=== PATIENT | female | born 1955 ===

== ENCOUNTER 2020-12-19 08:50 | Outpatient (REF) | payer MEDICARE, SELFPAY ==
[2020-12-19 11:20] LABS: Glucose Urine UA NEG (NEG); Leukocyte Esterase Urine NEG (NEG); Nitrite Urine NEG (NEG); Urine Blood NEG (NEG); Urine Ketones NEG (NEG); Urine Protein NEG (NEG-TRACE)
[2020-12-19 11:22] LABS: Appearance Urine CLEAR; Color Urine YELLOW
[2020-12-19 11:32] LABS: RBC Urine 0 /HPF (0); WBC Urine 0 /HPF (0-4)
[2020-12-19 11:39] LABS: Basophils Percent Auto 0.7 % (0-2); Eosinophils Percent Auto 0.7 % (0-4); Hematocrit 44.3 % (37-47); Hemoglobin 13.5 g/dl (12.0-16.0); Imm Gran Abs Auto 0.01 X10*3/uL (0.00-0.03); Imm Gran Pct Auto 0.2 % (0.0-0.4); Lymphocytes Absolute Auto 1.8 X10*3/uL (1.2-4.9); Lymphocytes Percent Auto 40.5 % (20-40); MANUAL DIFF FLAG SCAN; Mean Corpuscular HGB Conc 30.5 g/dl (31.0-35.0); Mean Corpuscular Hemoglobin 20.2 pg (27.0-33.0); Mean Corpuscular Volume 66.2 fL (80-98); Monocytes Absolute Auto 0.3 X10*3/uL (0.1-1.2); Monocytes Percent Auto 6.4 % (2-11); Neutrophils Absolute Auto 2.3 X10*3/uL (2.0-8.3); Neutrophils Percent Auto 51.5 % (45-73); PLT CLUMP 1; Red Blood Count 6.69 X10*6/uL (4.20-5.50); Red Cell Distribution Width 18.1 % (11.0-16.0); SCAN SMEAR FLAG 1
[2020-12-19 12:05] LABS: Platelet Count 54 X10*3/uL (160-400); White Blood Count 4.5 X10*3/uL (4.8-10.8)
[2020-12-19 12:06] LABS: SLIDE REVIEW VERIFIED
[2020-12-19 12:35] LABS: Alanine Aminotransferase 17 U/L (0-31); Albumin Level 4.7 g/dL (3.5-5.0); Alkaline Phosphatase 90 U/L (39-117); Anion Gap 21 (12-20); Aspartate Amino Transferase 31 U/L (5-31); Bilirubin Total 0.8 mg/dL (0.0-1.0); Blood Urea Nitrogen 20 mg/dL (9-16); Calcium 9.8 mg/dL (8.4-10.2); Carbon Dioxide 20 mmol/L (22-29); Chloride 106 mmol/L (96-108); Cholesterol 263 mg/dL; Estimated Glomerular Filt Rate > 60; Glucose Fasting 86 mg/dL (60-99); HDL Cholesterol 80 mg/dL; LDL Cholesterol Calculated 164 mg/dl; Potassium 4.6 mmol/L (3.3-5.1); Sodium 142 mmol/L (135-145); Total Protein 7.6 g/dL (6.5-8.0); Triglycerides 96 mg/dL
[2020-12-19 12:43] LABS: Vitamin D 25-OH Total 19.3 ng/mL (>30)
== END 2020-12-19 08:51 | disposition home or self-care (01) ==
LOC: HO.HMGCLDS 08:50
PROVIDERS: PCP Internal Medicine; Visit Provider Internal Medicine
DX: Z00.00 Encounter for general adult medical examination without abnormal findings (principal)
CPT/HCPCS: 36415; 80053; 80061; 81001; 82306; 85025

== ENCOUNTER 2020-12-28 08:54 | Outpatient (REF) | payer MEDICARE, SELFPAY ==
[2020-12-28 11:59] LABS: Lactate Dehydrogenase 181 U/L (122-220)
[2020-12-28 12:05] LABS: Hematocrit 40.1 % (37-47); Hemoglobin 12.2 g/dl (12.0-16.0); Mean Corpuscular HGB Conc 30.4 g/dl (31.0-35.0); Mean Corpuscular Hemoglobin 20.1 pg (27.0-33.0); Mean Corpuscular Volume 66.1 fL (80-98); Platelet Count 196 X10*3/uL (160-400); Red Blood Count 6.07 X10*6/uL (4.20-5.50); Red Cell Distribution Width 17.8 % (11.0-16.0); White Blood Count 4.8 X10*3/uL (4.8-10.8)
[2020-12-28 12:14] LABS: PLT ABN DIST 1
[2020-12-29 13:31] LABS: Anti Nuclear Antibody Screen NEGATIVE (NEGATIVE)
== END 2020-12-28 08:55 | disposition home or self-care (01) ==
LOC: HO.HMGCLDS 08:54
PROVIDERS: PCP Internal Medicine; Visit Provider Internal Medicine
DX: D69.6 Thrombocytopenia, unspecified (principal)
CPT/HCPCS: 36415; 83615; 85027; 86038; 86039

== ENCOUNTER 2021-02-23 08:13 | Outpatient (REF) | payer MEDICARE, SELFPAY ==
--- NOTE | ~2021-02-23 | MM_ITS ---
EXAMINATION: MM SCREENING DIGITAL BREAST TOMOSYNTHESIS, BILATERAL CLINICAL INFORMATION: Screening. Asymptomatic. The lifetime risk of breast cancer based on the Tyrer-Cuzick Model is 4.1%. COMPARISON: Mammography: September 30, 2017 and studies dating back to May 22, 2011 TECHNIQUE: Digital breast tomosynthesis is performed in both the craniocaudal and mediolateral oblique views along with computer-aided detection (CAD). Synthesized 2D images are generated from the tomosynthesis. FINDINGS: There are scattered areas of fibroglandular density (ACR BI-RADS breast composition Category b). There are no significant masses, abnormal calcifications, or other abnormalities. MM/MM tomosynthesis screening BI IMPRESSION: There are no significant changes from prior study. ASSESSMENT: BI-RADS 1: Negative RECOMMENDATION: Routine annual mammography screening. This patient's information was entered into a reminder system with a target due date for their next mammogram.
== END 2021-02-23 08:14 | disposition home or self-care (01) ==
LOC: HO.MAMMO 08:13
PROVIDERS: Visit Provider Internal Medicine
DX: Z12.31 Encounter for screening mammogram for malignant neoplasm of breast (principal)
CPT/HCPCS: 77063; 77067

== ENCOUNTER 2021-12-20 08:53 | Outpatient (REF) | payer MEDICARE, SELFPAY ==
[2021-12-20 11:33] LABS: Hematocrit 40.5 % (37.0-47.0); Hemoglobin 12.3 g/dl (12.0-16.0); Mean Corpuscular HGB Conc 30.4 g/dl (31.0-35.0); Mean Corpuscular Hemoglobin 20.1 pg (27.0-33.0); Mean Corpuscular Volume 66.1 fL (80.0-98.0); PLT CLUMP 1; Red Blood Count 6.13 X10*6/uL (4.20-5.50); Red Cell Distribution Width 17.2 % (11.0-16.0)
[2021-12-20 11:59] LABS: TSH reflex Free T4 1.69 uIU/mL (0.32-4.0); Vitamin D 25-OH Total 23.4 ng/mL (>30)
[2021-12-20 12:09] LABS: Alanine Aminotransferase 17 U/L (0-31); Albumin Level 4.5 g/dL (3.5-5.0); Alkaline Phosphatase 76 U/L (39-117); Anion Gap 15 (12-20); Aspartate Amino Transferase 25 U/L (5-31); Bilirubin Total 0.5 mg/dL (0.0-1.0); Blood Urea Nitrogen 21 mg/dL (9-16); Carbon Dioxide 24 mmol/L (22-29); Chloride 106 mmol/L (96-108); Cholesterol 273 mg/dL; Estimated Glomerular Filt Rate > 60; Glucose Fasting 99 mg/dL (60-99); HDL Cholesterol 78 mg/dL; LDL Cholesterol Calculated 171 mg/dl; Potassium 4.7 mmol/L (3.3-5.1); Sodium 140 mmol/L (135-145); Total Protein 7.2 g/dL (6.5-8.0); Triglycerides 122 mg/dL
[2021-12-20 12:48] LABS: Platelet Count 157 X10*3/uL (160-400)
== END 2021-12-20 08:54 | disposition home or self-care (01) ==
LOC: HO.HMGCLDS 08:53
PROVIDERS: Visit Provider Internal Medicine
DX: Z00.00 Encounter for general adult medical examination without abnormal findings (principal); E78.5 Hyperlipidemia, unspecified
CPT/HCPCS: 36415; 80053; 80061; 82306; 84443; 85027

== ENCOUNTER 2022-02-26 07:47 | Outpatient (REF) | payer MEDICARE, SELFPAY ==
--- NOTE | ~2022-02-26 | MM_ITS ---
EXAMINATION: MM SCREENING DIGITAL BREAST TOMOSYNTHESIS, BILATERAL CLINICAL INFORMATION: Screening. Asymptomatic. The lifetime risk of breast cancer based on the Tyrer-Cuzick Model is 4%. COMPARISON: Mammography: 02/23/2001, 09/30/2017 TECHNIQUE: Digital breast tomosynthesis is performed in both the craniocaudal and mediolateral oblique views along with computer-aided detection (CAD). Synthesized 2D images are generated from the tomosynthesis. FINDINGS: There are scattered areas of fibroglandular density (ACR BI-RADS breast composition Category b). There are no significant masses, abnormal calcifications, or other abnormalities. Parenchymal pattern is similar to prior studies. Small benign nodular asymmetry anterior left breast on CC view is stable. No developing density. The axilla and skin contours are unremarkable. MM/MM tomosynthesis screening BI IMPRESSION: No mammographic evidence of malignancy. ASSESSMENT: BI-RADS 2: Benign RECOMMENDATION: Routine annual mammography screening. This patient's information was entered into a reminder system with a target due date for their next mammogram.
--- NOTE | ~2022-02-26 | MM_ITS ---
EXAMINATION: BONE DENSITOMETRY CLINICAL INDICATION: Osteoporosis. COMPARISON: Baseline BD dated 10/31/2017. TECHNIQUE: Using a LIN TV DXA System (software version: 13.1) manufactured by [employer], dual-energy x-ray absorptiometry was performed of the lumbar spine and left hip. The images are of good technical quality. Summary results are attached. FINDINGS: AP SPINE L1-L4: Current: BMD 1.227 g/cm2, Z-score 1.9, T-score 0.4, normal, 1.4% decrease from baseline (<5% change is not significant). Baseline: BMD 1.245 g/cm2. LEFT FEMUR, NECK: Current: BMD 0.973 g/cm2, Z-score 1.1, T-score -0.5, normal. Baseline: BMD 0.940 g/cm2. LEFT FEMUR, TOTAL: Current: BMD 0.907 g/cm2, Z-score 0.5, T-score -0.8, normal, 1.7% decrease from baseline (<5% change is not significant). Baseline: BMD 0.923 g/cm2. IDENTIFIED RISK FACTORS: Menopause. HISTORY OF FRACTURE: None listed. MEDICATIONS: Vitamin D. MM/XR DEXA axial skeleton IMPRESSION: 1. DIAGNOSIS: Normal bone density based on the lowest T-score value of -0.8 in the total femur applying World Health Organization criteria. 2. 10-YEAR FRACTURE RISK PREDICTION, FRAX: According to the guidelines, FRAX calculation should only be performed on patients in the osteopenia bone density category. Therefore, FRAX was not performed on this patient. 3. Treatment Recommendations: NOF guidelines recommend consideration for treatment in postmenopausal women and men age 50 and older presenting with the following: -A hip or vertebral (clinical or morphometric) fracture. -T-score less than or equal to -2.5 at the femoral neck or spine after appropriate evaluation to exclude secondary causes. -Low bone mass at the hip or spine and a 10-year fracture probability by FRAX of greater than or equal to 3% for hip fracture or greater than or equal to 20% for major osteoporotic fracture based on the [place] adapted WHO algorithm. 4. Other Recommendations: All treatment decisions require clinical judgment and consideration of individual patient factors, including patient preferences, comorbidities, previous drug use, risk factors not captured in the FRAX model (e.g. frailty, falls, vitamin D deficiency, increased bone turnover, interval significant decline in bone density) and possible under or overestimation of fracture risk by FRAX. FUTURE SCAN RECOMMENDATION: People with diagnosed cases of osteoporosis or at high risk for fracture should have regular bone mineral density tests. For patients eligible for Medicare, routine testing is allowed once every 2 years. The testing frequency can be increased to one year for patients who have rapidly progressing disease, those who are receiving or discontinuing medical therapy to restore bone mass, or have additional risk factors.
== END 2022-02-26 07:48 | disposition home or self-care (01) ==
LOC: HO.MAMMO 07:47
PROVIDERS: PCP Internal Medicine; Visit Provider Internal Medicine
DX: Z12.31 Encounter for screening mammogram for malignant neoplasm of breast (principal); Z13.820 Encounter for screening for osteoporosis; M81.0 Age-related osteoporosis without current pathological fracture; Z78.0 Asymptomatic menopausal state
CPT/HCPCS: 77063; 77067; 77080

== ENCOUNTER 2022-12-25 08:51 | Outpatient (REF) | payer MEDICARE, SELFPAY ==
[2022-12-25 11:28] LABS: Basophils Absolute Auto 0.1 X10*3/uL (0.0-0.2); Eosinophils Absolute Auto 0.1 X10*3/uL (0.0-0.4); Eosinophils Percent Auto 1.6 % (0-4); Hemoglobin 12.3 g/dl (12.0-16.0); Imm Gran Abs Auto 0.01 X10*3/uL (0.00-0.03); Imm Gran Pct Auto 0.2 % (0.0-0.4); Lymphocytes Absolute Auto 2.3 X10*3/uL (1.2-4.9); Lymphocytes Percent Auto 44.5 % (20-40); MANUAL DIFF FLAG SCAN; Mean Corpuscular HGB Conc 30.8 g/dl (31.0-35.0); Mean Corpuscular Hemoglobin 20.4 pg (27.0-33.0); Mean Corpuscular Volume 66.4 fL (80.0-98.0); Monocytes Absolute Auto 0.4 X10*3/uL (0.1-1.2); Monocytes Percent Auto 8.4 % (2-11); Neutrophils Absolute Auto 2.3 x10*3/uL (2.0-8.3); Neutrophils Percent Auto 44.3 % (45-73); PLT CLUMP 1; Red Blood Count 6.02 X10*6/uL (4.20-5.50); SCAN SMEAR FLAG 1
[2022-12-25 11:29] LABS: Platelet Count 200 X10*3/uL (160-400); White Blood Count 5.1 X10*3/uL (4.8-10.8)
[2022-12-25 12:14] LABS: Alanine Aminotransferase 19 U/L (0-31); Albumin Level 4.6 g/dL (3.5-5.0); Alkaline Phosphatase 86 U/L (39-117); Anion Gap 14 (12-20); Aspartate Amino Transferase 25 U/L (5-31); Bilirubin Total 0.8 mg/dL (0.0-1.0); Blood Urea Nitrogen 13 mg/dL (9-16); Calcium 9.8 mg/dL (8.4-10.2); Carbon Dioxide 27 mmol/L (22-29); Chloride 106 mmol/L (96-108); Cholesterol 276 mg/dL; Estimated Glomerular Filt Rate > 60; Glucose Fasting 99 mg/dL (60-99); HDL Cholesterol 83 mg/dL; LDL Cholesterol Calculated 171 mg/dl; Potassium 4.2 mmol/L (3.3-5.1); Sodium 143 mmol/L (135-145); Triglycerides 114 mg/dL
[2022-12-25 12:26] LABS: SLIDE REVIEW VERIFIED
== END 2022-12-25 08:52 | disposition home or self-care (01) ==
LOC: HO.HMGCLDS 08:51
PROVIDERS: PCP Internal Medicine; Visit Provider Internal Medicine
DX: Z00.00 Encounter for general adult medical examination without abnormal findings (principal); E55.9 Vitamin D deficiency, unspecified; E78.5 Hyperlipidemia, unspecified
CPT/HCPCS: 36415; 80053; 80061; 82306; 85025

== ENCOUNTER 2023-06-11 09:13 | Emergency (ER) | payer MEDICARE, SELFPAY ==
--- NOTE | ~2023-06-11 | CT_ITS ---
EXAMINATION: CT ABDOMEN AND PELVIS WITH CONTRAST CLINICAL INFORMATION: Abdominal pain COMPARISON: None available. TECHNIQUE: Multidetector volumetric images were obtained from the superior aspect of the liver through the pubic symphysis following administration 85 mL of Omnipaque 350 intravenous contrast. Sagittal and coronal reformatted images were obtained on the technologist's workstation. This CT examination was performed using dose optimization techniques as appropriate, variously including the following: *Automated exposure control *Adjustment of mA and/or kV according to patient size (this includes techniques or standardized protocols for targeted exams where dose is matched to indication/reason for exam; i.e. extremities or head) *Use of iterative reconstruction technique DLP: 427 mGy-cm FINDINGS: Visualized lung bases are well aerated. The liver is mildly enlarged. There are a few subcentimeter hypodense foci within the liver which are too small to accurately characterize but statistically cysts. The gallbladder is normal in appearance. There is mild fatty atrophy of the pancreas. The spleen is normal in size. Small anterior splenule. The adrenal glands are unremarkable. Symmetrically enhancing kidneys. Bilateral parapelvic cysts are noted, more prominent within the left kidney. There is no hydronephrosis of either kidney. Normal caliber loops of small and large bowel. Normal appendix. There is circumferential mucosal thickening of the distal sigmoid colon and rectum with associated perirectal fat stranding. Small amount of free pelvic fluid is noted. Normal caliber abdominal aorta demonstrating mild atherosclerotic disease. Refluxing nondilated left ovarian vein noted. No retroperitoneal lymphadenopathy. Small fat-containing umbilical hernia. The bladder is normal in appearance. Coarsely calcified fibroid noted within an otherwise unremarkable appearing uterus. No inguinal lymphadenopathy. Mild diffuse degenerative changes of the spine. CT/CT abdomen pelvis w IV con IMPRESSION: Circumferential mucosal thickening of the distal sigmoid colon and rectum with associated perirectal fat stranding. 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 Fleischner guidelines were followed.
[2023-06-11 09:26] VITALS: BP 156/80; PULSE 100; RESP 19; TEMP 36.6; O2SAT 98; BMI 26.4
[2023-06-11 11:32] VITALS: BP 173/88; PULSE 96; RESP 16; TEMP 37.2; O2SAT 100
--- NOTE | 2023-06-11 11:39 | PC.NURSE ---
Pt is a/ox4. reporting she has not been able to have a BM x3 days, starting yesterday she reported she felt her rectum prolapse. she has been passing gas, burping, and able to pass some liquid when passing gas. BSx4. soft, mild tenderness noted in abdomen.
--- NOTE | 2023-06-11 12:46 | ED_ITS ---
HPI - General Adult General Chief complaint: General Medical Stated complaint: Medical Issue Time Seen by Provider: 06/11/23 11:26 History of Present Illness HPI narrative: Patient is a 66-year-old female presents today with having a possible rectal prolapse. Claims something is coming from her rectum. She was trying to cut a bowel movement. Denies any fever chills. No vomiting. Positive decreased appetite. Denies any fever chills. No chest pain. No diaphoresis. Positive history many years ago. Related Data Home Medications Medication Instructions Recorded Confirmed cholecalciferol (vitamin D3) 50 50 mcg PO DAILY 12/25/22 12/25/22 mcg (2,000 unit) capsule magnesium 200 mg tablet 200 mg PO DAILY 12/25/22 12/25/22 vitamin B complex 1 tab PO DAILY 12/25/22 12/25/22 Allergies Allergy/AdvReac Type Severity Reaction Status Date / Time No Known Allergies Allergy Verified 12/25/22 08:11 [No Known Allergies*] acetaminophen [Percocet] AdvReac Unknown nausea Verified 12/25/22 08:11 oxycodone [Percocet] AdvReac Unknown nausea Verified 12/25/22 08:11 Review of Systems 2 Review of Systems: No chest pain or shortness of breath no diaphoresis Yes all other systems are reviewed and are negative PMFSH Past Medical History Attestation statement: The following information was validated with the patient. Medical History Colon cancer screening Normal breast exam Vitamin D deficiency Hyperlipidemia Thrombocytopenia Annual physical exam Family History Family History Father No problems noted. Mother Diabetes Hypertension Stroke Social History Social History Housing: House Alcohol intake: current Patient Tobacco Use Status: Former Tobacco user Quit Date: 1995 Years Smoked: 20 years e-Cigarette/Vaping Use: Never Used Advance Directives: No Advance Directives Information Provided: Yes Current occupational status: retired Cognitive needs: No Hearing needs: No Vision needs: No Physical Exam ED Vital Signs: Vital Signs - 24 hr 06/11/23 09:26 06/11/23 11:32 06/11/23 15:23 Temperature 98 F 99.0 F 98.3 F Pulse Rate 100 96 90 Respiratory Rate 19 16 16 Blood Pressure 156/80 H 173/88 H 155/62 H Pulse Oximetry 98 100 98 Oxygen Delivery Method Room Air Room Air Room Air BMI result Body Mass Index 26.4 Appearance: Alert. Oriented X3. No acute distress. Eyes: Pupils equal, round and reactive to light. ENT: Pharynx normal. Neck: Normal inspection. Neck supple. No lymph nodes noted. No crepitus CVS: Normal heart rate and rhythm. Pulses normal. Normal S1 and S2 Respiratory: No respiratory distress. Breath sounds normal. No Wheezing. No rales Abdomen: Soft and nontender. No rigidity. No distention. good BS x4 Skin: Skin warm and dry. Normal skin color. Normal skin turgor. Extremities: No lower extremity edema. Neurovascular intact to all extremities. No Lacerations. No Rash Neuro: Oriented X 3. No motor deficit. No sensory deficit. Moving all extermities. No slurred speech Medications Administered Discontinued Medications Generic Name Dose Route Start Last Admin Trade Name Freq PRN Reason Stop Dose Admin Sodium Chloride 500 mls @ 999 mls/hr 06/11/23 12:45 06/11/23 15:07 Ns IV 06/11/23 13:15 999 mls/hr .Q31M TERRY Administration Sodium Biphosphate/Sodium Phosphate 133 ml 06/11/23 12:23 06/11/23 15:07 Sodium Phosphate,[place]-Dibasic 133 Ml Enema MN 06/11/23 12:24 133 ml ONCE ONE Administration Medical Decision Making Medical Decision Making [facility] Narrative: Patient complaining of possible prolapse of the rectum. On exam patient has no prolapse visible both from the vaginal side or from the rectal side. Nurse Sheridan was present during the exam. A rectal exam was done. Patient has grossly impacted with stool. I manually disimpacted patient with large amount of stool resulted. Subsequently an enema was given even more stool was removed. Symptomatic the patient feel improved. Because patient has abdominal pain more mature and a CT scan of the abdomen pelvis was ordered. Currently labs are pending CT scans are pending. Differential Diagnosis Differential Diagnoses: The differential diagnosis associated with the presentation includes Obstruction, diverticulitis, kidney stone, Admission/Observation Consideration of admission/observation: Escalation of care including admission/observation considered Lab Data [facility] Lab Attestation statement: I reviewed the patient's lab results. 06/11/23 15:29 06/11/23 15:29 Labs: Lab Results 06/11/23 Range/Units 13:15 Urine Color Yellow Urine Appearance Clear Urine pH 6.5 (5.0-9.0) Ur Specific [place] <= 1.005 (1.005-1.025) Urine Protein Negative (Neg-Trace) mg/dL Urine Glucose (UA) Negative (Negative) mg/dL Urine Ketones Negative (Negative) mg/dL Urine Blood Small (1+) H (Negative) Urine Nitrite Negative (Negative) Ur Leukocyte Esterase Moderate (2+) H (Negative) Urine RBC 3-5 H (0-2) /HPF Urine WBC 6-10 H (0-5) /HPF Ur Squamous Epith Cells 0-2 (0-2) /HPF Urine Bacteria Trace (None Seen) Hyaline Casts 0-2 (0-2) /LPF External Record Review External record reviewed: Office record Patient's primary care record was reviewed Discharge Plan Discharge Clinical Impression: Abdominal pain Patient Disposition: Still a Patient Prescriptions: No Action vitamin B complex Tablet 1 tab PO DAILY magnesium 200 mg tablet 200 mg PO DAILY cholecalciferol (vitamin D3) 50 mcg (2,000 unit) capsule 50 mcg PO DAILY
[2023-06-11 15:23] VITALS: BP 155/62; PULSE 90; RESP 16; TEMP 36.8; O2SAT 98
--- NOTE | 2023-06-11 15:37 | MHC.EDTECH ---
THIS PCT ASSUMED CARE OF PT AT 1500 ,VITALS SIGN TAKEN ,BLOOD DRAWN AND SENT TO LAB .
[2023-06-11 15:52] LABS: Basophils Percent Auto 0.2 % (0-2); Eosinophils Percent Auto 0.1 % (0-4); Hemoglobin 11.8 g/dl (12.0-16.0); Mean Corpuscular Hemoglobin 20.5 pg (27.0-33.0); SCAN SMEAR FLAG 1
[2023-06-11 15:53] LABS: Alanine Aminotransferase 11 U/L (0-31); Albumin Level 4.2 g/dL (3.5-5.0); Alkaline Phosphatase 74 U/L (39-117); Anion Gap 18 (12-20); Aspartate Amino Transferase 20 U/L (5-31); Bilirubin Direct 0.2 mg/dL (0.0-0.5); Bilirubin Total 0.7 mg/dL (0.0-1.0); Blood Urea Nitrogen 8 mg/dL (9-16); Calcium 9.6 mg/dL (8.4-10.2); Carbon Dioxide 17 mmol/L (22-29); Chloride 110 mmol/L (96-108); Creatinine Clr Calc Pharmacy 71.9; Estimated Glomerular Filt Rate > 60; Glucose Random 100 mg/dL (60-115); Lipase 13 U/L (8-78); Potassium 4.5 mmol/L (3.3-5.1); Sodium 140 mmol/L (135-145); Total Protein 6.9 g/dL (6.5-8.0)
[2023-06-11 15:54] LABS: Hematocrit 37.1 % (37.0-47.0); Imm Gran Abs Auto 0.04 X10*3/uL (0.00-0.03); Imm Gran Pct Auto 0.3 % (0.0-0.4); Lymphocytes Absolute Auto 1.9 X10*3/uL (1.2-4.9); Lymphocytes Percent Auto 13.7 % (20-40); MANUAL DIFF FLAG SCAN; Mean Corpuscular HGB Conc 31.8 g/dl (31.0-35.0); Monocytes Absolute Auto 1.2 X10*3/uL (0.1-1.2); Monocytes Percent Auto 8.8 % (2-11); Neutrophils Absolute Auto 10.4 x10*3/uL (2.0-8.3); Neutrophils Percent Auto 76.9 % (45-73); PLT CLUMP 1; Red Blood Count 5.77 X10*6/uL (4.20-5.50)
--- NOTE | 2023-06-11 15:55 | PC.NURSE ---
Pt removed from restraints at 1545 x4 extremities
[2023-06-11 16:00] LABS: Mean Corpuscular Volume 64.3 fL (80.0-98.0)
[2023-06-11 16:01] LABS: PLT ABN DIST 1; White Blood Count 13.5 X10*3/uL (4.8-10.8)
[2023-06-11 16:37] LABS: Platelet Count 191 X10*3/uL (160-400); SLIDE REVIEW VERIFIED
[2023-06-11] MEDS: levoFLOXacin 500 MG TABLET PO (17:33)
[2023-06-11] MEDS: metroNIDAZOLE 500 MG TABLET PO (17:33)
== END 2023-06-11 17:40 | disposition home or self-care (01) ==
PROVIDERS: Emergency Medicine Emergency Medical Services; Emergency Provider Emergency Medicine; PCP Internal Medicine
DX: R10.9 Unspecified abdominal pain (principal); N39.0 Urinary tract infection, site not specified; K56.41 Fecal impaction; E78.5 Hyperlipidemia, unspecified; Z79.899 Other long term (current) drug therapy
CPT/HCPCS: 36415; 74177; 80048; 80076; 81001; 83690; 85025; 87086; 96360; 99284; Q9967

== ENCOUNTER 2023-12-25 09:11 | Outpatient (REF) | payer MEDICARE, SELFPAY ==
[2023-12-25 13:30] LABS: MANUAL DIFF FLAG NO
[2023-12-25 13:54] LABS: Basophils Percent Auto 0.8 % (0-2); Eosinophils Percent Auto 0.8 % (0-4); Hematocrit 41.6 % (37.0-47.0); Hemoglobin 12.9 g/dl (12.0-16.0); Imm Gran Abs Auto 0.01 X10*3/uL (0.00-0.03); Imm Gran Pct Auto 0.2 % (0.0-0.4); Lymphocytes Absolute Auto 1.9 X10*3/uL (1.2-4.9); Lymphocytes Percent Auto 37.5 % (20-40); Mean Corpuscular Hemoglobin 20.3 pg (27.0-33.0); Mean Corpuscular Volume 65.6 fL (80.0-98.0); Monocytes Absolute Auto 0.4 X10*3/uL (0.1-1.2); Monocytes Percent Auto 8.1 % (2-11); Neutrophils Absolute Auto 2.6 x10*3/uL (2.0-8.3); Neutrophils Percent Auto 52.6 % (45-73); Platelet Count 192 X10*3/uL (160-400); Red Blood Count 6.34 X10*6/uL (4.20-5.50); Red Cell Distribution Width 18.1 % (11.0-16.0); White Blood Count 4.9 X10*3/uL (4.8-10.8)
[2023-12-25 14:14] LABS: Alanine Aminotransferase 24 U/L (0-31); Albumin Level 4.5 g/dL (3.5-5.0); Alkaline Phosphatase 77 U/L (39-117); Anion Gap 12 (12-20); Aspartate Amino Transferase 36 U/L (5-31); Bilirubin Total 0.5 mg/dL (0.0-1.0); Blood Urea Nitrogen 15 mg/dL (9-16); Calcium 9.8 mg/dL (8.4-10.2); Carbon Dioxide 26 mmol/L (22-29); Chloride 107 mmol/L (96-108); Cholesterol 267 mg/dL (<200); Estimated Glomerular Filt Rate > 60; Glucose Fasting 99 mg/dL (60-99); HDL Cholesterol 88 mg/dL (>40); LDL Cholesterol Calculated 159 mg/dL (<100); Potassium 4.1 mmol/L (3.3-5.1); Sodium 141 mmol/L (135-145); Total Protein 7.6 g/dL (6.5-8.0); Triglycerides 103 mg/dL (<150); Vitamin D 25-OH Total 44.9 ng/mL (>30)
== END 2023-12-25 09:12 | disposition home or self-care (01) ==
LOC: HO.HMGCLDS 09:11
PROVIDERS: PCP Internal Medicine; Visit Provider Internal Medicine
DX: Z00.00 Encounter for general adult medical examination without abnormal findings (principal); E55.9 Vitamin D deficiency, unspecified; E78.5 Hyperlipidemia, unspecified
CPT/HCPCS: 36415; 80053; 80061; 82306; 85025

== ENCOUNTER 2023-12-31 07:49 | Outpatient (AMB) | payer MEDICARE, SELFPAY ==
[2023-12-31 08:11] VITALS: BP 124/74; PULSE 84; O2SAT 96; BMI 28.3
--- NOTE | 2023-12-31 08:11 | MHC.PC.OV ---
Vital Signs 12/31/23 08:11 Height 5 ft 1 in Weight 150 lb BMI 28.3 BP 124/74 Blood Pressure Location Lt brachial Position Sitting Pulse 84 Pulse Source Pulse Oximeter Pulse Oximetry (%) 96 Oxygen Delivery Method Room Air Intake Visit Reasons: PE Intake Note: Ptr is here today for PE. Allergies acetaminophen [Percocet] Adverse Reaction (Unknown, Verified 12/31/23 08:14) nausea oxycodone [Percocet] Adverse Reaction (Unknown, Verified 12/31/23 08:14) nausea Medication List - Last Reconciled 12/31/23 by Sharon Fleming MD cholecalciferol (vitamin D3) 50 mcg PO DAILY magnesium 200 mg PO DAILY vitamin B complex 1 tab PO DAILY Tobacco use date assessed: 12/31/23 Fall risk assessment: No Falls in past year Last assessed Fall Risk: 12/31/23 Dental Screening Dental Screen Date: 12/31/23 Did you have a dental visit in the last 12 months?: Yes Did you have a dental problem in the last 6 months where you did not have access to dental care?: No Was dental information given to patient?: Patient has dentist HPI PE HPI Details Pt presents for PE. PFSH Medical History (Updated 12/31/23 @ 09:00 by Sharon Fleming MD) Colon cancer screening Normal breast exam Vitamin D deficiency Hyperlipidemia Thrombocytopenia Annual physical exam Surgical History Hx of cataract surgery Hx of section Family History Father No problems noted. Mother Diabetes Hypertension Stroke Social History Housing: House Alcohol intake: current Patient Tobacco Use Status: Former Tobacco user Quit Date: 1995 Years Smoked: 20 years e-Cigarette/Vaping Use: Never Used service: No Current occupational status: retired Cognitive needs: No Hearing needs: No Vision needs: No Questionnaire Thrive Questionnaire Date Thrive assessed: 12/25/22 ZANE-7 AMB Questionnaire ZANE-7 Date ZANE - 7 assessed: 12/25/22 Source: Developed by Drs. Sang Rhoades, Jackie Bright, Volodymyr Izaguirre and colleagues, with an educational nataliia from [employer]. Review of Systems Const All systems reviewed & are unremarkable except as noted in HPI and below Reports no additional complaints Eyes Reports no additional complaints ENT Reports no additional complaints Card Reports no additional complaints Resp Reports no additional complaints GI Reports no additional complaints Reports no additional complaints Physical exam (Primary Care) Vital Signs: Last Vital Signs Pulse 84 12/31/23 08:11 BP 124/74 12/31/23 08:11 Pulse Ox 96 12/31/23 08:11 Oxygen Delivery Method Room Air 12/31/23 08:11 BMI result Body Mass Index 28.3 Tobacco/Smoking Status: Tobacco use Status Tobacco use date assessed 12/31/23 12/31/23 08:17 Patient Tobacco Use Status Former Tobacco user 12/31/23 08:11 e-Cigarette/Vaping Use Never Used 12/31/23 08:11 Thrive Assessment: Date of Thrive Assessment Date Thrive assessed 12/25/22 12/31/23 08:11 Const General: no acute distress HENMT Head: Yes normal to inspection Ears: hearing grossly normal bilaterally Face and sinus: Yes normal facial exam Mouth: Normal oral and palatal mucosa present Throat: Yes posterior oropharynx normal Eyes General: appearance normal, both eyes and all related structures Neck Neck: Yes no lymphadenopathy and Yes supple Resp Effort & Inspection: normal respiratory effort Auscultation: clear to auscultation bilaterally Cardio Rhythm: regular rhythm Heart sounds: S1 normal heart sound present and S2 normal heart sound present GI Inspection: Yes normal to inspection Palpation (GI): Soft to palpation Percussion: Yes normal to percussion Auscultation: normal bowel sounds Assessment and Plan Assessment & Plan (1) Hyperlipidemia: Comment: On low-cholesterol diet, pt declined statin 12/23 Code(s): E78.5 - Hyperlipidemia, unspecified Plan: Low-cholesterol diet increase physical activity recheck lipid profile in 6 months. (2) Normal breast exam: Comment: mammogram 2021 Code(s): Z00.00 - Encounter for general adult medical examination without abnormal findings (3) Annual physical exam: Code(s): Z00.00 - Encounter for general adult medical examination without abnormal findings Plan: Well-balanced diet regular physical activity discussed with the patient, physical in 1 year (4) Vitamin D deficiency: Code(s): E55.9 - Vitamin D deficiency, unspecified Plan: Continue vitamin-D Orders: Orders Lipid Panel 6 Months E78.5 - Hyperlipidemia, unspecified Complete Blood Count Auto Diff 1 Year E55.9 - Vitamin D deficiency, unspecified, E78.5 - Hyperlipidemia, unspecified, Z00.00 - Encounter for general adult medical examination without abnormal findings Lipid Panel 1 Year E55.9 - Vitamin D deficiency, unspecified, E78.5 - Hyperlipidemia, unspecified, Z00.00 - Encounter for general adult medical examination without abnormal findings Vitamin D 25-OH Total 1 Year E55.9 - Vitamin D deficiency, unspecified, E78.5 - Hyperlipidemia, unspecified, Z00.00 - Encounter for general adult medical examination without abnormal findings MM screening mammo BI 1 Year E55.9 - Vitamin D deficiency, unspecified, E78.5 - Hyperlipidemia, unspecified, Z00.00 - Encounter for general adult medical examination without abnormal findings, Z12.31 - Encounter for screening mammogram for malignant neoplasm of breast Comprehensive [place]. Panel Fast 1 Year E55.9 - Vitamin D deficiency, unspecified, E78.5 - Hyperlipidemia, unspecified, Z00.00 - Encounter for general adult medical examination without abnormal findings TSH reflex Free T4 1 Year E55.9 - Vitamin D deficiency, unspecified, E78.5 - Hyperlipidemia, unspecified, Z00.00 - Encounter for general adult medical examination without abnormal findings Coding Level of Care Code Est Pt Prev Care >65y(48399) Diagnoses Hyperlipidemia E78.5 Normal breast exam Z00.00 Annual physical exam Z00.00 Vitamin D deficiency E55.9
== END 2023-12-31 08:52 | disposition home or self-care (01) ==
PROVIDERS: Visit Provider Internal Medicine
DX: E78.5 Hyperlipidemia, unspecified (principal); Z00.00 Encounter for general adult medical examination without abnormal findings; E55.9 Vitamin D deficiency, unspecified
CPT/HCPCS: 99397

== ENCOUNTER 2024-01-05 11:21 | Outpatient (REF) | payer MEDICARE, SELFPAY ==
--- NOTE | ~2024-01-05 | US_ITS ---
EXAMINATION: US THYROID CLINICAL INFORMATION: Multinodular thyroid goiter. COMPARISON: None available. TECHNIQUE: Linear transducer grayscale and color Doppler examination with attention to the region of the thyroid. FINDINGS: SIZE: Measurements of the thyroid lobes and nodules are given in sagittal, anteroposterior and transverse dimensions respectively. Right Thyroid Lobe: 4.9 x 2.8 x 1.9 cm, volume 13.7 mL. Parenchyma: The gland echotexture is heterogeneous. Thyroid vascularity is normal. Left Thyroid Lobe: 2.4 x 2.4 x 1.9 cm, volume 5.71 mL. Parenchyma: The gland echotexture is heterogeneous. Thyroid vascularity is normal. Isthmus: 0.8 cm in maximum AP dimension. Estimated total number of nodules greater than or equal to 1 cm: 5. Investigation Clerk nodules are described as follows: 1. Location: Right mid. Size: 2.4 x 2.4 x 1.9 cm, volume 5.71 mL. Nodule characteristics: Composition: Solid/almost completely solid (2). Echogenicity: Isoechoic (1). Shape: Taller than wide (3). Margins: Ill-defined (0). Echogenic Foci: None (0). ACR TI-RADS total points: 6 ACR TI-RADS category: 4 2. Location: Right lower pole medial. Size: 1.4 x 1.1 x 1.3 cm, volume 0.98 mL. Nodule characteristics: Composition: Solid (2). Echogenicity: Hypoechoic (2). Shape: Not taller than wide (0). Margins: Ill-defined (0). Echogenic Foci: Punctate echogenic foci (3). ACR TI-RADS total points: 7 ACR TI-RADS category: 5 3. Location: Left upper. Size: 1.2 x 0.9 x 1.0 cm, volume 0.57 mL. Nodule characteristics: Composition: Solid/almost completely solid (2). Echogenicity: Hypoechoic (2). Shape: Not taller than wide (0). Margins: Smooth (0). Echogenic Foci: Macrocalcifications (1). ACR TI-RADS total points: 5 ACR TI-RADS category: 4 4. Location: Left lower isthmus. Size: 1.3 x 0.7 x 1.1 cm, volume 0.52 mL. Nodule characteristics: Composition: Solid/almost completely solid (2). Echogenicity: Isoechoic (1). Shape: Not taller than wide (0). Margins: Ill-defined (0). Echogenic Foci: None (0). ACR TI-RADS total points: 3 ACR TI-RADS category: 3 5. Location: Left lower. Size: 2.5 x 1.3 x 1.5 cm, volume 2.55 mL. Nodule characteristics: Composition: Solid/almost completely solid (2). Echogenicity: Isoechoic (1). Shape: Not taller than wide (0). Margins: Ill-defined (0). Echogenic Foci: Macrocalcifications (1). ACR TI-RADS total points: 4 ACR TI-RADS category: 4 NODES: There is a 5.5 x 2.7 x 4.4 cm heterogeneous, hypoechoic complex solid mass with extensive internal vascularity in the left neck at level 2. Differential considerations include abnormal lymph node, carotid body tumor or other neck mass. MRI recommended for further evaluation. US/US thyroid IMPRESSION: 1. Multinodular thyroid gland. Evaluation limited as difficult to discern precise nodule margins. Left lower 2.5 cm TR 4 nodule, right mid to 0.4 cm TR 4 nodule and right lower 1.4 cm TR 5 nodule meet criteria for biopsy. Fine-needle aspiration of at least the largest 2 nodules recommended. 2. A 5.5 cm heterogeneous, hypoechoic complex solid mass with extensive internal vascularity in the left neck at level 2. Differential considerations include abnormal lymph node, carotid body tumor or other neck mass. MRI recommended for further evaluation. This study was presented today January 07, 2024 for interpretation. PSA staff will provide results to referring provider at this time. ACR TI-RADS RECOMMENDATION REFERENCE: Ultrasound-guided fine-needle aspiration, followup ultrasound, no further follow up. * TR1 (0 point) and TR2 (2 points): No FNA or follow up. * TR3 (3 points): FNA if more than or equal to 2.5 cm in maximum dimension, followup ultrasound in 1, 3 and 5 years if 1.5 to 2.4 cm in maximum dimension. * TR4 (4-6 points): FNA if more than or equal to 1.5 cm in maximum dimension, followup ultrasound in 1, 2, 3 and 5 years if 1 to 1.4 cm in maximum dimension. * TR5 (more than or equal to 7 points): FNA if more than or equal to 1 cm in maximum dimension, followup ultrasound every year for 5 years if 0.5 to 0.9 cm in maximum dimension. * TR3, TR4 or TR5 nodules that are below the size threshold for followup receive no follow up.
== END 2024-01-05 11:22 | disposition home or self-care (01) ==
LOC: HO.HMGCX 11:21
PROVIDERS: PCP Internal Medicine; Visit Provider Internal Medicine
DX: E04.9 Nontoxic goiter, unspecified (principal)
CPT/HCPCS: 76536

== ENCOUNTER 2024-01-06 08:05 | Outpatient (REF) | payer MEDICARE, SELFPAY ==
--- NOTE | ~2024-01-06 | MM_ITS ---
EXAMINATION: MM SCREENING DIGITAL BREAST TOMOSYNTHESIS, BILATERAL CLINICAL INFORMATION: Screening. Asymptomatic. COMPARISON: Mammography: 02/26/2022, 02/23/2001, 09/30/2017 TECHNIQUE: Digital breast tomosynthesis is performed in both the craniocaudal and mediolateral oblique views along with computer-aided detection (CAD). Synthesized 2D images are generated from the tomosynthesis. An additional full-field 3-D left MLO view was submitted. FINDINGS: There are scattered areas of fibroglandular density (ACR BI-RADS breast composition Category b). There are rare benign scattered benign type calcifications in both breasts. A tiny 4 mm nodular focal asymmetry in the anterior left breast is unchanged from numerous prior exams and benign. Stable benign intramammary lymph node in the lateral anterior right breast. There are no suspicious masses, suspicious grouped calcifications, or areas of architectural distortion in either breast. The parenchymal pattern is stable from prior exams. No suspicious skin or axillary abnormalities. MM/MM tomosynthesis screening BI IMPRESSION: No mammographic evidence of malignancy. No significant interval change. ASSESSMENT: BI-RADS BI-RADS 2 - Benign Findings RECOMMENDATION: Routine annual mammography screening. 1 year F/U This examination should not preclude the clinical evaluation of a suspicious palpable abnormality. This patient's information was entered into a reminder system with a target due date for their next mammogram.
== END 2024-01-06 08:06 | disposition home or self-care (01) ==
LOC: HO.MAMMO 08:05
PROVIDERS: PCP Internal Medicine; Visit Provider Internal Medicine
DX: Z12.31 Encounter for screening mammogram for malignant neoplasm of breast (principal)
CPT/HCPCS: 77063; 77067

== ENCOUNTER → 2024-01-06 08:15 | Outpatient (BNV) | payer MEDICARE, SELFPAY | PROVIDERS: PCP Internal Medicine; Visit Provider Radiology Diagnostic Radiology | DX: Z12.31 Encounter for screening mammogram for malignant neoplasm of breast (principal) | CPT/HCPCS: 77063; 77067 ==

== ENCOUNTER 2024-01-19 12:03 | Outpatient (REF) | payer MEDICARE, SELFPAY ==
[2024-01-19 14:32] LABS: TSH reflex Free T4 0.82 uIU/mL (0.32-4.0)
== END 2024-01-19 12:04 | disposition home or self-care (01) ==
LOC: HO.HMGCLDS 12:03
PROVIDERS: PCP Internal Medicine; Visit Provider Internal Medicine
DX: E04.2 Nontoxic multinodular goiter (principal)
CPT/HCPCS: 36415; 84443

== ENCOUNTER 2024-01-20 10:39 | Outpatient (REF) | payer MEDICARE, SELFPAY ==
--- NOTE | ~2024-01-20 | CT_ITS ---
EXAMINATION: CT SOFT TISSUE NECK WITH CONTRAST CLINICAL INFORMATION: Localized swelling, mass and lump, neck. COMPARISON: Thyroid ultrasound 01/05/2024 TECHNIQUE: Following the intravenous administration of 60 mL of Omnipaque 350 intravenous contrast, helical imaging was performed in the axial plane with generation of coronal and sagittal reformatted images. This CT examination was performed using dose optimization techniques as appropriate, variously including the following: *Automated exposure control *Adjustment of mA and/or kV according to patient size (this includes techniques or standardized protocols for targeted exams where dose is matched to indication/reason for exam; i.e. extremities or head) *Use of iterative reconstruction technique DLP: 270 mGy-cm FINDINGS: A 3.6 cm X 2.5 cm X5 0.0 cm (AP X lateral X SI) strongly enhancing lesion with mild heterogeneous enhancement resides in the region of the left carotid space partially splaying the internal and external carotid arteries and projecting posteromedial to the carotid bifurcation. The lesion is without associated calcification or adjacent inflammatory changes. Elsewhere in the neck, no lymphadenopathy is identified. The mass above corresponds to the heterogeneous, hypoechoic complex solid mass with extensive internal vascularity noted on the comparison thyroid ultrasound of 01/05/2024. The thyroid demonstrates bilateral low density nodules measuring up to approximately 11 mm in maximum dimension. A single dominant nodule measuring 11 mm in dimension is present anteriorly within the middle segment of the right lobe of the thyroid. A 7 mm low-density nodule is dominant within the right lobe of the thyroid within the middle segment laterally. Within the incidentally visualized intracranial structures, no abnormalities are identified though this examination is not tailored for optimal visualization of intracranial structures. Bilateral ocular lens replacements are noted. The mass above results in mild extrinsic rightward deformation of the pharynx. The larynx and pharynx are otherwise normal in appearance. The parotid, submandibular and visualized sublingual glands are normal in appearance. Multifocal dental amalgam is present and gives rise to scattering artifact partially obscuring visualization of adjacent transaxial structures. Mild scattered calcific plaques are present within the transverse aorta. Minimal calcific plaque is noted within the left carotid bulb. The incidentally visualized lung apices are clear. Minimal opacification of mastoid air cells at the mastoid tip is noted on the left and are of uncertain clinical significance. The remainder the paranasal sinuses, mastoid air cells and middle ear cavities are clear. Moderate posterior endplate disc-osteophyte complexes are partially visualized at C4-C5 and C5-C6. CT/CT soft tissue neck w IV con IMPRESSION: 1. Single 3.6 cm X 2.5 cm X 5.0 cm (AP X lateral X SI) mass in the region of the left carotid bifurcation with extensive internal vascularity corresponding to the mass noted on the comparison thyroid ultrasound of 01/05/2024 located the at the level of the left angle of the mandible. 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 No additional cervical lymphadenopathy identified. The differential diagnosis includes a carotid sheath schwannoma or enhancing lymph node. The location of this lesion with splaying of the carotid bulb is suggestive of a carotid body paraganglioma. Consider further evaluation with unenhanced and IV contrast-enhanced MRI of the neck which may reveal signal characteristics for a specific tumor entity and may better delineate the precise location of adjacent vascularity. 2. Multiple bilateral thyroid nodules measuring up to 11 mm in maximum dimension. The dominant nodule is present within the middle segment of the right lobe of the thyroid measuring 11 mm in maximum dimension. As noted on the comparison thyroid ultrasound of 01/05/2024 bilateral thyroid nodules on the basis of their sonographic characteristics warrant histologic sampling. Please refer to the examination of 01/05/2024 for related findings and impressions. 3. Partially visualized moderate posterior endplate disc-osteophyte complexes at C4-C5 and C5-C6.
[2024-01-20] MEDS: iohexoL 350 MG/ML 100 ML INFUS..BTL IV (11:49)
== END 2024-01-20 10:40 | disposition home or self-care (01) ==
LOC: HO.CT 10:39
PROVIDERS: PCP Internal Medicine; Visit Provider Internal Medicine
DX: R22.1 Localized swelling, mass and lump, neck (principal); E04.2 Nontoxic multinodular goiter; E04.9 Nontoxic goiter, unspecified
CPT/HCPCS: 70491; Q9967

== ENCOUNTER 2024-01-22 10:40 | Outpatient (AMB) | payer MEDICARE, SELFPAY ==
--- NOTE | 2024-01-22 10:54 | MHC.OFFVIS ---
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 It had been progressing for year 2. She denies any difficulty swallowing. She was actually scheduled for MRI but fortunately ended up getting a CT angiogram of the neck with contrast. 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 She now presents to us for vascular evaluation. [facility] Medical History Colon cancer screening Normal breast exam Vitamin D deficiency Hyperlipidemia Thrombocytopenia Annual physical exam Surgical History Hx of cataract surgery Hx of section Family History Father No problems noted. Mother Diabetes Hypertension Stroke Social History Housing: House Alcohol intake: current Patient Tobacco Use Status: Former Tobacco user Quit Date: 1995 Years Smoked: 20 years e-Cigarette/Vaping Use: Never Used service: No Current occupational status: retired Cognitive needs: No Hearing needs: No Vision needs: No Review of Systems Const All systems reviewed & are unremarkable except as noted in HPI and below Reports no additional complaints ENT Reports Normal hearing present Card Denies chest pain, Denies chest pain at rest, Denies chest pain with activity and Denies pedal edema Resp Denies cough GI Denies abdominal pain Musc Denies abnormal gait, Denies muscle cramps and Denies radiating pain into limb Skin/Breast Denies skin ulcer and Denies wounds Neuro Reports Normal hearing present and Denies abnormal gait Psych Reports no additional complaints Physical Exam Vital Signs: BMI result Body Mass Index 28.3 Const General: cooperative, healthy appearing and comfortable Orientation/consciousness: oriented to person, oriented to place and oriented to time HEENT Head: Yes normal to inspection Neck Neck: Yes normal visual inspection Carotids: no bruits Chest Chest palpation & inspection: normal inspection of the chest Resp Effort & Inspection: normal respiratory effort and able to speak in complete sentences Auscultation: clear to auscultation bilaterally, no crackles, no rales, no rhonchi and no wheezes Cardio Other: Prominent left carotid pulse with mass Rate: regular rate Rhythm: regular rhythm Heart sounds: S1 normal heart sound present and S2 normal heart sound present Bruits: no carotid bruits Peripheral pulses: Peripheral pulses 2+ throughout GI Inspection: Yes normal to inspection Skin Wounds: no wounds Hair: normal Neuro General: oriented to person, oriented to place and oriented to time Cranial nerves: Yes CN's II-XII intact bilaterally and Yes Normal hearing present Cognition (Neuro): normal cognition Motor exam (neuro): 5/5 motor strength present throughout Extrem Other: venous exam: No significant superficial varicosities or spider telangiectasias, minimal edema General: No clubbing, No cyanosis and No edema Psych Appearance: grossly normal Mental Status: mental status grossly normal Speech and movement: Normal speech and movement present Results Reviewed Results Reviewed: CT angiogram dated 01/20/2024 demonstrates a 3.6 x 2.5 x 5 cm carotid body tumor. 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 We will schedule her for left carotid angiogram with possible coiling. This has been discussed in detail with the patient along with risks, benefits, and complications. This includes but is not limited to bleeding, infection, heart attack, need for emergent surgical repair, limb ischemia, blood vessel damage, bleeding, puncture, kidney injury, bruising, allergic reaction, and skin reaction. The patient demonstrates a clear understanding. We will schedule for the next appropriate time. The case was discussed with Dr. Fleming phone Thank you for allowing us to assist in this patient's care. Coding Level of Care Code New Pt Level 4 (60425) Diagnoses Carotid body tumor D44.6
[2024-01-22 10:55] VITALS: BMI 28.3
== END 2024-01-22 11:30 | disposition home or self-care (01) ==
LOC: HO.HVS 10:40
PROVIDERS: PCP Internal Medicine; Visit Provider Surgery Vascular Surgery
DX: D44.6 Neoplasm of uncertain behavior of carotid body (principal)
CPT/HCPCS: 99204

== ENCOUNTER → 2024-01-22 10:40 | Outpatient (BNVA) | payer MEDICARE, SELFPAY | PROVIDERS: PCP Internal Medicine; Visit Provider Surgery Vascular Surgery | DX: D44.6 Neoplasm of uncertain behavior of carotid body (principal) | CPT/HCPCS: 99202 ==

== ENCOUNTER 2024-02-11 07:12 | Day surgery (SDC) | payer MEDICARE, SELFPAY ==
[2024-02-11] VITALS (8 sets, daily range): BP systolic 143–164; BP diastolic 62–78; PULSE 63–77; RESP 16–20; TEMP 36.1–37.1; O2SAT 97–99; BMI 28.4
[2024-02-11] MEDS: 0.9 % Sodium Chloride 1,000 ML 100 ML IVCONT (08:09)
[2024-02-11 08:19] LABS: MANUAL DIFF FLAG NO
[2024-02-11 08:22] LABS: Basophils Percent Auto 0.6 % (0-2); Eosinophils Absolute Auto 0.1 X10*3/uL (0.0-0.4); Eosinophils Percent Auto 1.5 % (0-4); Hematocrit 38.8 % (37.0-47.0); Hemoglobin 12.2 g/dl (12.0-16.0); Imm Gran Abs Auto 0.01 X10*3/uL (0.00-0.03); Imm Gran Pct Auto 0.2 % (0.0-0.4); Lymphocytes Absolute Auto 1.9 X10*3/uL (1.2-4.9); Mean Corpuscular HGB Conc 31.4 g/dl (31.0-35.0); Mean Corpuscular Hemoglobin 20.6 pg (27.0-33.0); Mean Corpuscular Volume 65.7 fL (80.0-98.0); Monocytes Absolute Auto 0.5 X10*3/uL (0.1-1.2); Neutrophils Absolute Auto 2.3 x10*3/uL (2.0-8.3); Neutrophils Percent Auto 48.7 % (45-73); Platelet Count 177 X10*3/uL (160-400); Red Blood Count 5.91 X10*6/uL (4.20-5.50); Red Cell Distribution Width 16.9 % (11.0-16.0); White Blood Count 4.8 X10*3/uL (4.8-10.8)
[2024-02-11 08:35] LABS: Blood Urea Nitrogen 13 mg/dL (9-16); Estimated Glomerular Filt Rate > 60
--- NOTE | 2024-02-11 12:24 | W.PM.OPN ---
Operative Note Operative Note Date of Service: 02/11/24 Narrative: Angiogram report from [facility] Preoperative diagnosis: Left carotid body tumor Postoperative diagnosis: Same Procedure: 1. Ultrasound-guided right common femoral access 2. Aortic arch angiogram 3. Selective left common carotid angiogram 4. Coil embolization of left external carotid artery Surgeon:Matt Agosto M.D., FACS, RPVI Jacquard Twine Polisher Operator:None Anesthesia: Local with moderate conscious sedation. Total intraservice moderate sedation time was 75 minutes. I monitored the patient's level of consciousness and physiologic status continuously throughout the procedure. Specimens:none Drains:none Estimated blood loss: Less than 10 ml Implant: Coils 3 x 40, 3 x 40, 4 x 10, 5 MVP plug Indications: Very pleasant 68-year-old female was found to have carotid body tumor as noted on CT scan. Due to the large size decision was made for preoperative imaging and coil embolization of external carotid artery. She was aware of the risk of stroke prior to procedure The patient has signed the informed consent after reviewing risks, complications, benefits, and alternatives previously discussed with the patient. The patient was given the opportunity to ask any additional questions or voice any concerns. All questions were answered to the patient's satisfaction. Procedure in detail: Patient was brought to the angiography suite prior to which a time-out was called for patient identification and site verification. Bilateral groins were prepped and draped in the standard surgical fashion. Under ultrasound guidance right common femoral was punctured with micro puncture needle and wire. Subsequently a precision 5 Greenlandic sheath was then placed. mVisumson wire was advanced to the level of the aorta. We brought a 5 Greenlandic flush catheter up to the aortic arch. Aortogram was then undertaken. At this time 5000 units of systemic heparin was administered. After 5 minutes of circulation time we advanced a [address] [place] the way up into the aortic arch. We were able to selectively cannulate the left common carotid quite easily. Wire was brought to the external carotid. We then put the 6 Greenlandic sheath at the common carotid. Using in microcatheter we were able to selectively cannulate the external carotid on the left side. We identified a side branch and plug this with a 3 by 4 coil followed by a 2nd 3 x 4 coil and finally a 4 x 10 coil. More towards the base of the external carotid where the carotid body tumor was feeding we then placed a 5 MVP plug. Completion angiogram demonstrated good result. Catheter wire sheath was brought back down to the right groin. CELT closure device was then deployed. Patient tolerated the procedure well. Returned to recovery with stable vitals Interpretation of films: 1. Ultrasound demonstrates appropriate femoral access site. Vessel was patent with minimal stenosis. Needle entry was visualized. Image of ultrasound was saved. 2. Aortogram demonstrates appropriate caliber aorta. Type 2 arch 3. Iliac images demonstrate no significant disease 4. Left carotid clearly visualize the carotid body tumor. Appropriate coil embolization was noted on completion angiogram of the left external carotid artery. Conclusion: 1. Successful coil embolization of left external carotid artery. Patient will require surgical resection of this left carotid body tumor. 2. Anticoagulation status: No change This note is constructed using voice recognition software. While every effort has been made to ensure accuracy, jewelry estimator errors may have been included. Thank you for allowing me to participate in the care of your patient. Yours sincerely, Matt Agosto MD, FACS, R.P.V.I.
== END 2024-02-11 14:55 | disposition home or self-care (01) ==
PROVIDERS: PCP Internal Medicine; Visit Provider Surgery Vascular Surgery
DX: D44.6 Neoplasm of uncertain behavior of carotid body (principal)
CPT/HCPCS: 36222; 36415; 37242; 37243; 61626; 76937; 82565; 84520; 85025; 99152; 99153; A4364; C1725; C1760; C1769; C1887; C1894; C2623; J1644; J2250; J2310; J3010; Q9967

== ENCOUNTER → 2024-02-11 07:12 | Outpatient (BNV) | payer MEDICARE, SELFPAY | PROVIDERS: PCP Internal Medicine; Visit Provider Surgery Vascular Surgery | DX: D44.6 Neoplasm of uncertain behavior of carotid body (principal) | CPT/HCPCS: 36224; 75894; 75898; 76937; 99152 ==

== ENCOUNTER 2024-02-17 11:35 | Outpatient (AMB) | payer MEDICARE, SELFPAY ==
--- NOTE | 2024-02-17 11:32 | MHC.OFFVIS ---
Intake Visit Reasons: 1 week follow up Angio 02/11/24 Intake Note: 1 week follow up Left external carotid artery coil embolization 02/11/24, pt states there is some tightness in the neck usually at night time, also some pulling sensation when she turns her head. Accompanied by: Self / Same As Patient Allergies acetaminophen [Percocet] Adverse Reaction (Unknown, Verified 02/17/24 11:40) nausea oxycodone [Percocet] Adverse Reaction (Unknown, Verified 02/17/24 11:40) nausea HPI HPI 1 week follow up Angio 02/11/24: Details: Very pleasant 68 year presents for follow-up status post left external carotid coiling for left carotid body tumor. No postprocedure issues. Some mild bruising in the groin. Overall feels fairly well. She now presents for follow-up. Of note she goes for daily walks for over an hour can climb several flights of stairs with no issues. She denies any breathing issues PFSH Medical History Thalassanemia Colon cancer screening Normal breast exam Vitamin D deficiency Hyperlipidemia Thrombocytopenia Annual physical exam Surgical History Hx of cataract surgery Hx of section Family History Father No problems noted. Mother Diabetes Hypertension Stroke Social History Housing: House Alcohol intake: current Alcohol intake frequency: holidays/special occasions only Patient Tobacco Use Status: Former Tobacco user Years Smoked: 20 years e-Cigarette/Vaping Use: Never Used service: No Current occupational status: retired Cognitive needs: No Hearing needs: No Vision needs: No Review of Systems Const All systems reviewed & are unremarkable except as noted in HPI and below Reports no additional complaints ENT Reports Normal hearing present Card Denies chest pain, Denies chest pain at rest, Denies chest pain with activity and Denies pedal edema Resp Denies cough GI Denies abdominal pain Musc Denies abnormal gait, Denies muscle cramps and Denies radiating pain into limb Skin/Breast Denies skin ulcer and Denies wounds Neuro Reports Normal hearing present and Denies abnormal gait Psych Reports no additional complaints Physical Exam Const General: cooperative, healthy appearing and comfortable Orientation/consciousness: oriented to person, oriented to place and oriented to time HEENT Head: Yes normal to inspection Neck Neck: Yes normal visual inspection Carotids: no bruits Chest Chest palpation & inspection: normal inspection of the chest Resp Effort & Inspection: normal respiratory effort and able to speak in complete sentences Auscultation: clear to auscultation bilaterally, no crackles, no rales, no rhonchi and no wheezes Cardio Rate: regular rate Rhythm: regular rhythm Heart sounds: S1 normal heart sound present and S2 normal heart sound present Bruits: no carotid bruits Peripheral pulses: Peripheral pulses 2+ throughout GI Inspection: Yes normal to inspection Skin Wounds: no wounds Hair: normal Neuro General: oriented to person, oriented to place and oriented to time Cranial nerves: Yes CN's II-XII intact bilaterally and Yes Normal hearing present Cognition (Neuro): normal cognition Motor exam (neuro): 5/5 motor strength present throughout Extrem Other: venous exam: No significant superficial varicosities or spider telangiectasias, minimal edema General: No clubbing, No cyanosis and No edema Psych Appearance: grossly normal Mental Status: mental status grossly normal Speech and movement: Normal speech and movement present Results Reviewed Results Reviewed: CT scan written report and images reviewed from 01/20/2024 - 5 cm carotid body tumor Assessment & Plan Assessment & Plan (1) 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 She will require resection of left carotid body tumor. Risks benefits complications including but not limited to bleeding infection stroke and were discussed in detail with the patient. She understood and would like to move forward. Due to the nature of the surgery she will require cardiac risk stratification. Thank you for allowing us to assist in her care. If there are any questions or concerns please do not hesitate to contact us. Coding Level of Care Code Est Pt Level 4 (98295) Diagnoses Carotid body tumor D44.6
== END 2024-02-17 12:56 | disposition home or self-care (01) ==
PROVIDERS: PCP Internal Medicine; Visit Provider Surgery Vascular Surgery
DX: D44.6 Neoplasm of uncertain behavior of carotid body (principal)
CPT/HCPCS: 99214

== ENCOUNTER → 2024-02-17 11:35 | Outpatient (BNVA) | payer MEDICARE, SELFPAY | PROVIDERS: PCP Internal Medicine; Visit Provider Surgery Vascular Surgery | DX: D44.6 Neoplasm of uncertain behavior of carotid body (principal); Z98.890 Other specified postprocedural states | CPT/HCPCS: 99212 ==

== ENCOUNTER 2024-02-24 09:20 | Outpatient (AMB) | payer MEDICARE, SELFPAY ==
--- NOTE | 2024-02-24 09:32 | MHC.OFFVIS ---
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 She denies any history of coronary disease or myocardial infarction or cardiomyopathy or in fact any other cardiac issues. Within limits of her activity, she does not have any clear-cut cardiac symptoms. However, notices some vague arm discomfort at times but more so at rest and not with activity. She blames it on anxiety as she states she worries too much. By vascular note, she has been diagnosed with carotid body tumor and requires surgery for the same. [facility] Medical History Thalassanemia Colon cancer screening Normal breast exam Vitamin D deficiency Hyperlipidemia Thrombocytopenia Annual physical exam Surgical History Hx of cataract surgery Hx of section Family History Father No problems noted. Mother Diabetes Hypertension Stroke Social History Housing: House Alcohol intake: current Alcohol intake frequency: holidays/special occasions only Patient Tobacco Use Status: Former Tobacco user Years Smoked: 20 years e-Cigarette/Vaping Use: Never Used service: No Current occupational status: retired Cognitive needs: No Hearing needs: No Vision needs: No Review of Systems Const Denies weakness ENT Denies dizziness Card Reports chest pain, Denies chest pain with activity, Denies syncope, Denies rapid heart rate, Denies pedal edema, Denies edema, Denies leg edema, Denies lightheadedness, Denies palpitations, Denies dyspnea, Denies dyspnea on exertion and Denies orthopnea Resp Denies cough, Denies dyspnea and Denies dyspnea on exertion GI Denies hematochezia and Denies change in stool character Musc Denies abnormal gait, Denies muscle cramps, Denies muscle weakness, Denies numbness, Denies radiating pain into limb and Denies tingling Neuro Denies abnormal gait, Denies dizziness, Denies syncope, Denies numbness, Denies tingling and Denies weakness Endo Denies palpitations Physical Exam Vital Signs: Last Vital Signs Pulse 70 02/24/24 09:33 BP 128/62 02/24/24 09:33 BMI result Body Mass Index 27.9 Const General: comfortable and no acute distress Orientation/consciousness: patient oriented x3 HEENT Other: Unremarkable Head: Yes normal to inspection Neck Neck: Yes normal visual inspection Chest Chest palpation & inspection: normal inspection of the chest Resp Auscultation: clear to auscultation bilaterally Cardio Palpation: normal PMI Heart sounds: S1 normal heart sound present, S2 normal heart sound present, no gallops, Murmur heart sound present systolic II/ and at the right sternal border and no rubs GI Palpation (GI): Soft to palpation Back/Spine/Pelvis Other: unremarkable Skin General skin exam: no rashes or lesions noted Neuro General: patient oriented x3 Extrem General: Yes normal to inspection Psych Mental Status: mental status grossly normal Office Procedures EKG Details: EKG with sinus rhythm at 70/Min; incomplete right bundle-branch block pattern; [place]. 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 Can make an addendum after review of the above. Orders: Orders CA echo transthoracic complete Today Z01.810 - Encounter for preprocedural cardiovascular examination NM cardiolite stress test Today R07.2 - Precordial pain, Z01.810 - Encounter for preprocedural cardiovascular examination CA stress test Today R07.2 - Precordial pain, Z01.810 - Encounter for preprocedural cardiovascular examination Coding Level of Care Code New Pt Level 4 (01441) Diagnoses Preoperative cardiovascular examination Z01.810 Carotid body tumor D44.6 CPT Codes EKG - CPT: [id number], Complete ([id number])
[2024-02-24 09:33] VITALS: BP 128/62; PULSE 70; BMI 27.9
== END 2024-02-24 10:31 | disposition home or self-care (01) ==
PROVIDERS: PCP Internal Medicine; Visit Provider Internal Medicine
DX: Z01.810 Encounter for preprocedural cardiovascular examination (principal); D44.6 Neoplasm of uncertain behavior of carotid body
CPT/HCPCS: 93010; 99204

== ENCOUNTER → 2024-02-24 09:20 | Outpatient (BNVA) | payer MEDICARE, SELFPAY | PROVIDERS: PCP Internal Medicine; Visit Provider Internal Medicine | DX: Z01.810 Encounter for preprocedural cardiovascular examination (principal); I45.19 Other right bundle-branch block; D44.6 Neoplasm of uncertain behavior of carotid body | CPT/HCPCS: 93005; 99202 ==

== ENCOUNTER → 2024-02-25 09:16 | Outpatient (REF) | payer MEDICARE, SELFPAY ==
--- NOTE | ~2024-02-25 | NM_ITS ---
EXERCISE MYOCARDIAL PERFUSION STUDY INDICATION: Chest pain, assess for coronary disease and ischemia TECHNIQUE: The patient was brought in for an exercise perfusion study on 02/25/2024. Patient performed exercise as per Napoleon protocol and was injected 25 mCi of sestamibi once target heart rate was achieved. Images were obtained using the SPECT gamma camera interlaced with the gating device. Images were obtained in supine position. Resting perfusion study was performed on 02/26/2024. Patient was administered 25 mCi of sestamibi intravenously at rest. Images were then obtained in supine position. Images were processed with the software and compared side to side in short axis, horizontal long axis and vertical long axis views. Total DLP 50mGy-cm. FINDINGS: Raw images were reviewed. The stress perfusion study showed no significant perfusion abnormality. Both uncorrected as well as CT attenuation corrected images were reviewed. The gated study shows normal LV systolic function with calculated LVEF of 68%. LV cavity is normal in size. The gated study shows normal wall thickening and contraction of segments. Resting study shows no significant perfusion abnormality. Gating at rest reveals normal wall motion with ejection fraction at 64%. The findings are consistent with no clear reversible or fixed perfusion defects. NM/NM cardiolite stress test IMPRESSION: 1. Myocardial perfusion imaging study shows normal myocardial perfusion. 2. Gated LVEF is 68% during stress and 64% during rest. 3. Transient ischemic dilatation not present. EKG component of the test reported separately.
--- NOTE | 2024-02-25 09:20 | CA_ITS ---
Acquisition Time: 2024-02-25 09:23:22 Total Exercise Time: 00:07:53 Test Indications: CP Medications: SEE H Protocol: NICOLA Max HR: 150 BPM 100% of Pred: 150 BPM Max BP: 180/060 mmHG Max Work Load: 9.8 METS Exercise stress test exercise 7 min 53 sec of Nicola protocol achieving approximatelty 90% MPHR, with mild SOB, no chest discomforts, with isolated PACs seen through artifact, with resting HTN, normotensive response to exercise, without EKG changes. Nuclear images pending. Test reviewed with Dr. Hernadez Referred By: Vitaliy Huff Overread By: Ariane Strong
== END ==
LOC: HO.CARD 09:16
PROVIDERS: PCP Internal Medicine; Visit Provider Internal Medicine
DX: Z01.810 Encounter for preprocedural cardiovascular examination (principal); R07.2 Precordial pain
CPT/HCPCS: 78452; 93017; A9500

== ENCOUNTER → 2024-02-25 09:20 | Outpatient (BNV) | payer MEDICARE, SELFPAY | PROVIDERS: PCP Internal Medicine; Visit Provider Nurse Practitioner | DX: R07.9 Chest pain, unspecified (principal) | CPT/HCPCS: 78452; 93016; 93018 ==

== ENCOUNTER → 2024-03-10 09:45 | Outpatient (REF) | payer MEDICARE, SELFPAY ==
--- NOTE | 2024-03-10 10:02 | CA_ITS ---
Transthoracic Echocardiogram Patient (Last, First, Middle): Lakesha Betancourt, Gender: Female Date of : 1955 Age: 68 Procedure Date: 03/10/2024 Procedure Type: Transthoracic Echocardiogram Location: OP Height: 154.94 cm Weight: 65.77 kg BSA: 1.65 m2 Heart Rate: bpm BP: 136 / 82 mmHg Tray Setter: TO Referring MD: Vitaliy Huff MD Armed Security Guard: Michael Hernadez MD Symptoms: Z01.810 - Encounter for preprocedural cardiovascular examination Study Quality: Adequate ECG Rhythm: Sinus Conclusions: - 1. Normal LV ejection fraction 60-65% with impaired relaxation filling pattern 2. Normal cardiac valvular Dopplers 3. Normal RV systolic pressure 4. Upper limits of normal ascending aortic size 5. No gross pericardial effusion Findings Left Ventricle Normal left ventricular size, thickness, and systolic function. The visually estimated ejection fraction is between 60-65%. Spectral Doppler is indicative of an impaired relaxation filling pattern. E/E prime ratio is between 8 and 15 consistent with indeterminate filling pressures. Peak GLS is -21.6%, within normal limits. Right Ventricle Normal right ventricular cavity size and systolic function. Atria Both atria are normal in size. There is no evidence of interatrial shunt. Aortic Valve Normal aortic valve structure and function. There is no aortic valve stenosis. There is no aortic valve regurgitation. Mitral Valve Normal mitral valve structure and function. There is trace mitral valve regurgitation. There is no mitral valve stenosis. Pulmonic Valve The pulmonic valve is likely normal. Tricuspid Valve Normal tricuspid valve structure. There is trace tricuspid valve regurgitation. The right ventricular systolic pressure is normal. The right ventricular systolic pressure is 16 mmHg. Normal right atrial pressure. There is no evidence of pulmonary hypertension. Great Vessels All visible segments of the aorta are normal in size. The pulmonary artery was not well visualized. Venous The inferior vena cava is normal in size and collapses greater than 50% with inspiration. Pericardium/Pleural There is no evidence of pericardial effusion. Prior Study Comparison No prior study available for comparison. Measurements 2D Linear Measurements IVSd: 0.93 0.6-0.9/0.6-1.0 cm LVIDd: 3.53 3.9-5.3/4.2-5.9 cm LVIDd Index: 2.14 2.4-3.2/2.2-3.1 cm/m2 LVIDs: 2.22 2.0-3.6 cm LVPWd: 0.88 0.7-1.1 cm LA Diam: 3.30 2.7-3.8/3.0-4.0 cm LAIDs Index: 2.00 1.5-2.3 cm/m2 LV Mass: 112.88 67-162/88-224 g LV Mass Index: 68.42 43-95/49-115 g/m2 LVOT Diam: 2.00 3.0+(-)1.3 cm 2D Systolic Function EF 4C: 63.90 >55% EF 2C: 58.50 >55% EF BiP: 61.50 >55% Mitral Valve MV VTI: 0.25 MV Pk Humphrey: 1.13 MV Mn Humphrey: 0.53 MV Pk Grad: 5.00 MV Mn Grad: 2.00 MV Pk E: 0.83 MV PK A: 0.93 MV Decel Time: 181.00 E/A: 0.90 E'Lateral: 6.53 E'Medial: 4.79 E/E' Med: 17.30 E/E' Lat: 12.70 PHT: 53.00 MVA PHT: 4.15 MVA Continuity: 2.89 Decel [place]: 4.58 Aortic Valve AoV Pk Humphrey: 1.26 AoV Mn Humphrey: 0.74 AoV VTI: 0.23 AoV Pk Grad: 6.00 Aov Mn Grad: 3.00 ELENA Cont.VTI: 3.11 LVOT LVOT Pk Humphrey: 1.10 LVOT Mn Humphrey: 0.72 LVOT VTI: 0.23 LVOT Pk Grad: 5.00 LVOT Mn Grad: 2.00 LVOT Diam: 2.00 LVOT Area: 3.14 Diastolic Function MV Pk E: 0.83 MV Pk A: 0.93 E/A: 0.90 E'Medial: 4.79 E/E' Med: 17.30 E' Laterial: 6.53 E/E' Lat: 12.70 Right Ventricle TAPSE (mm): 25.40 TVS' Humphrey: 13.10 Tricuspid Valve TR Pk Humphrey: 1.82 TR Pk Grad: 13.00 RA Press: 3.00 RVSP: 16.00 Great Vessels Aorta Sinus of Valsalva: 3.26 2.0-3.5 cm Ao Asc: 3.60 2.1-3.4 cm Updated in Other Vendor System with Status of Final Michael Hernadez MD electronically signed on 03/11/2024 12:32:58 PM with status of Final
== END ==
LOC: HO.CARD 09:45
PROVIDERS: PCP Internal Medicine; Visit Provider Internal Medicine
DX: Z01.810 Encounter for preprocedural cardiovascular examination (principal)
CPT/HCPCS: 93306; 93356

== ENCOUNTER → 2024-03-10 10:02 | Outpatient (BNV) | payer MEDICARE, SELFPAY | PROVIDERS: PCP Internal Medicine; Visit Provider Internal Medicine Cardiovascular Disease | DX: I51.89 Other ill-defined heart diseases (principal) | CPT/HCPCS: 93306; 93356 ==

== ENCOUNTER → 2024-03-15 05:51 | Day surgery (SDC) | payer MEDICARE, SELFPAY | LOC: HO.SSS 05:52 | PROVIDERS: PCP Internal Medicine; Visit Provider Surgery Vascular Surgery | DX: I65.22 Occlusion and stenosis of left carotid artery (principal); Z53.8 Procedure and treatment not carried out for other reasons | CPT/HCPCS: J0690; J1644; J2795 ==

== ENCOUNTER 2024-03-15 06:08 | Inpatient (IN) | payer MEDICARE, SELFPAY ==
[2024-03-08 12:26] VITALS: BP 169/77; PULSE 76; RESP 16; O2SAT 95; BMI 27.5
--- NOTE | 2024-03-08 12:27 | P.CONAN_ITS ---
Documented by User: Kelley Armendariz NP 03/12/24 08:42 HPI - Anesthesia Eval Consult details Narrative: 68yo F for Left Carotid Body Tumor Removal, 03/15/24 s/p Coil embolization of left external carotid artery 01/2024 with Conscious Sedation Cardiac optimized per [facility] No recent illness No CP/SOB with walking miles PMFSH Active Problems Active Problems: All Active Problems Preoperative cardiovascular examination (Acute) Carotid body tumor (Acute) Neck mass (Acute) Multiple thyroid nodules (Acute) Enlarged thyroid (Acute) Colon cancer screening (Acute) Normal breast exam (Acute) Vitamin D deficiency (Acute) Hyperlipidemia (Acute) Thrombocytopenia (Acute) Annual physical exam (Acute) Past Medical History Medical History Arthritis Back pain Thalassanemia Colon cancer screening Normal breast exam Vitamin D deficiency Hyperlipidemia Thrombocytopenia Annual physical exam Family History Family History Father No problems noted. Mother Diabetes Hypertension Stroke Family history of problems with anesthesia: No (Sister long to wake with GA) Surgical History Surgical History Hx of tonsillectomy Hx of right knee surgery Hx of cataract surgery Hx of section History of Problems with Anesthesia: No Social History Social History Housing: House Are you a primary md do resident urgent care to a significant other at home: No Do you presently have visiting nurse or other home services: No Alcohol intake: current Alcohol intake frequency: 0-2 drinks per day Patient Tobacco Use Status: Former Tobacco user Years Smoked: 20 years e-Cigarette/Vaping Use: Never Used Use of substances other than those prescribed or required for medical reasons: No Have you been hit, kicked, punched, or otherwise hurt by someone within the past year? If so, by whom?: No Are you DNR?: No Advance Directives: No Advance Directives Information Provided: No Advance Directives on File: No Recently lost weight without trying: No Eating poorly because of decreased appetite: No Nutrition Risks: No Nutritional Risk Patient : No : No Poor oral hygiene: Yes (2 crowns , missing teeth on the bottom) service: No Current occupational status: retired Cognitive needs: No Hearing needs: No Vision needs: No Meds Allergies Allergy/AdvReac Type Severity Reaction Status Date / Time acetaminophen [Percocet] AdvReac Unknown nausea Verified 03/15/24 06:16 oxycodone [Percocet] AdvReac Unknown nausea Verified 03/15/24 06:16 Home Medications ?Medication ?Instructions ?Recorded ?Confirmed ?Last Taken ?Type magnesium 200 mg tablet 200 mg PO BEDTIME 12/25/22 03/08/24 03/13/24 History vitamin B complex 1 tab PO DAILY 12/25/22 03/08/24 03/13/24 History lactobacillus combination no.4 3 3,000 mmu cells PO DAILY 03/08/24 03/08/24 03/13/24 History billion cell capsule (Probiotic) Exam Pertinent Lab Results Pertinent Lab Results: Lab Results 03/08/24 03/08/24 Range/Units 13:10 13:13 WBC 6.9 (4.8-10.8) X10*3/uL RBC 5.91 H (4.20-5.50) X10*6/uL Hgb 12.1 (12.0-16.0) g/dl Hct 38.8 (37.0-47.0) % MCV 65.7 L (80.0-98.0) fL MCH 20.5 L (27.0-33.0) pg MCHC 31.2 (31.0-35.0) g/dl RDW 17.3 H (11.0-16.0) % Plt Count 206 (160-400) X10*3/uL MPV Not Reportable Absolute Nucleated RBC 0.000 (0.0-0.012) X10*3/uL Nucleated RBC % (auto) 0.0 (0.0-0.2) /100WBC PT 11.8 (11.1-13.3) SEC INR 1.0 (0.9-1.1) APTT 28.3 (26.0-36.8) SEC Sodium 142 (135-145) mmol/L Potassium 3.6 (3.3-5.1) mmol/L Chloride 107 (96-108) mmol/L Carbon Dioxide 26 (22-29) mmol/L Anion Gap 13 (12-20) BUN 18 H (9-16) mg/dL Creatinine 0.72 (0.5-1.4) mg/dL Estim Creat Clear Calc 63.2 Estimated GFR > 60 Random Glucose 99 (60-115) mg/dL Calcium 10.2 (8.4-10.2) mg/dL Blood Type O Positive Antibody Screen NEGATIVE Narrative Narrative: EKG 01/2024 sinus rhythm at 70/Min; incomplete right bundle-branch block pattern; normal W[place] and corrected QT NM cardiolite stress test 01/2024 IMPRESSION: 1. Myocardial perfusion imaging study shows normal myocardial perfusion. 2. Gated LVEF is 68% during stress and 64% during rest. 3. Transient ischemic dilatation not present. EKG component of the test reported separately. ECHO 03/2024 Conclusions: - 1. Normal LV ejection fraction 60-65% with impaired relaxation filling pattern 2. Normal cardiac valvular Dopplers 3. Normal RV systolic pressure 4. Upper limits of normal ascending aortic size 5. No gross pericardial effusion Airway Mallampati Class: II TM Dist: >3cm Neck ROM: Limited Loose/Missing/Broken Teeth: No (Crowned molars) Heart: RRR Lungs: CTAB Assessment and Plan Assessment Anesthesia Assessment: Anesthesia Plan Discussed and PAT Visit Final Anesthetic Review Family History of Problems with Anesthesia: No (Sister long to wake with GA) History of Problems with Anesthesia: No Documented by User: Romy Combs MD 03/15/24 08:38 [facility] Past Medical History Medical History Arthritis Back pain Thalassanemia Colon cancer screening Normal breast exam Vitamin D deficiency Hyperlipidemia Thrombocytopenia Annual physical exam Family History Family History Father No problems noted. Mother Diabetes Hypertension Stroke Family history of problems with anesthesia: No Surgical History Surgical History Hx of tonsillectomy Hx of right knee surgery Hx of cataract surgery Hx of section History of Problems with Anesthesia: No Social History Social History Housing: House Are you a primary md do resident urgent care to a significant other at home: No Do you presently have visiting nurse or other home services: No Alcohol intake: current Alcohol intake frequency: 0-2 drinks per day Patient Tobacco Use Status: Former Tobacco user Years Smoked: 20 years e-Cigarette/Vaping Use: Never Used Use of substances other than those prescribed or required for medical reasons: No Have you been hit, kicked, punched, or otherwise hurt by someone within the past year? If so, by whom?: No Are you DNR?: No Advance Directives: No Advance Directives Information Provided: No Advance Directives on File: No Recently lost weight without trying: No Eating poorly because of decreased appetite: No Nutrition Risks: No Nutritional Risk Patient : No : No Poor oral hygiene: Yes (2 crowns , missing teeth on the bottom) service: No Current occupational status: retired Cognitive needs: No Hearing needs: No Vision needs: No Meds Allergies Allergy/AdvReac Type Severity Reaction Status Date / Time acetaminophen [Percocet] AdvReac Unknown nausea Verified 03/15/24 06:16 oxycodone [Percocet] AdvReac Unknown nausea Verified 03/15/24 06:16 Home Medications ?Medication ?Instructions ?Recorded ?Confirmed ?Last Taken ?Type magnesium 200 mg tablet 200 mg PO BEDTIME 12/25/22 03/08/24 03/13/24 History vitamin B complex 1 tab PO DAILY 12/25/22 03/08/24 03/13/24 History lactobacillus combination no.4 3 3,000 mmu cells PO DAILY 03/08/24 03/08/24 03/13/24 History billion cell capsule (Probiotic) Exam Height,Weight and Vital Signs: Height 5 ft 1 in Weight 65.589 kg Vital Signs Temp Pulse Resp BP Pulse Ox O2 Del Method 03/15/24 06:19 97.7 F 74 18 143/71 H 98 Room Air Pertinent Lab Results Pertinent Lab Results: Lab Results 03/08/24 03/08/24 Range/Units 13:10 13:13 WBC 6.9 (4.8-10.8) X10*3/uL RBC 5.91 H (4.20-5.50) X10*6/uL Hgb 12.1 (12.0-16.0) g/dl Hct 38.8 (37.0-47.0) % MCV 65.7 L (80.0-98.0) fL MCH 20.5 L (27.0-33.0) pg MCHC 31.2 (31.0-35.0) g/dl RDW 17.3 H (11.0-16.0) % Plt Count 206 (160-400) X10*3/uL MPV Not Reportable Absolute Nucleated RBC 0.000 (0.0-0.012) X10*3/uL Nucleated RBC % (auto) 0.0 (0.0-0.2) /100WBC PT 11.8 (11.1-13.3) SEC INR 1.0 (0.9-1.1) APTT 28.3 (26.0-36.8) SEC Sodium 142 (135-145) mmol/L Potassium 3.6 (3.3-5.1) mmol/L Chloride 107 (96-108) mmol/L Carbon Dioxide 26 (22-29) mmol/L Anion Gap 13 (12-20) BUN 18 H (9-16) mg/dL Creatinine 0.72 (0.5-1.4) mg/dL Estim Creat Clear Calc 63.2 Estimated GFR > 60 Random Glucose 99 (60-115) mg/dL Calcium 10.2 (8.4-10.2) mg/dL Blood Type O Positive Antibody Screen NEGATIVE Laboratory Results - last 24 hr 03/08/24 03/15/24 13:10 06:36 WBC 4.2 L RBC 5.64 H Hgb 11.8 L Hct 36.7 L MCV 65.1 L MCH 20.9 L MCHC 32.2 RDW 16.7 H Plt Count 174 MPV 11.7 Absolute Nucleated RBC 0.000 Nucleated RBC % (auto) 0.0 PT 11.3 INR 0.9 APTT 29.5 Sodium 144 Potassium 4.0 Chloride 111 H Carbon Dioxide 23 Anion Gap 14 BUN 15 Creatinine 0.75 Estim Creat Clear Calc 60.4 Estimated GFR > 60 Random Glucose 106 Calcium 9.6 Blood Type O Positive Antibody Screen NEGATIVE Crossmatch See Detail Airway Mallampati Class: II TM Dist: >3cm Neck ROM: Limited Loose/Missing/Broken Teeth: Yes (Crowns intact. Missing molars. Denies broken or loose teeth) Assessment and Plan Assessment Anesthesia Assessment: Anesthesia Plan Discussed and Chart Reviewed Final Anesthetic Review Family History of Problems with Anesthesia: No History of Problems with Anesthesia: No NPO: Yes ASA Class: II Final Preanesthetic Review: No Changes in Pt Med Stat, Meds/Allgs Chart Reviewed, Consent Obtained/Reviewed and Anes Risks/Benef Reviewed Patient Risk: Intermediate Procedure Risk: High Assessment/Block/Sedation in SS: Assess/Block/Sedation-SS Anesthetic Plan Anesthetic Plan: GA and Other (Arterial line, possible blood transfusion, ICU post-op) Disposition: Standard PACU and Inp. Admit - ICU
[2024-03-08 14:52] LABS: Hematocrit 38.8 % (37.0-47.0); Hemoglobin 12.1 g/dl (12.0-16.0); Mean Corpuscular HGB Conc 31.2 g/dl (31.0-35.0); Mean Corpuscular Hemoglobin 20.5 pg (27.0-33.0); Mean Corpuscular Volume 65.7 fL (80.0-98.0); Platelet Count 206 X10*3/uL (160-400); Red Blood Count 5.91 X10*6/uL (4.20-5.50); Red Cell Distribution Width 17.3 % (11.0-16.0); White Blood Count 6.9 X10*3/uL (4.8-10.8)
[2024-03-08 14:57] LABS: Prothrombin Time 11.8 SEC (11.1-13.3)
[2024-03-08 15:00] LABS: Partial Thromboplastin Time 28.3 SEC (26.0-36.8)
[2024-03-08 15:08] LABS: Anion Gap 13 (12-20); Blood Urea Nitrogen 18 mg/dL (9-16); Calcium 10.2 mg/dL (8.4-10.2); Carbon Dioxide 26 mmol/L (22-29); Chloride 107 mmol/L (96-108); Creatinine Clr Calc Pharmacy 63.2; Estimated Glomerular Filt Rate > 60; Glucose Random 99 mg/dL (60-115); Potassium 3.6 mmol/L (3.3-5.1); Sodium 142 mmol/L (135-145)
[2024-03-15] VITALS (22 sets, daily range): BP systolic 118–177; BP diastolic 44–78; PULSE 64–93; RESP 11–20; TEMP 36.5–37.1; O2SAT 93–100; BMI 27.3
--- OUTSIDE RECORDS SUMMARY | 2024-03-15 06:13 | XMS_ITS | Patient Health Record ---
[facility] Address [address] [place] [address] Care Team Providers Care Community Integration Specialist Name Role Phone Bernadette CORTES, Sharon Primary Care Provider VioletElvira Dotson Unavailable [phone] ALLERGIES Allergen (clinical drug ingredient) Drug/Non Drug Allergy documented on EMR Reaction Allergy Type Onset Date Status acetaminophen / oxycodone Percocet Unknown Drug Allergy Active Seasonal IC Unknown Drug Allergy Activ e REASON FOR REFERRAL No Information MEDICATIONS Medication SIG (Take, Route, Frequency, Duration) Notes Start Date End Date Status Hair Skin Nails - as directed Orally Active Formula 7 The Solution 1 % 1 application Externally Once a day Active Magnesium Active Vitamin D3 Active Vitamin B Complex Ac tive Probiotic Active SOCIAL HISTORY Tobacco Use: Social History Observation Description Date Details (start date - stop date) Former Smoker NA - NA Sex Assigned At : Social History Observation Description Sex Assigned At Unknown Tobacco Use/Smoking Question Answer Notes Are you a: former smoker Additional Findings: Tobacco Non-User Current no n-smoker Alcohol Screen Question Answer Notes Did you have a drink contain ing alcohol in the past year? Yes How often did you have a dri nk containing alcohol in the past year? 2 to 3 times a week (3 points) Points 3 Interpretation Positive Tobacco use other than smoking: Question Answer Notes Are you an other tobacco user? No PROBLEMS Problem Type ICD Code Onset Dates Problem Status W/U Status Risk SNOMED Code Notes Problem Other hammer toe(s) (acquired), right foot (M20.41) Active confirmed Acquired hammer toe of right foot (2233152793075230) Problem Hallux valgus (acquired), left foot (M20.12) Active confirmed Acquired hallux valgus (76819629) Problem Other hammer toe(s) (acquired), left foot (M20.42) Active confirmed Acquired hammer toe of left foot (4305825410579273) Problem Plantar wart (B07.0) Active confirmed Plantar wart (97282219) Problem Primary osteoarthrit is, right ankle and foot (M19.071) Active confirmed Localized, prim tico osteoarthritis of the ankle and/or foot (247846002) Problem Hallux valgus (acquired), right foot (M20.11) Active confirmed Acquired hallux valgus (29497724) VITAL SIGNS Blood pressure diastolic 70 mm Hg 08/11/2023 Height 5ft 1in in 08/11/2023 Blood pressure systolic 130 mm Hg 08/11/2023 Weight 140 lbs 08/11/2023 BMI 26.45 kg/m2 08/11/2023 PROCEDURES Procedure Date Ordered Date Performed Result Body Sit e 64160-WUCOXHE NAIL, 6 OR MORE 08/11/2023 N/A 91375-Oeoi Destruction, 1-14 08/11/2023 N/A Encounters Encounter Location Date Provider Diagnosis [facility] [address] [address] 08/11/2023 Elvira Black Tinea unguium B35.1 ; Pain in right toe(s) M79.674 ; Pain in left toe(s) M79.675 ; Ingrowing nail L60.0 ; Plantar wart B07.0 and Left foot pain M79.[address] [facility] [address] 02/10/2024 Elvira Mills [facility] [address] [address] 02/12/2024 Elvira Mills ASSESSMENTS Encounter Date Diagnosis Assessment Notes Treatment Notes Treatment Clinical Notes 08/11/2023 Tinea unguium (ICD-10 - B35.1) 08/11/2023 Pain in right toe(s) (ICD-10 - M79.674) 08/11/2023 Pain in left toe(s) (ICD-10 - M79.675) 08/11/2023 Ingrowing nail (ICD-10 - L60.0) 08/11/2023 Plantar wart (ICD-10 - B07.0) 08/11/2023 Left foot pain (ICD-10 - M79.672) PLAN OF TREATMENT Pending Test Test Name Order Date 32492-RHCXVOO NAIL, 6 OR MORE 04/13/2020 13684-EMKGEBS NAIL, 6 OR MORE 07/13/2020 72469-NUNVVFL NAIL, 6 OR MORE 11/20/2020 57334-RNNUQWU NAIL, 6 OR MORE 03/22/2021 51843-GEYPEWU NAIL, 6 OR MORE 07/23/2021 27465-AQPHRZM NAIL, 6 OR MORE 11/26/2021 53342-YFREILR NAIL, 6 OR MORE 03/25/2022 33354-BAMFUHO NAIL, 6 OR MORE 07/22/2022 31511-GPPNEPZ NAIL, 6 OR MORE 02/03/2023 17246-TLVDHFZ NAIL, 6 OR MORE 08/11/2023 08960-Fqsv Destruction, 1-14 08/11/2023 69031-Qvstczrz Plate 03/23/2020 23080-Kewhpbjq Plate 02/03/2023 96807-Rltkqfaa Plate 03/25/2022 90116-Dcbumrkx Plate 07/23/2021 83032-Pmmuujpt Plate 03/22/2021 09876-Horylijh Plate Each Additional 12/2022 23415- Debride <25 sq cm 04/13/2020 Next Appt Details Provider Name:Elvira Mills , 04/19/2024 01:45:00 PM, [address] [place], [address], Insurance Providers Payer Name Payer Address Payer Phone Subscriber Number Group Number Insured Name Patient Relationship to Insured Coverage Start Date Coverage End Date [facility] 65 Medicare Preferred [address] [place] [address] [phone] [id number] Lakesha Betancourt Self - patient is the insured MEDICAL (GENERAL) HISTORY Medical History History ICD Code Back,Hip,and Knee pain Cataracts crown on big tooth Back pain Surgical History Surgery Date(Month/Year) cataract-lens implants Torn [facility] Hospitalization History Reason Date(Month/Year[place] [facility] [place] Severe [place]/23
[2024-03-15 06:52] LABS: Hematocrit 36.7 % (37.0-47.0); Hemoglobin 11.8 g/dl (12.0-16.0); Mean Corpuscular HGB Conc 32.2 g/dl (31.0-35.0); Mean Corpuscular Hemoglobin 20.9 pg (27.0-33.0); Mean Corpuscular Volume 65.1 fL (80.0-98.0); Mean Platelet Volume 11.7 fL (9.4-12.3); Platelet Count 174 X10*3/uL (160-400); Red Blood Count 5.64 X10*6/uL (4.20-5.50); Red Cell Distribution Width 16.7 % (11.0-16.0); White Blood Count 4.2 X10*3/uL (4.8-10.8)
[2024-03-15 07:01] LABS: Anion Gap 14 (12-20); Blood Urea Nitrogen 15 mg/dL (9-16); Calcium 9.6 mg/dL (8.4-10.2); Carbon Dioxide 23 mmol/L (22-29); Chloride 111 mmol/L (96-108); Creatinine Clr Calc Pharmacy 60.4; Estimated Glomerular Filt Rate > 60; Glucose Random 106 mg/dL (60-115); INTERNATIONAL NORM RATIO 0.9 (0.9-1.1); Prothrombin Time 11.3 SEC (11.1-13.3); Sodium 144 mmol/L (135-145)
[2024-03-15 07:04] LABS: Partial Thromboplastin Time 29.5 SEC (26.0-36.8)
[2024-03-15] MEDS: Lactated Ringers 1,000 ML 100 ML IVCONT (07:26)
--- NOTE | 2024-03-15 07:41 | MHC.SHP ---
Pre-Procedural Eval Section A - 24 Hr Update-Section A only Date of Service: 03/15/24 The patient is an INPATIENT: No Changes since office visit: Yes Patient answered all questions The patient has been examined within 24 hours of the surgical procedure. The History & Physical has been completed within 30 days and I have reviewed it.: Yes Section B - Complete if H&P > 30 days Chief Complaint: postop Allergies: Allergies Allergy/AdvReac Type Severity Reaction Status Date / Time acetaminophen [Percocet] AdvReac Unknown nausea Verified 03/15/24 06:16 oxycodone [Percocet] AdvReac Unknown nausea Verified 03/15/24 06:16 Plan I have reviewed the history and physical and performed a pertinent physical examination on my patient. No changes have occurred unless specified. Time Spent With Patient Time: Total time managing care of this patient today ____ minutes.
--- NOTE | 2024-03-15 11:42 | P.OP_ITS ---
Operative Note Operative Note Date of Service: 03/15/24 Narrative: Operative note by [facility] Preoperative diagnosis:1. Left Carotid body tumor Postoperative diagnosis: Same Procedure:1. Left carotid body tumor removal 2. Lymph node biopsy Surgeon:Matt Agosto M.D. Survey Chief: Dr. Gregory Anesthesia: General Specimens: 1. Left Carotid mass 2. Lymph node Drains: 1 Estimated blood loss: 350 ml with 1 unit of packed red blood cells given back Indications: 68-year-old female was discovered to have left carotid mass. She would undergone CT angiogram which demonstrated this carotid by tumor. She preoperatively had undergone left external carotid coiling. She now presents for left carotid body mass removal. The patient has signed the informed consent after reviewing risks, complications, benefits, and alternatives previously discussed with the patient. The patient was given the opportunity to ask any additional questions or voice any concerns. All questions were answered to the patient's satisfaction. Procedure in detail: Patient was taken to the operating room and placed in a supine position and prepped and draped in sterile manner with ChloraPrep. Longitudinal incision was made along the anterior border of the left sternocle idomastoid carried down through the subcutaneous fat and fascia. Hemostasis was obtained with electrocautery. The platysma muscle was then divided. The carotid sheath was identified in open. The vagus nerve, Ancef cervicalis, and hypoglossal nerves were identified and avoided. The common internal and external carotids were then freed from the surrounding tissue. We did identify the hypoglossal nerve. In addition there was a lymph node that was easily identified removed and suture ligated with a 2-0 silk this was sent off as specimen as well. Meticulous dissection had to be done as we did encounter some bleeding from the mass itself. This had to be controlled with bipolar cautery. Once we were up at the apex we were able to use the Thunderbeat in order to slowly dissect using bipolar and ultrasonic energy. As we so we resected this off the apex we brought it off the carotids. Care was used to meticulously dissect this mass off. The mass was removed in its entirety. Of note we were able to visualize the hypoglossal nerve in its entirety. Once this was all accomplished adequate hemostasis was achieved. Wound was thoroughly irrigated. Deep layer was reapproximated using a 2-0 poly Sorb and finally the superficial layer with a 3-0 Polysorb. The skin was closed in a subcuticular manner. The patient awoke and neurologic status was checked and appeared to be intact. Sponge, needle and instrument counts were correct. The patient tolerated the procedure well. Returned to recovery with stable vitals. This note is constructed using voice recognition software. While every effort has been made to ensure accuracy, delivery stock clerk errors may have been included. Thank you for allowing me to participate in the care of your patient. Yours sincerely, Matt Agosto MD, FACS, R.P.V.I.
--- NOTE | 2024-03-15 13:03 | PHA.MEDREC ---
Pharmacy Consult ? Medication Reconciliation Pharmacy has completed the medication reconciliation. Reviewed med rec done by nursing to confirm it was correct
[2024-03-15] MEDS: 0.9 % Sodium Chloride 1,000 ML 80 ML IVCONT ×2 (13:08→19:46)
--- NOTE | 2024-03-15 14:50 | P.HPCC_ITS ---
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 Seen Dr. Agosto in his clinic and underwent an elective tumor resection this morning. Procedure was uneventful, and is being admitted to the medical ICU for postop monitoring. TTE prior to surgery looked okay Review of Systems 2 Constitutional: Constitutional: Denies body ache(s), Denies chills, Denies difficulty sleeping and Denies excessive sweating Eyes: Eyes: Denies change in vision and Denies decreased night vision ENT: Reports Normal hearing present, Denies bleeding gums and Denies vertigo Cardiovascular: Cardiovascular: Denies Abdominal Cramping after Meds and Denies Abdominal Distension Respiratory: Respiratory: Denies chest congestion and Denies cough Gastrointestinal: Gastrointestinal: Denies abdominal pain, Denies melena and Denies bloating Genitourinary: Genitourinary: Denies abnormal menses and Denies abnormal vaginal bleeding Musculoskeletal: Musculoskeletal: Denies abnormal gait and Denies back pain Neurologic: Reports Normal hearing present, Denies abnormal gait, Denies behavioral changes, Denies confusion and Denies vertigo Psychiatric: Psychiatric: Denies behavioral changes and Denies confusion Endocrine: Endocrine: Denies excessive sweating PMFSH Past Medical History Medical History Arthritis Back pain Thalassanemia Colon cancer screening Normal breast exam Vitamin D deficiency Hyperlipidemia Thrombocytopenia Annual physical exam Family History Family History Father No problems noted. Mother Diabetes Hypertension Stroke Surgical History Surgical History Hx of tonsillectomy Hx of right knee surgery Hx of cataract surgery Hx of section Social History Social History Household Members: None Housing: House Are you a primary hearing care practitioner to a significant other at home: No Do you presently have visiting nurse or other home services: No Alcohol intake: current Alcohol intake frequency: 0-2 drinks per day Patient Tobacco Use Status: Former Tobacco user Years Smoked: 20 years e-Cigarette/Vaping Use: Never Used Use of substances other than those prescribed or required for medical reasons: No Have you been hit, kicked, punched, or otherwise hurt by someone within the past year? If so, by whom?: No Do you feel safe in your current relationship?: No Current Relationship Is there a partner from a previous relationship who is making you feel unsafe now?: No Are you made to feel afraid or neglected: No Are you DNR?: No Advance Directives: No Advance Directives Information Provided: No Advance Directives on File: No Do you have a plan to hurt others: No Plan Recently lost weight without trying: No Eating poorly because of decreased appetite: No Nutrition Risks: No Nutritional Risk Patient : No : No Poor oral hygiene: No service: No Current occupational status: retired Cognitive needs: No Hearing needs: No Vision needs: No Meds Allergies Allergy/AdvReac Type Severity Reaction Status Date / Time acetaminophen [Percocet] AdvReac Unknown nausea Verified 03/15/24 06:16 oxycodone [Percocet] AdvReac Unknown nausea Verified 03/15/24 06:16 Active Medications: Current Medications Acetaminophen (Acetaminophen 325 Mg Tablet) 650 mg PO Q6H PRN PRN Reason: Pain, Mild (Pain Scale 1-3), fever or headache Calcium Carbonate (Calcium Carbonate 750 Mg Tab.Chew) 750 mg PO Q4H PRN PRN Reason: Heartburn Sodium Chloride (Ns) 1,000 mls @ 80 mls/hr IVCONT .[id number] TERRY Last Admin: 03/15/24 13:08 Dose: 80 mls/hr Cefazolin Sodium/Dextrose (Ancef) 2 gm in 50 mls @ 100 mls/hr IV POSTOP ONE Stop: 03/15/24 15:29 Labetalol HCl (Labetalol Hcl 100 Mg/20 Ml Vial) 20 mg IVPUSH Q4H PRN PRN Reason: SBP > 160 Magnesium Hydroxide (Milk Of Magnesia 30 Ml Oral.Susp) 30 ml PO DAILY PRN PRN Reason: Constipation Melatonin (Melatonin 3 Mg Tablet) 6 mg PO BEDTIME PRN PRN Reason: Insomnia Morphine Sulfate (Morphine Sulfate 2 Mg/Ml Cartridge) 2 mg IVPUSH Q4H PRN; Protocol PRN Reason: Pain, Severe (Pain Scale 7-10) Ondansetron HCl (Ondansetron Hcl 4 Mg/2 Ml Vial) 4 mg IVPUSH ONCE PRN PRN Reason: Nausea and Vomiting Stop: 03/15/24 15:22 Oxycodone HCl (Oxycodone Hcl Immed Release 5 Mg Tablet) 5 mg PO Q4H PRN PRN Reason: Pain, Moderate(Pain Scale 4-6) Sodium Chloride (0.9 % Sodium Chloride Flush 3 Ml Syringe) [facility] Medications ?Medication ?Instructions ?Recorded ?Confirmed ?Last Taken ?Type magnesium 200 mg tablet 200 mg PO BEDTIME 12/25/22 03/08/24 03/13/24 History vitamin B complex 1 tab PO DAILY 12/25/22 03/08/24 03/13/24 History lactobacillus combination no.4 3 3,000 mmu cells PO DAILY 03/08/24 03/08/24 03/13/24 History billion cell capsule (Probiotic) Physical Exam 2 Vital Signs: Vital Signs: Last Vital Signs Temp 97.8 F 03/15/24 12:08 Pulse 82 03/15/24 14:00 Resp 15 03/15/24 14:00 BP 151/72 H 03/15/24 14:00 Pulse Ox 93 03/15/24 14:00 O2 Del Method Room Air 03/15/24 14:00 O2 Flow Rate 6 03/15/24 11:38 BMI result Body Mass Index 27.3 General: Not in any acute distress, normal appearance Nutritional Appearance: Appropriate nourished and normal weight Eyes: appearance normal, both eyes and all related structures; Alignment and Position: alignment normal and position normal Neck: No lymphadenopathy, no thyromegaly, neck surgical sites look good, no bleeding Resp: bilateral air entry equal, no added sound present Cardio: Regular rate, regular rhythm; Heart sounds: S1 normal heart sound present and S2 normal heart sound present GI: soft, nontender, no guarding, no hepatosplenomegaly : bladder normal to inspection, bladder normal to palpation, no renal angle tenderness Skin: no rashes or lesions noted and elasticity normal Neuro: oriented to person, oriented to place, oriented to time and moves all extremities Const: General: No confusion Orientation/consciousness: No confusion Neuro: General: No confusion Cranial nerves: Yes Normal hearing present Results Labs 03/15/24 06:36 03/15/24 06:36 Labs: Laboratory Results - last 24 hr 03/08/24 03/15/24 13:10 06:36 MCV 65.1 L MCH 20.9 L MCHC 32.2 RDW 16.7 H Plt Count 174 MPV 11.7 Absolute Nucleated RBC 0.000 Nucleated RBC % (auto) 0.0 PT 11.3 INR 0.9 APTT 29.5 Anion Gap 14 Estim Creat Clear Calc 60.4 Estimated GFR > 60 Random Glucose 106 Calcium 9.6 Blood Type O Positive Antibody Screen NEGATIVE Crossmatch See Detail Assessment and Plan (1) Carotid body tumor: Status: Acute (2) Preoperative cardiovascular examination: Status: Acute (3) Neck mass: Status: Acute (4) Multiple thyroid nodules: Status: Acute (5) Enlarged thyroid: Status: Acute (6) Vitamin D deficiency: Status: Acute Plan 68-year-old lady with past medical history of hyperlipidemia, vitamin-D deficiency was admitted to the hospital this morning for an elective left carotid body paraganglioma removal which she underwent successfully without any complications. Admitted to the medical ICU for close postop monitoring. TTE prior to surgery looked good. Received 1 unit PRBC during the surgery. We will closely monitor for any signs of dysphagia, dysphonia or difficulty breathing. Closely monitor blood pressure, we will treat with IV labetalol if the systolics are above 160 mmHg. We will repeat a CBC this evening.
[2024-03-15] MEDS: ceFAZolin Sodium/Dextrose,Iso 2 GM/50 ML PIGGYBACK IV (15:23)
[2024-03-15] MEDS: 0.9 % Sodium Chloride Flush 3 ML SYRINGE IVFLUSH ×2 (15:24→19:56)
[2024-03-15] MEDS: Labetalol HCL 100 MG/20 ML VIAL 20 MG IVPUSH ×2 (15:24→19:46)
[2024-03-15 19:02] LABS: Hematocrit 35.4 % (37.0-47.0); Hemoglobin 11.7 g/dl (12.0-16.0); Mean Corpuscular HGB Conc 33.1 g/dl (31.0-35.0); Mean Corpuscular Hemoglobin 22.1 pg (27.0-33.0); Mean Corpuscular Volume 66.8 fL (80.0-98.0); PLT CLUMP 1; Red Cell Distribution Width 19.4 % (11.0-16.0)
[2024-03-15 19:25] LABS: Platelet Count 140 X10*3/uL (160-400); White Blood Count 11.5 X10*3/uL (4.8-10.8)
[2024-03-16] VITALS (17 sets, daily range): BP systolic 124–170; BP diastolic 48–76; PULSE 57–85; RESP 15–20; TEMP 36.8–36.9; O2SAT 93–99; BMI 29.2
[2024-03-16] MEDS: Labetalol HCL 100 MG/20 ML VIAL 20 MG IVPUSH (01:06)
[2024-03-16 05:32] LABS: MANUAL DIFF FLAG NO
[2024-03-16 05:35] LABS: Basophils Percent Auto 0.1 % (0-2); Eosinophils Percent Auto 0.1 % (0-4); Hematocrit 33.1 % (37.0-47.0); Hemoglobin 10.8 g/dl (12.0-16.0); Imm Gran Abs Auto 0.06 X10*3/uL (0.00-0.03); Imm Gran Pct Auto 0.5 % (0.0-0.4); Lymphocytes Absolute Auto 1.3 X10*3/uL (1.2-4.9); Lymphocytes Percent Auto 11.4 % (20-40); Mean Corpuscular HGB Conc 32.6 g/dl (31.0-35.0); Mean Corpuscular Hemoglobin 21.7 pg (27.0-33.0); Mean Corpuscular Volume 66.6 fL (80.0-98.0); Mean Platelet Volume 11.8 fL (9.4-12.3); Monocytes Absolute Auto 0.8 X10*3/uL (0.1-1.2); Monocytes Percent Auto 7.2 % (2-11); Neutrophils Percent Auto 80.7 % (45-73); Platelet Count 152 X10*3/uL (160-400); Red Blood Count 4.97 X10*6/uL (4.20-5.50); White Blood Count 11.2 X10*3/uL (4.8-10.8)
[2024-03-16 06:07] LABS: Anion Gap 12 (12-20); Blood Urea Nitrogen 7 mg/dL (9-16); Calcium 8.6 mg/dL (8.4-10.2); Carbon Dioxide 22 mmol/L (22-29); Chloride 109 mmol/L (96-108); Creatinine Clr Calc Pharmacy 75.6; Estimated Glomerular Filt Rate > 60; Glucose Random 139 mg/dL (60-115); Magnesium 1.8 mg/dL (1.6-2.6); Phosphorus 2.9 mg/dL (2.7-4.5); Potassium 3.3 mmol/L (3.3-5.1); Sodium 140 mmol/L (135-145)
[2024-03-16] MEDS: 0.9 % Sodium Chloride 1,000 ML 80 ML IVCONT (08:10)
[2024-03-16] MEDS: 0.9 % Sodium Chloride Flush 3 ML SYRINGE IVFLUSH (08:15)
--- NOTE | 2024-03-16 08:35 | HO.POSTANES ---
Post Anesthesia Evaluation Post Anesthesia Evaluation Date of Service: 03/15/24 Vital Signs: Vital Signs Temp Pulse Pulse Resp BP BP Pulse Ox 03/16/24 08:00 76 141/53 H 03/16/24 08:00 98.5 F 78 20 157/63 H 96 03/16/24 07:00 78 15 145/58 H 96 03/16/24 06:00 70 16 159/56 H 95 03/16/24 05:00 66 18 150/52 H 96 03/16/24 05:00 64 20 159/56 H 99 03/16/24 04:00 68 18 158/56 H 93 03/16/24 03:12 98.3 F 03/16/24 03:00 72 16 132/48 L 97 03/16/24 01:58 68 16 136/58 L 94 03/16/24 01:06 80 170/74 H 03/16/24 01:00 57 19 124/68 94 03/16/24 00:00 72 19 144/76 H 95 03/15/24 23:00 98.6 F 64 20 132/78 96 03/15/24 21:54 71 134/58 L 93 03/15/24 20:58 74 16 148/63 H 95 O2 Del Method 03/16/24 08:00 03/16/24 08:00 Room Air 03/16/24 07:00 Room Air 03/16/24 06:00 Room Air 03/16/24 05:00 Room Air 03/16/24 05:00 Room Air 03/16/24 04:00 Room Air 03/16/24 03:12 03/16/24 03:00 Room Air 03/16/24 01:58 Room Air 03/16/24 01:06 03/16/24 01:00 Room Air 03/16/24 00:00 Room Air 03/15/24 23:00 Room Air 03/15/24 21:54 Room Air 03/15/24 20:58 Room Air Anesthesia: General Endotracheal-GETA Mental Status: Awake Pain Control: Satisfactory Nausea/Vomiting: None Hydration: Adequate Anesthesia-Related Issues: No Anes. Related Issues
--- NOTE | 2024-03-16 09:46 | P.DS_ITS ---
DS: Providers Provider Date of Service: 03/16/24 Date of admission: 03/15/24 06:08 Date of discharge: 03/16/24 Primary care physician: Sharon Fleming MD Admitting clinician: Matt Agosto DS: Diagnosis Discharge Diagnosis (1) Carotid body tumor: Status: Acute (2) Preoperative cardiovascular examination: Status: Acute (3) Neck mass: Status: Acute (4) Multiple thyroid nodules: Status: Acute (5) Enlarged thyroid: Status: Acute (6) Vitamin D deficiency: Status: Acute DS: Summary Hospital Course Hospital Course: 68-year-old lady with past medical history of hyperlipidemia, vitamin-D deficiency noted mass in the neck for which she saw her primary care physician, underwent CT of the neck which 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 Seen Dr. Agosto in his clinic and underwent an elective tumor resection on 03/15/2024. Procedure was uneventful, and is being admitted to the medical ICU for postop monitoring. Her stay in the ICU remained very stable, no issues so she is being discharged home this morning. Status at Discharge Overall status at discharge: patient is back to baseline Time Attestation Total time managing care of this patient today: 35 mintues. Discharge Coordination Time (in mins): Time spent on discharge is about 35 minutes Quality: Safe Use of Opioids Does Pt have an Active Cancer Diagnosis on the Problem List?: Yes Opioid Measure Date for [facility] Report: 02/15/24 Opioid Measure Time for [facility] Report: 09:56 Quality: Stroke Does the patient have a stroke diagnosis?: No Physical Exam Vital Signs: Vital Signs: Last Vital Signs Temp 98.5 F 03/16/24 08:00 Pulse 85 03/16/24 09:00 Resp 20 03/16/24 09:00 BP 144/56 H 03/16/24 09:00 Pulse Ox 96 03/16/24 09:20 O2 Del Method Room Air 03/16/24 09:20 O2 Flow Rate 6 03/15/24 11:38 BMI result Body Mass Index 29.2 General: Not in acute distress Nutritional Appearance: Normal nourishment and normal weight Eyes: appearance normal, both eyes and all related structures; Alignment and Position: alignment normal and position normal Neck: No lymphadenopathy, no thyromegaly Resp: bilateral air entry equal, no added sounds Cardio: Regular rate, regular rhythm; Heart sounds: S1 normal heart sound present and S2 normal heart sound present GI: soft, nontender, no guarding, no hepatosplenomegaly : bladder normal to inspection, bladder normal to palpation, no renal angle tenderness Skin: no rashes or lesions noted and elasticity normal Neuro: oriented to person, oriented to place, oriented to time and moves all extremities DS: Data Data Completed and Pending Pending studies at discharge: Pending at discharge 03/15/24 10:55 Surgical [PTH] Routine Labs on day of discharge: Laboratory Results - last 24 hr 03/08/24 03/15/24 03/16/24 13:10 18:11 05:02 WBC 11.5 H 11.2 H RBC 5.30 4.97 Hgb 11.7 L 10.8 L Hct 35.4 L 33.1 L MCV 66.8 L 66.6 L MCH 22.1 L 21.7 L MCHC 33.1 32.6 RDW 19.4 H 19.0 H Plt Count 140 L 152 L MPV Not Reportable 11.8 Immature Gran % (Auto) 0.5 H Neut % (Auto) 80.7 H Lymph % (Auto) 11.[address] [place] % (Auto) 7.2 Eos % (Auto) 0.1 Baso % (Auto) 0.1 Lymph # (Auto) 1.3 [place] # (Auto) 0.8 Eos # (Auto) 0.0 Baso # (Auto) 0.0 Abs Immat Gran (auto) 0.06 H Absolute Neuts (auto) 9.0 H Absolute Nucleated RBC 0.000 0.000 Nucleated RBC % (auto) 0.0 0.0 Sodium 140 Potassium 3.3 Chloride 109 H Carbon Dioxide 22 Anion Gap 12 BUN 7 L Creatinine 0.62 Estim Creat Clear Calc 75.6 Estimated GFR > 60 Random Glucose 139 H Calcium 8.6 D Phosphorus 2.9 Magnesium 1.8 Blood Type O Positive Antibody Screen NEGATIVE Crossmatch See Detail Discharge Plan Discharge Anticipated Discharge Date/Time: 03/16/24 09:49 Patient Disposition: Home, Self-Care Discharge Diagnosis: Carotid body tumor Referrals: Sharon Fleming MD [Primary Care Provider] - 1 Week Discharge Medications: Continued Probiotic 3 billion cell Capsule 3,000 mmu cells PO DAILY Rx Instructions: administer with a meal vitamin B complex Tablet 1 tab PO DAILY magnesium 200 mg tablet 200 mg PO BEDTIME Discharge Orders: Discharge Order (Routine); Ordered 03/16/24 Ordered By: Rogelio Avila Activity on Discharge: As tolerated Stand Alone Forms: Patient Portal Discharge page Print Language: Maori Care Plan Goals: Follow up with vascular surgeon and primary care physician Health Concerns: None Plan of Treatment: Follow up with vascular surgeon and primary care physician Assessment: Follow up with vascular surgeon and primary care physician
--- NOTE | 2024-03-16 09:51 | MHC.CM.PN ---
Met with pt to review d/c planning needs: Pt is independent with all ADL's, has no DME or services and will d/c to home today. Her dtr will be staying with her for 1 week to assist in the post op recovery and will transport pt to home. HCP copy at home: requested copy. No other needs identified.
--- NOTE | 2024-03-16 14:07 | PM.DS ---
DS: Providers Provider Date of Service: 03/16/24 Date of admission: 03/15/24 06:08 Primary care physician: Sharon Fleming MD DS: Diagnosis Discharge Diagnosis (1) Carotid body tumor: Status: Acute (2) Preoperative cardiovascular examination: Status: Acute (3) Neck mass: Status: Acute (4) Multiple thyroid nodules: Status: Acute (5) Enlarged thyroid: Status: Acute (6) Vitamin D deficiency: Status: Acute DS: Summary Hospital Course Hospital Course: 68-year-old lady with past medical history of hyperlipidemia, vitamin-D deficiency noted mass in the neck for which she saw her primary care physician, underwent CT of the neck which 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 Seen Dr. Agosto in his clinic and underwent an elective tumor resection on 03/15/2024. Procedure was uneventful, and is being admitted to the medical ICU for postop monitoring. Her stay in the ICU remained very stable, no issues so she is being discharged home this morning. Time Attestation Discharge Coordination Time (in mins): 35 Quality: Safe Use of Opioids Does Pt have an Active Cancer Diagnosis on the Problem List?: No Quality: Stroke Does the patient have a stroke diagnosis?: No Physical Exam Vital Signs: Vital Signs: Last Vital Signs Temp 98.4 F 03/16/24 12:00 Pulse 69 03/16/24 13:00 Resp 18 03/16/24 13:00 BP 149/64 H 03/16/24 13:00 Pulse Ox 97 03/16/24 13:00 O2 Del Method Room Air 03/16/24 13:00 O2 Flow Rate 6 03/15/24 11:38 BMI result Body Mass Index 29.2 Const: General: cooperative, healthy appearing and no acute distress Orientation/consciousness: oriented to person, oriented to place and oriented to time HEENT: Head: Yes normal to inspection Neck: Carotids: no bruits Chest: Chest palpation & inspection: normal inspection of the chest Resp: Effort & Inspection: normal respiratory effort and able to speak in complete sentences Auscultation: clear to auscultation bilaterally Cardio: Rate: regular rate Heart sounds: S1 normal heart sound present and S2 normal heart sound present GI: Inspection: Yes normal to inspection Skin: Other: Neck incisions appear well healed General skin exam: no rashes or lesions noted Wounds: no wounds Neuro: General: oriented to person, oriented to place, oriented to time and CN's II-XI intact bilaterally Extrem: General: Yes normal to inspection, Yes full ROM and Yes no clubbing, cyanosis or edema Psych: Appearance: grossly normal and well kempt Speech and movement: Normal speech and movement present Affect: normal affect DS: Data Data Completed and Pending Pending studies at discharge: Pending at discharge 03/15/24 10:55 Surgical [PTH] Routine Labs on day of discharge: Laboratory Results - last 24 hr 03/08/24 03/15/24 03/16/24 13:10 18:11 05:02 WBC 11.5 H 11.2 H RBC 5.30 4.97 Hgb 11.7 L 10.8 L Hct 35.4 L 33.1 L MCV 66.8 L 66.6 L MCH 22.1 L 21.7 L MCHC 33.1 32.6 RDW 19.4 H 19.0 H Plt Count 140 L 152 L MPV Not Reportable 11.8 Immature Gran % (Auto) 0.5 H Neut % (Auto) 80.7 H Lymph % (Auto) 11.4 L [place] % (Auto) 7.2 Eos % (Auto) 0.1 Baso % (Auto) 0.1 Lymph # (Auto) 1.3 [place] # (Auto) 0.8 Eos # (Auto) 0.0 Baso # (Auto) 0.0 Abs Immat Gran (auto) 0.06 H Absolute Neuts (auto) 9.0 H Absolute Nucleated RBC 0.000 0.000 Nucleated RBC % (auto) 0.0 0.0 Sodium 140 Potassium 3.3 Chloride 109 H Carbon Dioxide 22 Anion Gap 12 BUN 7 L Creatinine 0.62 Estim Creat Clear Calc 75.6 Estimated GFR > 60 Random Glucose 139 H Calcium 8.6 D Phosphorus 2.9 Magnesium 1.8 Blood Type O Positive Antibody Screen NEGATIVE Crossmatch See Detail Discharge Plan Discharge Anticipated Discharge Date/Time: 03/16/24 09:49 Patient Disposition: Home, Self-Care Discharge Diagnosis: Carotid body tumor Referrals: Sharon Fleming MD [Primary Care Provider] - 1 Week Discharge Medications: New oxycodone-acetaminophen [Endocet] 5-325 mg tablet 1 tab PO Q8H PRN (Reason: pain) Qty: 10 0RF Rx Instructions: Partial Fill upon patient request. Continued Probiotic 3 billion cell Capsule 3,000 mmu cells PO DAILY Rx Instructions: administer with a meal vitamin B complex Tablet 1 tab PO DAILY magnesium 200 mg tablet 200 mg PO BEDTIME Discharge Orders: Discharge Order (Routine); Ordered 03/16/24 Ordered By: Rogelio Avila Diet: Advance to usual diet Activity on Discharge: As tolerated Stand Alone Forms: Patient Portal Discharge page Print Language: Greek Care Plan Goals: Follow up with vascular surgeon and primary care physician Health Concerns: None Plan of Treatment: Follow up with vascular surgeon and primary care physician Assessment: Follow up with vascular surgeon and primary care physician
== END 2024-03-16 14:30 | disposition home or self-care (01) | DRG 42 ==
LOC: HO.SSSA 06:11 → HO.ICU 11:39
PROVIDERS: Internal Medicine Critical Care Medicine; Nurse Practitioner; Admitting Provider Surgery Vascular Surgery; PCP Internal Medicine; Visit Provider Surgery Vascular Surgery
PROC: 07B20ZX Excision of Left Neck Lymphatic, Open Approach, Diagnostic (ICD-10-PCS; CPT 35301; principal; 2024-03-15 07:30)
DX: D44.6 Neoplasm of uncertain behavior of carotid body (principal); E78.5 Hyperlipidemia, unspecified; D56.9 Thalassemia, unspecified; E55.9 Vitamin D deficiency, unspecified; E04.1 Nontoxic single thyroid nodule; Z87.891 Personal history of nicotine dependence; Z79.899 Other long term (current) drug therapy
CPT/HCPCS: 36415; 80048; 83735; 84100; 85025; 85027; 85610; 85730; 86850; 86900; 86901; 86923; 88304; 88305; 88307; 88341; 88342; A4649; C1758; C9250; J0131; J0690; J1100; J1920; J2250; J2371; J2405; J2704; J2760; J3010; P9016

== ENCOUNTER → 2024-03-15 06:08 | Outpatient (BNV) | payer MEDICARE, SELFPAY | PROVIDERS: Admitting Provider Surgery Vascular Surgery; PCP Internal Medicine; Visit Provider Surgery Vascular Surgery | DX: D44.6 Neoplasm of uncertain behavior of carotid body (principal); R59.0 Localized enlarged lymph nodes | CPT/HCPCS: 38510; 60600; 99024 ==

== ENCOUNTER → 2024-03-15 06:08 | Outpatient (BNV) | payer MEDICARE, SELFPAY | PROVIDERS: Admitting Provider Surgery Vascular Surgery; PCP Internal Medicine; Visit Provider Internal Medicine Critical Care Medicine | DX: D44.6 Neoplasm of uncertain behavior of carotid body (principal); E04.2 Nontoxic multinodular goiter; E55.9 Vitamin D deficiency, unspecified | CPT/HCPCS: 99222; 99239 ==

== ENCOUNTER 2024-03-30 13:42 | Outpatient (AMB) | payer MEDICARE, SELFPAY ==
--- NOTE | 2024-03-30 13:45 | MHC.OFFVIS ---
Intake Visit Reasons: 2 week follow up left carotid body tumor removal Intake Note: Patient presents for 2 week follow up after her carotid tumor removal. Patient states she gets a tingling sensation once a day or so. No other complaints. Accompanied by: Self / Same As Patient Allergies acetaminophen [Percocet] Adverse Reaction (Unknown, Verified 03/30/24 13:47) nausea oxycodone [Percocet] Adverse Reaction (Unknown, Verified 03/30/24 13:47) nausea HPI HPI 2 week follow up left carotid body tumor removal: Details: Very pleasant 68-year-old female presents for resection of left carotid body tumor. Postoperatively she has done extremely well. No significant complaints. Some mild numbness over the incision line which has been improving. She now presents for routine postoperative follow-up. Of note she has been able to tolerate a regular diet with no issues. [facility] Medical History Arthritis Back pain Thalassanemia Colon cancer screening Normal breast exam Vitamin D deficiency Hyperlipidemia Thrombocytopenia Annual physical exam Surgical History Hx of tonsillectomy Hx of right knee surgery Hx of cataract surgery Hx of section Family History Father No problems noted. Mother Diabetes Hypertension Stroke Social History Household Members: None Housing: House Are you a primary college and career counselor to a significant other at home: No Do you presently have visiting nurse or other home services: No Alcohol intake: current Alcohol intake frequency: 0-2 drinks per day Patient Tobacco Use Status: Former Tobacco user Years Smoked: 20 years e-Cigarette/Vaping Use: Never Used service: No Current occupational status: retired Cognitive needs: No Hearing needs: No Vision needs: No Review of Systems Const All systems reviewed & are unremarkable except as noted in HPI and below Reports no additional complaints ENT Reports Normal hearing present Card Denies chest pain, Denies chest pain at rest, Denies chest pain with activity and Denies pedal edema Resp Denies cough GI Denies abdominal pain Musc Denies abnormal gait, Denies muscle cramps and Denies radiating pain into limb Skin/Breast Denies skin ulcer and Denies wounds Neuro Reports Normal hearing present and Denies abnormal gait Psych Reports no additional complaints Physical Exam Const General: cooperative, healthy appearing and comfortable Orientation/consciousness: oriented to person, oriented to place and oriented to time HEENT Head: Yes normal to inspection Neck Neck: Yes normal visual inspection Carotids: no bruits Chest Chest palpation & inspection: normal inspection of the chest Resp Effort & Inspection: normal respiratory effort and able to speak in complete sentences Auscultation: clear to auscultation bilaterally, no crackles, no rales, no rhonchi and no wheezes Cardio Rate: regular rate Rhythm: regular rhythm Heart sounds: S1 normal heart sound present and S2 normal heart sound present Bruits: no carotid bruits Peripheral pulses: Peripheral pulses 2+ throughout GI Inspection: Yes normal to inspection Skin Other: Left neck incision healing well Wounds: no wounds Hair: normal Neuro General: oriented to person, oriented to place and oriented to time Cranial nerves: Yes CN's II-XII intact bilaterally and Yes Normal hearing present Cognition (Neuro): normal cognition Motor exam (neuro): 5/5 motor strength present throughout Extrem Other: venous exam: No significant superficial varicosities or spider telangiectasias, minimal edema General: No clubbing, No cyanosis and No edema Psych Appearance: grossly normal Mental Status: mental status grossly normal Speech and movement: Normal speech and movement present Results Reviewed Results Reviewed: Pathology report - left paraganglioma negative for malignancy, lymph node negative Assessment & Plan Assessment & Plan (1) Carotid body tumor: Code(s): D44.6 - Neoplasm of uncertain behavior of carotid body Category: Medical Plan: In short patient has done well status post resection of left carotid paraganglioma. No postoperative issues. We will do a surveillance ultrasound to ensure that there is complete resection and carotid arteries have no significant stenosis. She will follow up with us in approximately 3 months time. (2) Bilateral carotid artery stenosis: Code(s): I65.23 - Occlusion and stenosis of bilateral carotid arteries Category: Medical Plan: Ultrasound surveillance in 3 months Orders: Orders US carotid duplex BI 3 Months I65.23 - Occlusion and stenosis of bilateral carotid arteries Coding Level of Care Code Est Pt Level 3 (86751) Diagnoses Carotid body tumor D44.6 Bilateral carotid artery stenosis I65.23
== END 2024-03-30 13:56 | disposition home or self-care (01) ==
PROVIDERS: PCP Internal Medicine; Visit Provider Surgery Vascular Surgery
DX: D44.6 Neoplasm of uncertain behavior of carotid body (principal); I65.23 Occlusion and stenosis of bilateral carotid arteries
CPT/HCPCS: 99024

== ENCOUNTER → 2024-03-30 13:42 | Outpatient (BNVA) | payer MEDICARE, SELFPAY | PROVIDERS: PCP Internal Medicine; Visit Provider Surgery Vascular Surgery | DX: D44.6 Neoplasm of uncertain behavior of carotid body (principal); I65.23 Occlusion and stenosis of bilateral carotid arteries | CPT/HCPCS: 99212 ==

== ENCOUNTER 2024-06-22 09:47 | Outpatient (REF) | payer MEDICARE, SELFPAY ==
--- NOTE | ~2024-06-22 | US_ITS ---
EXAMINATION: US EXTRACRANIAL CAROTID DUPLEX, BILATERAL CLINICAL INFORMATION: Carotid stenosis COMPARISON: None available. TECHNIQUE: Real-time ultrasound and Doppler techniques (integrating B-mode 2-D vascular images, Doppler spectral analysis and color-flow Doppler imaging) were utilized to interrogate the extracranial carotid arteries, the vertebral arteries and proximal subclavian arteries bilaterally. The degree of stenosis is determined by criteria similar to NASCET. FINDINGS: Right Side: 1. There is no significant atherosclerotic plaque seen in the bifurcation/proximal ICA region. 2. The common carotid artery PSV proximally is 86 cm/s and distally 89 cm/s. 3. The proximal internal carotid artery velocities are 80 cm/s systolic and 21 cm/s diastolic. 4. The proximal external carotid artery PSV is 84 cm/s. 5. The vertebral artery shows antegrade flow. 6. The subclavian artery waveforms are normal. Left Side: 1. There is no significant atherosclerotic plaque seen in the bifurcation/proximal ICA region. 2. The common carotid artery PSV proximally is 89 cm/s and distally 82 cm/s. 3. The proximal internal carotid artery velocities are 87 cm/s systolic and 16 cm/s diastolic. 4. The proximal external carotid artery PSV is 77 cm/s. 5. The vertebral artery shows antegrade flow. 6. The subclavian artery waveforms are normal. Left carotid bifurcation lesion is not visualized. US/US carotid duplex BI IMPRESSION: 1. RIGHT: Normal right internal carotid artery without atherosclerotic plaque or hemodynamically significant stenosis. 2. LEFT: Normal left internal carotid artery without atherosclerotic plaque or hemodynamically significant stenosis. Electronically signed by: Mel Mera MD 06/30/2024 09:36 AM EDT
== END 2024-06-22 09:48 | disposition home or self-care (01) ==
LOC: HO.HMGCX 09:47
PROVIDERS: PCP Internal Medicine; Visit Provider Surgery Vascular Surgery
DX: I65.23 Occlusion and stenosis of bilateral carotid arteries (principal)
CPT/HCPCS: 93880

== ENCOUNTER 2024-07-13 09:45 | Outpatient (AMB) | payer MEDICARE, SELFPAY ==
[2024-07-13 09:58] VITALS: BP 138/88; BMI 27.4
--- NOTE | 2024-07-13 09:58 | MHC.OFFVIS ---
Vital Signs 07/13/24 09:58 07/13/24 10:04 Height 5 ft 1 in Weight 145 lb BMI 27.4 BP 138/88 132/82 Blood Pressure Location Rt brachial Lt brachial Position Sitting Sitting Intake Visit Reasons: 3m follow up s/p Carotid US 06/22/24 Intake Note: Lakesha is a 69 year old female who presents to the office today for a 3 month follow up s/p carotid US 06/22/24. Pt states she is overall feeling well and denies any concerns at this time. 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 She has had no significant complaints. Appears to be doing extremely well. She has had noninvasive carotid testing. [facility] Medical History Arthritis Back pain Thalassanemia Colon cancer screening Normal breast exam Vitamin D deficiency Hyperlipidemia Thrombocytopenia Annual physical exam Surgical History Hx of tonsillectomy Hx of right knee surgery Hx of cataract surgery Hx of section Family History Father No problems noted. Mother Diabetes Hypertension Stroke Social History Household Members: None Housing: House Are you a primary director of home care hospice to a significant other at home: No Do you presently have visiting nurse or other home services: No Alcohol intake: current Alcohol intake frequency: 0-2 drinks per day Patient Tobacco Use Status: Former Tobacco user Years Smoked: 20 years e-Cigarette/Vaping Use: Never Used service: No Current occupational status: retired Cognitive needs: No Hearing needs: No Vision needs: No Review of Systems Const All systems reviewed & are unremarkable except as noted in HPI and below Reports no additional complaints ENT Reports Normal hearing present Card Denies chest pain, Denies chest pain at rest, Denies chest pain with activity and Denies pedal edema Resp Denies cough GI Denies abdominal pain Musc Denies abnormal gait, Denies muscle cramps and Denies radiating pain into limb Skin/Breast Denies skin ulcer and Denies wounds Neuro Reports Normal hearing present and Denies abnormal gait Psych Reports no additional complaints Physical Exam Vital Signs: Last Vital Signs BP 132/82 07/13/24 10:04 BMI result Body Mass Index 27.4 Const General: cooperative, healthy appearing and comfortable Orientation/consciousness: oriented to person, oriented to place and oriented to time HEENT Head: Yes normal to inspection Neck Neck: Yes normal visual inspection Carotids: no bruits Chest Chest palpation & inspection: normal inspection of the chest Resp Effort & Inspection: normal respiratory effort and able to speak in complete sentences Auscultation: clear to auscultation bilaterally, no crackles, no rales, no rhonchi and no wheezes Cardio Rate: regular rate Rhythm: regular rhythm Heart sounds: S1 normal heart sound present and S2 normal heart sound present Bruits: no carotid bruits Peripheral pulses: Peripheral pulses 2+ throughout GI Inspection: Yes normal to inspection Skin Other: Left neck incision well healed Wounds: no wounds Hair: normal Neuro General: oriented to person, oriented to place and oriented to time Cranial nerves: Yes CN's II-XII intact bilaterally and Yes Normal hearing present Cognition (Neuro): normal cognition Motor exam (neuro): 5/5 motor strength present throughout Extrem Other: venous exam: No significant superficial varicosities or spider telangiectasias, minimal edema General: No clubbing, No cyanosis and No edema Psych Appearance: grossly normal Mental Status: mental status grossly normal Speech and movement: Normal speech and movement present Results Reviewed Results Reviewed: Carotid testing 06/22/2024 - within normal limits Assessment & Plan Assessment & Plan (1) Bilateral carotid artery stenosis: Code(s): I65.23 - Occlusion and stenosis of bilateral carotid arteries Category: Medical Plan: In short patient has done well with left carotid body tumor removal. She has had no postoperative issues. Appears to be doing extremely well. Carotid testing was within normal limits. She will follow up with us on an as-needed basis. Thank you for allowing us to assist in her care. Coding Level of Care Code Est Pt Level 4 (08747) Diagnoses Bilateral carotid artery stenosis I65.23
[2024-07-13 10:04] VITALS: BP 132/82
== END 2024-07-13 10:44 | disposition home or self-care (01) ==
PROVIDERS: PCP Internal Medicine; Visit Provider Surgery Vascular Surgery
DX: I65.23 Occlusion and stenosis of bilateral carotid arteries (principal)
CPT/HCPCS: 99214

== ENCOUNTER → 2024-07-13 09:45 | Outpatient (BNVA) | payer MEDICARE, SELFPAY | PROVIDERS: PCP Internal Medicine; Visit Provider Surgery Vascular Surgery | DX: I65.23 Occlusion and stenosis of bilateral carotid arteries (principal) | CPT/HCPCS: 99212 ==

== ENCOUNTER 2024-12-16 09:07 | Outpatient (REF) | payer MEDICARE, SELFPAY ==
--- OUTSIDE RECORDS SUMMARY | 2024-12-16 10:01 | XMS_ITS | Patient Health Record ---
[facility] Address [address] [place] [address] Care Team Providers Care General Production Manager Name Role Phone Sharon Fleming MD Primary Care Provider Unavaila Elvira Figueredo Unavailable [phone] Allergies Allergen (clinical drug ingredient) Drug/Non Drug Allergy documented on EMR Reaction Allergy Type Onset Date Status acetaminophen / oxycodone Percocet Unknown Drug Allergy Active Seasonal IC Unknown Drug Allergy Activ e Reason For Referral No Information Medications Medication SIG (Take, Route, Frequency, Duration) Notes Start Date End Date Status Vitamin B Complex Ac tive Vitamin D3 Active Hair Skin Nails - as directed Orally Active Magnesium Active Ammonium Lactate 12 % 1 application Exte rnally to affected areas of dry skin to feet except for between the toes Twice a day for 30 days Active Probiotic Active Formula 7 The Solution 1 % 1 application Externally Once a day Active Social History Tobacco Use: Social History Observation Description Date Details (start date - stop date) Never Smoker NA - NA Alcohol Screen Question Answer Notes Did you have a drink contain ing alcohol in the past year? Yes How often did you have a dri nk containing alcohol in the past year? 2 to 3 times a week (3 points) Points 3 Interpretation Positive Tobacco use other than smoking: Question Answer Notes Are you an other tobacco user? No Tobacco Control (Standard) Question Answer Notes Tobacco use: Nonsmoker Problems Problem Type SNOMED Code ICD Code Onset Dates Problem Status W/U Status Risk Notes Problem Acquired hammer toe of right foot (9409835552190079) Other hammer toe(s) (acquired), right foot (M20.41) Active confirmed Problem Acquired hallux valgus (72345970) Hallux valgus (acquired), left foot (M20.12) Active confirmed Problem Acquired hammer toe of left foot (7526819618776431) Other hammer toe(s) (acquired), left foot (M20.42) Active confirmed Problem Plantar wart (00028334) Plantar wart (B07.0) Active confirmed Problem Localized, primary osteoarthritis of the ankle and/or foot (400592017) Primary osteoarthrit is, right ankle and foot (M19.071) Active confirmed Problem Acquired hallux valgus (51420739) Hallux valgus (acquired), right foot (M20.11) Active confirmed Vital Signs Blood pressure diastolic 80 mm Hg 12/16/2024 Height 5ft1in in 12/16/2024 Blood pressure systolic 130 mm Hg 12/16/2024 Weight 145 lbs 12/16/2024 BMI 27.39 kg/m2 12/16/2024 Procedures Procedure Date Ordered Date Performed Result Body Sit e 24328-RNGJLSJ NAIL, 6 OR MORE 04/19/2024 N/A 44651-Uwlzugcb Plate 04/19/2024 N/A 00557-PCXYIPY NAIL, 6 OR MORE 08/19/2024 N/A Encounters Encounter Location Date Provider Diagnosis [address] [address] 12/16/2024 Elvira Black Tinea unguium B35.1 ; Xerosis of skin L85.3 ; Pain in right toe(s) M79.674 ; Pain in left toe(s) M79.675 and Ingrown nail L60.[address] [address] 04/19/2024 Elvira Black Tinea unguium B35.1 ; Ingrowing nail L60.0 ; Pain in right toe(s) M79.674 and Pain in left toe(s) M79.[address] [address] 08/19/2024 Elvira Black Tinea unguium B35.1 ; Xerosis of skin L85.3 ; Pain in right toe(s) M79.674 and Pain in left toe(s) M79.[address] [address] 02/10/2024 Elvira Mills Assessments Encounter Date Diagnosis (ICD Code) Assessment Notes Treatment Notes Treatment Clinical Notes Section Notes 04/19/2024 Tinea unguium (ICD-10 - B35.1) 04/19/2024 Ingrowing nail (ICD-10 - L60.0) 08/19/2024 Tinea unguium (ICD-10 - B35.1) 08/19/2024 Xerosis of skin (ICD-10 - L85.3) 12/16/2024 Tinea unguium (ICD-10 - B35.1) 12/16/2024 Xerosis of skin (ICD-10 - L85.3) 08/19/2024 Pain in right toe(s) (ICD-10 - M79.674) 04/19/2024 Pain in right toe(s) (ICD-10 - M79.674) 04/19/2024 Pain in left toe(s) (ICD-10 - M79.675) 08/19/2024 Pain in left toe(s) (ICD-10 - M79.675) 12/16/2024 Pain in right toe(s) (ICD-10 - M79.674) 12/16/2024 Pain in left toe(s) (ICD-10 - M79.675) 12/16/2024 Ingrown nail (ICD-10 - L60.0) Plan Of Treatment Pending Test Test Name Order Date 48333-GPQZWYM NAIL, 6 OR MORE 04/13/2020 37639-JFLFAZX NAIL, 6 OR MORE 07/13/2020 91669-BVGCHLP NAIL, 6 OR MORE 11/20/2020 28901-BPNXENJ NAIL, 6 OR MORE 03/22/2021 38379-YUPVFTZ NAIL, 6 OR MORE 07/23/2021 35321-PPNYRVP NAIL, 6 OR MORE 11/26/2021 99635-MIFHPVN NAIL, 6 OR MORE 03/25/2022 87999-RXCRSBV NAIL, 6 OR MORE 07/22/2022 73602-KMLNBUR NAIL, 6 OR MORE 02/03/2023 55920-RSOVQSN NAIL, 6 OR MORE 08/11/2023 92751-AMYXENS NAIL, 6 OR MORE 04/19/2024 54819-LEPMYBM NAIL, 6 OR MORE 08/19/2024 90659-Enrb Destruction, 1-14 08/11/2023 20808-Jnpiflyl Plate 04/19/2024 83882-Kpujweir Plate 03/25/2022 98793-Lpiyisbq Plate 07/23/2021 75884-Gccsouzw Plate 03/23/2020 09369-Kcvanare Plate 03/22/2021 54836-Icjnjvbq Plate 02/03/2023 06242-Kpztyspf Plate Each Additional 12/2022 68606- Debride <25 sq cm 04/13/2020 Next Appt Details Provider Name:Elvira Mills , 04/18/2025 09:15:00 AM, [address] [facility], [place], [address], Insurance Providers Payer Name Payer Address Payer Phone Subscriber Number Group Number Insured Name Patient Relationship to Insured Coverage Start Date Coverage End Date [facility] 65 Medicare Preferred [address] [place] [address] [phone] [id number] Lakesha Betancourt Self - patient is the insured Medical (General) History Medical History History ICD Code Back,Hip,and Knee pain Cataracts crown on big tooth Back pain Surgical History Surgery Date(Month/Year) cataract-lens implants [place] [facility] [place] from [place]24 Hospitalization History Reason Date(Month/Year) [facility] [place] Severe dehydration 06/23
--- OUTSIDE RECORDS SUMMARY | 2024-12-16 10:01 | XMS_ITS ---
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 Name Role Phone Sharon Fleming MD Primary Care Provider Unavaila ble Black, Elvira Unavailable [phone] Allergies Allergen (clinical drug ingredient) Drug/Non Drug Allergy documented on EMR Reaction Allergy Type Onset Date Status acetaminophen / oxycodone Percocet Unknown Drug Allergy Active Seasonal IC Unknown Drug Allergy Activ e REASON FOR VISIT Pcp-01/22, Painful Nail(s) aggrevated by shoes and causing difficulty standing/walking., Skin problem(s), Ingrown nail(s) Medications Medication SIG (Take, Route, Frequency, Duration) Notes Start Date End Date Status Vitamin B Complex Ac tive Vitamin D3 Active Magnesium Active Ammonium Lactate 12 % 1 application Exte rnally to affected areas of dry skin to feet except for between the toes Twice a day for 30 days Active Probiotic Active Hair Skin Nails - as directed Orally Active Formula 7 The Solution 1 % 1 application Externally Once a day Active Social History Tobacco Use: Social History Observation Description Date Details (start date - stop date) Never Smoker NA - NA Tobacco use other than smoking: Question Answer Notes Are you an other tobacco user? No Tobacco Control (Standard) Question Answer Notes Tobacco use: Nonsmoker Vital Signs Height 5ft1in in 12/16/2024 Weight 145 lbs 12/16/2024 BMI 27.39 kg/m2 12/16/2024 Blood pressure systolic 130 mm Hg 12/17/19 25 Blood pressure diastolic 80 mm Hg 025 Encounters Encounter Location Date Provider Diagnosis [facility] [address] [place] [address] 12/16/2024 Elvira Black Tinea unguium B35.1 ; Xerosis of skin L85.3 ; Pain in right toe(s) M79.674 ; Pain in left toe(s) M79.675 and Ingrown nail L60.0 Assessments Encounter Date Diagnosis (ICD Code) Assessment Notes Treatment Notes Treatment Clinical Notes Section Notes 12/16/2024 Tinea unguium (ICD-10 - B35.1) 12/16/2024 Xerosis of skin (ICD-10 - L85.3) 12/16/2024 Pain in right toe(s) (ICD-10 - M79.674) 12/16/2024 Pain in left toe(s) (ICD-10 - M79.675) 12/16/2024 Ingrown nail (ICD-10 - L60.0) Plan Of Treatment Medication Medication Name Sig Start Date Stop Date Notes Ammonium Lactate 12 % 1 application Exte rnally to affected areas of dry skin to feet except for between the toes Twice a day for 30 days Next Appt Details Follow Up: prn, Reason: Provider Name:Elvira Mills , 04/18/2025 09:15:00 AM, [address] [place] [address], [id number], Procedure Notes * Category Sub-Category Detail Notes Nail Avulsion Procedure A fine sterile e levator was placed between the eponychium, nail fold, and nail plate to separate the the structures. A sterile nail splitter, and/or sterile 316 blade, was then used to longitudinally section the nail along its entire length through the eponychium to the area under the nail fold. The offending portion of each nail was from the nail bed with a rolling action and then removed with a hemostat. No underlying bone was identified. There was minimal bleeding as hemostasis was achieved through use of either a digital tournaquet or the aforementioned local with epinephrine. A bacitracin sterile dressing was applied. Local wound aftercare instructions were discussed and dispensed. The patient was informed of both conservative and future surgical procedures to prevent recurrence - 83969/32 Anesthesia Location Debride Nail 6-10 Nail debridement Due to the cl inical pathology outlined in the exam findings, performance of this nail treatment is medically necessary as its management by an unskilled/untrained nonprofessional would put this patients foot and overall health at risk. Therefore, debridement to affected nail(s), as described in exam ( T5, TA, T2, T3, T1, T7, T8 ), was performed exclusively by the physician of record to reduce/remove overall nail length, girth, thickness, subungual debris, and necrotic tissue, by manual and/or electrical means through the use of a nail nipper and/or dremel-type grinder set up operator surface, to a more viable healthy nail plate or bed tissue 6-10 nails in total. Silver nitrate was used for any petechial bleeding as necessary. Definitive antifungal treatment options, both pharmaceutical and surgical, have been reviewed and discussed with the patient. The patient solely prefers the use of intermittent/as needed professional debridement services for their nail condition and understands the need for additional periodic treatments to maintain effectiveness in symptomatic relief - 79898 Patient chooses to cont, topical For m 7 treatment, Progress Notes * Lakesha BETANCOURTDOB:[birth year] (69 yo F)Acc No.[id number]:12/16/2024 Progress Note Patient:?Lakesha BETANCOURT Provider:?Elvira iMlls DPM :1955???Age:69 Y???Sex:Female D ate:12/16/2024 Address:[address] [place], [place] [id number] Pcp:Sharon Fleming MD Subjective: * Chief Complaints: * ???1. Pcp-01/22. 2. Painful Nail(s) aggrevated by shoes and causing difficulty standing/walking.. 3. Skin problem(s). 4. Ingrown nail(s). * HPI: ???Painful Nails:?Pt States Last PCP Visit:?Date:?01/14/2024 ?Treatments:?Topical Antifungal, Formula 7, , relates adherence to recom tx.?Skin problems:?Nature:?dryness , scaling.?Location:?B/L .?Duration:?, several months.?Course:?, improved, at _100 %.?Treatments:?Topical OTC moisturizing lotion/cream has not relieved condition, medication ( AM Lactin ),, has been successful?.? * ROS:?General/Constitutional:?Nausea?denies, denies.?Vomiting?denies, denies.?Hunger Thirst?denies, denies.?Loss appetite?denies,?, denies,?.?Chills?denies,?, denies,?.?Fatigue?denies, denies.?Fever?denies,, denies,.?Night Sweats?denies, denies.?Unexplained weight loss?denies, denies.?Unexplained weight gain?denies, denies.?Ophthalmologic:?Blurred vision?denies, denies.?Red eye?denies, denies.?HEENTM:?Dentures?denies, denies.?Dizziness?denies, denies.?Glasses/contacts?denies, denies.?Retinopathy?denies, denies.?Blurred/double vision?denies, denies.?TMJ?denies, denies.?Discharge/drainage?denies, denies.?Implants?admits, admits.?Sore throat?denies, denies.?Dental implants?denies, denies.?Hard of hearing ?denies, denies.?Difficulty chewing/swallowing/speaking?denies, denies.?Nose bleeds?denies, denies.?Sore mouth?denies, , denies,?.?Swollen glands?denies, denies.?Respiratory:?On Oxygen?denies, denies.?Pneumonia/pleurisy?denies, denies.?Bronchitis?denies, denies.?Emphysema?denies, denies.?Coughing?denies, denies.?Cough blood?denies, denies.?Shortness of breath?denies, , denies,?.?Wheezing?denies, denies, denies, denies.?Cardiovascular:?Pacemaker?denies, denies.?MVP?denies, denies.?WPW?denies, denies.?CHF?denies, denies.?Heart attack?denies, denies.?Septal defect?denies, denies.?Rapid beat?denies, denies.?Chest pain ?denies, denies.?Atrial Fib.?denies,, denies,.?Murmur/Palpitations?denies, denies.?Gastrointestinal:?Hemorrhoids?denies, denies.?Stomach/Abdominal pain?denies,?, denies,?.?Dark blood stool?denies, denies.?Irritable bowel ?denies, denies.?Constipation?denies, denies.?Diarrhea?denies,?, denies,?.?Vomiting?denies, denies.?Hematology:?Swelling?denies, denies.?Clots?denies, denies.?Varicose Veins?denies, denies.?Bruising?denies, denies.?Bleeding problem?denies, denies.?Genitourinary:?Blood urine?denies,?, denies,?.?Frequent/Painfu/urination/bladder control?denies,?, denies,?.?Kidney stones?denies, denies.?Infection (UTI)?denies, denies.?Nephropathy?denies, denies.?sex trans dis (STD)?denies, denies.?Prostate?denies, denies.?Musculoskeletal:?Hammertoes?denies, denies.?Bunions?denies, denies.?Back Pain?denies, denies.?Muscle Cramps/ Resting?denies, denies.?Muscle cramps / walking?denies, denies.?Generalized aches and pains?denies, denies.?Painful joints?denies, denies.?Swollen joints?denies, denies.?Weakness?denies, denies.?Podiatric:?Comments?See HPI for comments, See HPI for comments.?Integ.:?Watson?denies, denies.?Scars?denies, denies.?Corns/calluses?denies, denies.?Ingrown nails?denies, denies.?Painful nails?denies, denies.?Open Sores?denies, denies.?Itching?denies, denies.?Rashes?denies,, denies,.?Neurologic:?Difficulty sleeping?denies, denies.?Brain disorder?denies, denies.?Numbness?denies, denies.?Balance trouble?denies, denies.?Confusion?denies,, denies,.?Fainting/blackouts?denies, denies.?Headache?denies, denies.?Tingling?denies, denies.?Tremors?denies, denies.? * Medical History:?Back,Hip,an d Knee pain, Cataracts, [place] on big tooth, Back pain. 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 * Hospitalization/Major Diagno stic Procedure:?[facility] ER- Severe dehydration 06/23. * Family History:?Mother: dece ased, diagnosed with Diabetic - NIDDM, Unspecified cerebral artery occlusion with cerebral infarction, Family history of arthritis.?Father: .?Spouse: , heart attack, diagnosed with Unspecified essential hypertension.? * Social History:?Tobacco Use:?Tobacco use other than smoking?Are you an other tobacco user??No ?Tobacco Control (Standard)?Tobacco use:?Nonsmoker ???Miscellaneous:?Caffeine: yes, frequency:, 2-3 cups per day. ?Children: yes, 1. ?Exercise: yes, walking. ?Marital status: . ?Occupation: retired- Purchasing/accounting/chef assistant. * Medications:?Taking Magnesiu m , Taking Hair Skin Nails - Capsule as directed Orally , Taking Formula 7 The Solution 1 % Solution 1 application Externally Once a day , Taking Probiotic , Taking Vitamin D3 , Taking Vitamin B Complex , Taking Ammonium Lactate 12 % Cream 1 application Externally to affected areas of dry skin to feet except for between the toes Twice a day , Medication List reviewed and reconciled with the patient * Allergies:?Percocet, Seasona l IC. Objective: * Vitals:?Ht: 5ft1in, Wt:145, BMI:27.39, Shoe size: 6.5-7, BP:130/80mm Hg, Ht-cm: 154.94 cm, Wt-k.77 kg. * Examination: ???General Examination: ?GENERAL APPEARANCE:?Reveals a pleasant, alert, well nourished, well- developed, well hydrated individual, who demonstrates proper attention to hygiene/body habitus, and is in no acute distress, Pt serves as own historian for office visit today.?ORIENTED:?person, place, and time.?Ingrown Nail: ?INSPECTION:?Reveals nail incurvation, pain on palpation, groove hypertrophy, Bilateral nail borders, T1, T6.?Nails: ?NAILS are:?elongated,overgrown,dystrophic,greater than 3mm thick,discolored and friable with crumbly malodorous subungual debris, with pain on palpation,, T5, TA, T2, T3, T1, T7, T8.?Vascular: ?DP PULSES (B):?2/4, B/L.?PT PULSES (B):?2/4, B/L.?CAPILLARY FILL TIME:?3 secs. per digit, b/l.?TROPHIC CONDITION-TEXTURE/ELASTICITY/TURGOR/HAIR GROWTH (B):?absent.?TEMPERTURE GRADIENT (C):?warm to cool, proximal to distal.?EDEMA (C):?no edema.?Dermatologic: ?SKIN FINDINGS:?Skin shows sign(s) of, dryness, scaling, in a stocking fashion, no fissure(s) present, B/L.? Assessment: * Assessment: 1.?Tinea unguium - B35.1???2 .?Xerosis of skin - L85.3 (Primary)???Specify :Acute problem, Uncomplicated (3),Rx Management (4)???3.?Pain in right toe(s) - M79.674???4.?Pain in left toe(s) - M79.675???5.?Ingrown nail - L60.0??? Plan: * Treatment: * Procedures:?Debride Nail 6-10:?Nail debridement?Due to the clinical pathology outlined in the exam findings, performance of this nail treatment is medically necessary as its management by an unskilled/untrained nonprofessional would put this patients foot and overall health at risk. Therefore, debridement to affected nail(s), as described in exam ( T5, TA, T2, T3, T1, T7, T8 ), was performed exclusively by the physician of record to reduce/remove overall nail length, girth, thickness, subungual debris, and necrotic tissue, by manual and/or electrical means through the use of a nail nipper and/or dremel-type grinder set up operator surface, to a more viable healthy nail plate or bed tissue 6-10 nails in total. Silver nitrate was used for any petechial bleeding as necessary. Definitive antifungal treatment options, both pharmaceutical and surgical, have been reviewed and discussed with the patient. The patient solely prefers the use of intermittent/as needed professional debridement services for their nail condition and understands the need for additional periodic treatments to maintain effectiveness in symptomatic relief - 10275.?Patient chooses ?to cont, topical Form 7 treatment,?.?Nail Avulsion:?Location? .?Anesthesia? .?Procedure?A fine sterile elevator was placed between the eponychium, nail fold, and nail plate to separate the the structures. A sterile nail splitter, and/or sterile 316 blade, was then used to longitudinally section the nail along its entire length through the eponychium to the area under the nail fold. The offending portion of each nail was from the nail bed with a rolling action and then removed with a hemostat. No underlying bone was identified. There was minimal bleeding as hemostasis was achieved through use of either a digital tournaquet or the aforementioned local with epinephrine. A bacitracin sterile dressing was applied. Local wound aftercare instructions were discussed and dispensed. The patient was informed of both conservative and future surgical procedures to prevent recurrence - 04421/32.? * Procedure Codes:?50240 DEBRI DE NAIL, 6 OR MORE, Modifiers: XS , 16446 Avulsion Plate, Modifiers: XS , 53754 Avulsion Plate Each Additional, Modifiers: XS * Follow Up:?prn * Images: * The named appointment provid er may or may not be the originator of this progress note, and it is not deemed complete until electronically signed by the appointment provider. Sign off status: Pending * Provider:?Elvira Mills DPM Date:?2024 Generated for Roge armendariz/Eugenie/María on:?12/16/2024 10:01 AM EDT History and Physical Notes * HPI (History of Present Illness) Category Sub-Category Detail Notes Category Not es Painful Nails Treatments: Topical Antifung al, Formula 7, , relates adherence to recom tx Pt States Last PCP Visit: Date:: 01/14/2024 Skin problems Nature: dryness , scaling Location: B/L Duration: , several months Course: , improved, at _100 % Aggravated by: Treatments: Topical OTC moisturi zing lotion/cream has not relieved condition, medication ( AM Lactin ),, has been successful Examination Category Sub-Category Detail Notes Category Not es Ingrown Nail INSPECTION: Reveals nail inc urvation, pain on palpation, groove hypertrophy, Bilateral nail borders, T1, T6 Dermatologic SKIN FINDINGS: Skin shows sign( s) of, dryness, scaling, in a stocking fashion, no fissure(s) present, B/L VERRUCA: General Examination GENERAL APPEARANCE: Reveals a pleasant, alert, well nourished, well-developed, well hydrated individual, who demonstrates proper attention to hygiene/body habitus, and is in no acute distress, Pt serves as own historian for office visit today ORIENTED: person, place, and t blayne Vascular DP PULSES (B): 2/4, B/L PT PULSES (B): 2/4, B/L CAPILLARY FILL TIME: 3 secs. per digit, b/l TEMPERTURE GRADIENT (C): warm to cool, p roximal to distal TROPHIC CONDITION-TEXTURE/EL ASTICITY/TURGOR/HAIR GROWTH (B): absent EDEMA (C): no edema Nails NAILS are: elongated,overgr own,dystrophic,greater than 3mm thick,discolored and friable with crumbly malodorous subungual debris, with pain on palpation,, T5, TA, T2, T3, T1, T7, T8
--- OUTSIDE RECORDS SUMMARY | 2024-12-16 10:01 | XMS_ITS ---
[facility] Address [address] [place] [address] Care Team Providers Care Marine Underwriter Name Role Phone Sharon Fleming MD Primary Care Provider Unavaila ble Black, Elvira Unavailable [phone] Allergies Allergen (clinical drug ingredient) Drug/Non Drug Allergy documented on EMR Reaction Allergy Type Onset Date Status acetaminophen / oxycodone Percocet Unknown Drug Allergy Active Seasonal IC Unknown Drug Allergy Activ e REASON FOR VISIT Painful Nail(s) aggrevated by shoes and causing difficulty standing/walking., Skin problem(s) Medications Medication SIG (Take, Route, Frequency, Duration) Notes Start Date End Date Status Magnesium Active Ammonium Lactate 12 % 1 application Exte rnally to affected areas of dry skin to feet except for between the toes Twice a day for 30 days Active Formula 7 The Solution 1 % 1 application Externally Once a day Active Hair Skin Nails - as directed Orally Active Vitamin B Complex Ac tive Probiotic Active Vitamin D3 Active Social History Tobacco Use: Social History Observation Description Date Details (start date - stop date) Former Smoker NA - NA Tobacco Use/Smoking Question Answer Notes Are you a: former smoker Additional Findings: Tobacco Non-User Current no n-smoker Tobacco use other than smoking: Question Answer Notes Are you an other tobacco user? No Vital Signs Height 5ft1in in 08/19/2024 Weight 140 lbs 08/19/2024 BMI 26.45 kg/m2 08/19/2024 Blood pressure systolic 132 mm Hg 08/19/20 24 Blood pressure diastolic 78 mm Hg 024 Procedures Procedure Date Ordered Date Performed Result Body Sit e 88426-MJPYLSV NAIL, 6 OR MORE 08/19/2024 N/A Encounters Encounter Location Date Provider Diagnosis [facility] [address] [place] [address] 08/19/2024 Elvira Mills Tinea unguium B35.1 ; Xerosis of skin L85.3 ; Pain in right toe(s) M79.674 and Pain in left toe(s) M79.675 Assessments Encounter Date Diagnosis (ICD Code) Assessment Notes Treatment Notes Treatment Clinical Notes Section Notes 08/19/2024 Tinea unguium (ICD-10 - B35.1) 08/19/2024 Xerosis of skin (ICD-10 - L85.3) 08/19/2024 Pain in right toe(s) (ICD-10 - M79.674) 08/19/2024 Pain in left toe(s) (ICD-10 - M79.675) Plan Of Treatment Medication Medication Name Sig Start Date Stop Date Notes Ammonium Lactate 12 % 1 application Exte rnally to affected areas of dry skin to feet except for between the toes Twice a day for 30 days Pending Test Test Name Order Date 14073-NTFHZCV NAIL, 6 OR MORE 08/19/2024 Next Appt Details Follow Up: prn, Reason: Provider Name:Elvira Mills , 04/18/2025 09:15:00 AM, [address] [place] [address], [id number], Procedure Notes * Category Sub-Category Detail Notes Debride Nail 6-10 Nail debridement Due to [...] use of a nail nipper and/or dremel-type pulp grinder and blender, to a more viable healthy nail plate [...] to maintain effectiveness in symptomatic relief - 90733 Patient chooses to cont, topical For m 7 treatment, Progress Notes * Lakesha BETANCOURTDOB:[birth year] (69 yo F)Acc No.[id number]:08/19/2024 Progress Note Patient:?Lakesha BETANCOURT Provider:?Elvira Mills DPM :1955???Age:69 Y???Sex:Female D ate:08/19/2024 Address:[address] [place] [address], [place] [facility] Pcp:Sharon Fleming MD Subjective: * Chief Complaints: * ???Painful Nail(s) aggrevate d by shoes and causing difficulty standing/walking.Skin problem(s) * HPI: ???Painful Nails:?Pt States Last PCP Visit:?Date:?01/14/2024 ?Treatments:?Topical Antifungal, Formula 7, , relates adherence to recom tx.?Skin problems:?Nature:?dryness , scaling.?Location:?B/L .?Duration:?several days.?Course:?worse.? * ROS:?General/Constitutional:?Nausea?denies.?Vomiting?denies.?Hunger Thirst?denies.?Loss appetite?denies,?.?Chills?denies,?.?Fatigue?denies.?Fever?denies,.?Night Sweats?denies.?Unexplained weight loss?denies.?Unexplained weight gain?denies.?Ophthalmologic:?Blurred vision?denies.?Red eye?denies.?HEENTM:?Dentures?denies.?Dizziness?denies.?Glasses/contacts?denies.?Retinopathy?de nies.?Blurred/double vision?denies.?TMJ?denies.?Discharge/drainage?denies.?Implants?admits.?Sore throat?denies.?Dental implants?denies.?Hard of hearing ?denies.?Difficulty chewing/swallowing/speaking?denies.?Nose bleeds?denies.?Sore mouth?denies,?.?Swollen glands?denies.?Respiratory:?On Oxygen?denies.?Pneumonia/pleurisy?denies.?Bronchitis?denies.?Emphysema?denies.?C oughing?denies.?Cough blood?denies.?Shortness of breath?denies,?.?Wheezing?denies, denies.?Cardiovascular:?Pacemaker?denies.?MVP?denies.?WPW?denies.?CHF?denies.?Heart attack?denies.?Septal defect?denies.?Rapid beat?denies.?Chest pain ?denies.?Atrial Fib.?denies,.?Murmur/Palpitations?denies.?Gastrointestinal:?Hemorrhoids?denies.?Stomach/Abdominal pain?denies,?.?Dark blood stool?denies.?Irritable bowel ?denies.?Constipation?denies.?Diarrhea?denies,?.?Vomiting?denies.?Hematology:?Swelling?denies.?Clots?denies.?Varicose Veins?denies.?Bruising?denies.?Bleeding problem?denies.?Genitourinary:?Blood urine?denies,?.?Frequent/Painfu/urination/bladder control?denies,?.?Kidney stones?denies.?Infection (UTI)?denies.?Nephropathy?denies.?sex trans dis (STD)?denies.?Prostate?denies.?Musculoskeletal:?Hammertoes?denies.?Bunions?denies.?Back Pain?denies.?Muscle Cramps/ Resting?denies.?Muscle cramps / walking?denies.?Generalized aches and pains?denies.?Painful joints?denies.?Swollen joints?denies.?Weakness?denies.?Podiatric:?Comments?See HPI for comments.?Integ.:?Watson?denies.?Scars?denies.?Corns/calluses?denies.?Ingrown nails?denies.?Painful nails?denies.?Open Sores?denies.?Itching?denies.?Rashes?denies,.?Neurologic:?Difficulty sleeping?denies.?Brain disorder?denies.?Numbness?denies.?Balance trouble?denies.?Confusion?denies,.?Fainting/blackouts?denies.?Headache?denies.?T ingling?denies.?Tremors?denies.? * Medical History:? * Surgical History:?cataract-l ens [place] [facility] [place] * Hospitalization/Major Diagno stic Procedure:[place] Severe dehydration 06/23 * Family History:?Mother: dece ased, diagnosed with Diabetic - NIDDM, Unspecified cerebral artery occlusion with cerebral infarction, Family history of arthritis.?Father: .?Spouse: , heart attack, diagnosed with Unspecified essential hypertension.? * Social History:?Tobacco Use:?Tobacco Use/Smoking?Are you a:?former smoker ?Additional Findings: Tobacco Non-User?Current non-smoker ?Tobacco use other than smoking?Are you an other tobacco user??No * Medications:?TakingMagnesium Hair Skin Nails - Capsule as directed Orally Formula 7 The Solution 1 % Solution 1 application Externally Once a day Probiotic Vitamin D3 Vitamin B Complex Medication List reviewed and reconciled with the patientTaking Magnesium Taking Hair Skin Nails - Capsule as directed Orally Taking Formula 7 The Solution 1 % Solution 1 application Externally Once a day Taking Probiotic Taking Vitamin D3 Taking Vitamin B Complex Medication List reviewed and reconciled with the patient * Allergies:?PercocetSeasonal ICyes[Allergies Verified] Objective: * Vitals:?Ht: 5ft1in, Wt:140, BMI:26.45, Shoe size: 6.5-7, BP:132/78mm Hg, Ht-cm: 154.94 cm, Wt-k.5 kg. * Examination: ???General Examination: ?GENERAL APPEARANCE:?Reveals a pleasant, alert, well nourished, well- developed, well hydrated individual, who demonstrates proper attention to hygiene/body habitus, and is in no acute distress, Pt serves as own historian for office visit today.?ORIENTED:?person, place, and time.?Nails: ?NAILS are:?elongated,overgrown,dystrophic,greater than 3mm thick,discolored and friable [...] toe(s) - M79.674???4.?Pain in left toe(s) - M79.675??? Plan: * Treatment: 2.?Tinea unguium?Procedure: 43745-LTCWJQY NAIL, 6 OR MORE * Procedures:?Debride Nail 6-10:?Nail debridement?Due to the [...] use of a nail nipper and/or dremel-type pulp grinder and blender, to a more viable healthy nail plate [...] to maintain effectiveness in symptomatic relief - 09960.?Patient chooses ?to cont, topical Form 7 treatment,?.? * Procedure Codes:?10275 DEBRI DE NAIL, 6 OR MORE, Modifiers: XS * Preventive Medicine:? ??Counseling:?Discussion:?-13: Office or other outpatient visit for the evaluation and management of an established patient, which required a medically appropriate history and/or examination and LOW level of DECISION MAKING for: 1 STABLE ACUTE UNCOMPLICATED PROBLEM, 2 OR MORE MINOR PROBLEMS, OR 1 STABLE CHRONIC PROBLEM, THAT POSE(S) A LOW RISK FOR MORBIDITY/MORTALITY. The visit on the day of the encounter encompassed interpreting the data and educating the patient as to the nature of their condition, treatment options available according to their individual PMH, meds, allergies, and overall health/living conditions, as well as any potential risks or complications that may occur from a failure to adhere to, and participate in, the recommended course of therapy. The discussion included a complete verbal, and/or written explanation of the examination results, any x-rays taken, the proposed diagnosis, and outline of the treatment plan. A schedule for future care needs was also explained. The patient verbalized an understanding of the instructions at this time and agreed to be an active participant in their treatment. If the patient should think of any questions or concerns after the visit, I have encouraged the patient to call the office.?Xerosis:?The patient was counseled on the diagnosis, potential etiologies, and treatment options for their skin condition. We discussed the risks and benefits of each option from performing no treatment, to utilizing OTC topical skin creams/ointments, to utilizing prescription topical creams/ointments, to utilizing customized compounded topical medications and use of nocturnal occlusion with any/all previously detailed therapies. We discussed the advantages and disadvantages of each possible treatment and importance for adherence to all the recommended therapies for optimum success and avoid potential complications such as open sore/infection/possible hospitalization. We discussed the potential effectiveness of each topical preparation as well as each ones possible side effects and/or patient medication interactions. Patient questions re: use, dosage, successful outcomes, and application consistency were reviewed and the patient verbalized that all answers were clearly understood. The patient has decided to apply Rx skin creams to their feet save the interspaces while paying special attention to the heels. Such was sent to their pharmacy at the time of visit.? * Follow Up:?prn * Images: * Sign off status: Completed true * Provider:?Elvira Mills DPM Date:?2023 Generated for Roge armendariz/Eugenie/María on:?12/16/2024 10:00 AM EDT History and Physical Notes * HPI (History of Present Illness) Category Sub-Category Detail Notes Category Not es Painful Nails Treatments: Topical Antifung al, Formula 7, , relates adherence to recom tx Pt States Last PCP Visit: Date:: 01/14/2024 Skin problems Nature: dryness , scaling Location: B/L Duration: several days Course: worse Examination Category Sub-Category Detail Notes Category Not es Ingrown Nail INSPECTION: Dermatologic SKIN FINDINGS: Skin shows sign( s) [...]
--- OUTSIDE RECORDS SUMMARY | 2024-12-16 10:01 | XMS_ITS ---
[facility] Address [address] [place] [address] Care Team Providers Care Health Type Technician Name Role Phone Sharon Fleming MD Primary Care Provider Unavaila ble Gene Elvira Unavailable [phone] Allergies Allergen (clinical drug ingredient) Drug/Non Drug Allergy documented on EMR Reaction Allergy Type Onset Date Status acetaminophen / oxycodone Percocet Unknown Drug Allergy Active Seasonal IC Unknown Drug Allergy Activ e REASON FOR VISIT Painful Nail(s) aggrevated by shoes and causing difficulty standing/walking., Ingrown nail(s) Medications Medication SIG (Take, Route, Frequency, Duration) Notes Start Date End Date Status Probiotic Active Vitamin D3 Active Vitamin B Complex Ac tive Hair Skin Nails - as directed Orally Active Formula 7 The Solution 1 % 1 application Externally Once a day Active Magnesium Active Social History Tobacco Use: Social History Observation Description Date Details (start date - stop date) Former Smoker NA - NA Tobacco Use/Smoking Question Answer Notes Are you a: former smoker Additional Findings: Tobacco Non-User Current no n-smoker Tobacco use other than smoking: Question Answer Notes Are you an other tobacco user? No Vital Signs Height 5ft1in in 04/19/2024 Weight 145 lbs 04/19/2024 BMI 27.39 kg/m2 04/19/2024 Blood pressure systolic 130 mm Hg 04/19/20 24 Blood pressure diastolic 70 mm Hg 024 Procedures Procedure Date Ordered Date Performed Result Body Sit e 98612-IWKUTBE NAIL, 6 OR MORE 04/19/2024 N/A 73729-Dpcpsqdb Plate 04/19/2024 N/A Encounters Encounter Location Date Provider Diagnosis [facility] [address] [place] [address] 04/19/2024 Elvira Mills Tinea unguium B35.1 ; Ingrowing nail L60.0 ; Pain in right toe(s) M79.674 and Pain in left toe(s) M79.675 Assessments Encounter Date Diagnosis (ICD Code) Assessment Notes Treatment Notes Treatment Clinical Notes Section Notes 04/19/2024 Tinea unguium (ICD-10 - B35.1) 04/19/2024 Ingrowing nail (ICD-10 - L60.0) 04/19/2024 Pain in right toe(s) (ICD-10 - M79.674) 04/19/2024 Pain in left toe(s) (ICD-10 - M79.675) Plan Of Treatment Pending Test Test Name Order Date 81736-OUKUSGY NAIL, 6 OR MORE 04/19/2024 33488-Gbwqukff Plate 04/19/2024 Next Appt Details Follow Up: 2 Weeks,prn, Reas on: Provider Name:Elvira Mills , 04/18/2025 09:15:00 AM, [address] [place], [address], Procedure Notes * Category Sub-Category Detail Notes [...] the nail fold. The offending portion of nail was from the nail bed with a rolling action and then removed with a hemostat. No underlying bone was identified. There was minimal bleeding as hemostasis was achieved through the temporary use of either a digital tournaquet or the aforementioned local with epinephrine. A bacitracin sterile dressing was applied. Local wound aftercare instructions were discussed and dispensed. The patient was informed of both conservative and future surgical procedures to prevent recurrence. Tylenol or Motrin was recommended for pain or discomfort (14450) , Pt DEFERS matricectomy Anesthesia was accomplished TOP ICALLY with Lidocaine Hydrochloride Jelly 2 percent Location Bilateral nail borde r , T5 Debride Nail 6-10 Nail debridement Nail debridem ent performed extensively to reduce/remove overall nail length and girth, subungual debris, and necrotic tissue, by manual and electrical means with use of a nail nipper and/or dremel, to more viable healthy nail plate or bed tissue 6-10. Silver nitrate used for any petechial bleeding as necessary. Patient chooses, to STILL, continue use of a topical antifungal(98587) Progress Notes * Lakesha BETANCOURTDOB:[birth year] (68 yo F)Acc No.[id number]:04/19/2024 Progress Note Patient:?Lakesha Betancourt Provider:?Elvira Mills DPM :1955???Age:68 Y???Sex:Female D ate:04/19/2024 Address:[address] [place], [place] [id number] Pcp:Sharon Fleming MD Subjective: * Chief Complaints: * ???Painful Nail(s) aggrevate d by shoes and causing difficulty standing/walking.Ingrown nail(s) * HPI: ???Painful Nails:?Pt States Last PCP Visit:?Date:?01/14/2024 ?Treatments:?Topical Antifungal, Formula 7, relates adherence to recom tx.? * Medical History:? * Surgical History:?cataract-l ens implants [facility] [place] removal from neck 01/2024 * Hospitalization/Major Diagno stic Procedure:?[facility] [place]- Severe dehydration 06/23 * Family History:?Mother: dece ased, diagnosed with Unspecified cerebral artery occlusion with cerebral infarction, Family history of arthritis, Diabetic - NIDDM.?Father: .?Spouse: , heart attack, diagnosed with Unspecified essential hypertension.? * Social History:?Tobacco Use:?Tobacco Use/Smoking?Are you a:?former smoker ?Additional Findings: Tobacco Non-User?Current non-smoker ?Tobacco use other than smoking?Are you an other tobacco user??No ???Miscellaneous:?Caffeine: yes, frequency:, 2-3 cups per day. ?Children: yes, 1. ?Exercise: yes, walking. ?Marital status: . 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 * Medications:?TakingMagnesium Hair Skin Nails - Capsule as directed Orally Formula 7 The Solution 1 % Solution 1 application Externally Once a dayProbiotic Vitamin D3 Vitamin B Complex Medication List reviewed and reconciled with the patientTaking Magnesium Taking Hair Skin Nails - Capsule as directed Orally Taking Formula 7 The Solution 1 % Solution 1 application Externally Once a dayTaking Probiotic Taking Vitamin D3 Taking Vitamin B Complex Medication List reviewed and reconciled with the patient * Allergies:?PercocetSeasonal ICyes[Allergies Verified] Objective: * Vitals:?Ht: 5ft1in, Wt:145, BMI:27.39, Shoe size: 6.5-7, BP:130/70 mm Hg, Ht-cm: 154.94 cm, Wt-k.77 kg. * Examination: ???Nails: ?NAILS are:?elongated,overgrown,dystrophic,greater than 3mm thick,discolored and friable with crumbly malodorous subungual debris, with pain on palpation,, TA, T2, T3, T1, T7, T8.?Ingrown Nail: ?INSPECTION:?Reveals nail incurvation, pain on palpation, groove hypertrophy , groove ischemia, Bilateral nail borders , , T5.?Vascular: ?DP PULSES:?2/4, B/L.?PT PULSES:?2/4, B/L.?CAPILLARY FILL TIME:?3 secs. per digit, b/l.?SKIN TEMPERTURE GRADIENT OF THE LOWER EXTERMITIES:?warm to cool, proximal to distal.?HAIR GROWTH/TEXTURE/ELASTICITY/TURGOR:?absent.?EDEMA:?no edema.? Assessment: * Assessment: 1.?Tinea unguium - B35.1?2.? Ingrowing nail - L60.0 (Primary), Acute problem, Uncomplicated (3)?3.?Pain in right toe(s) - M79.674?4.?Pain in left toe(s) - M79.675? Plan: * Treatment: 2.?Tinea unguium?Procedure: 28214-LGFNLZQ NAIL, 6 OR MORE * Procedures:?Debride Nail 6-10:?Nail debridement?Nail debridement performed extensively to reduce/remove overall nail length and girth, subungual debris, and necrotic tissue, by manual and electrical means with use of a nail nipper and/or dremel, to more viable healthy nail plate or bed tissue 6-10. Silver nitrate used for any petechial bleeding as necessary. Patient chooses, to STILL, continue use of a topical antifungal(93005).?Nail Avulsion:?Location?Bilateral nail border , T5.?Anesthesia?was accomplished TOPICALLY with Lidocaine Hydrochloride Jelly 2 percent.?Procedure?A fine sterile elevator was placed between the eponychium, nail fold, and nail plate to separate the the structures. A sterile nail splitter, and/or sterile 316 blade, was then used to longitudinally section the nail along its entire length through the eponychium to the area under the nail fold. The offending portion of nail was from the nail bed with a rolling action and then removed with a hemostat. No underlying bone was identified. There was minimal bleeding as hemostasis was achieved through the temporary use of either a digital tournaquet or the aforementioned local with epinephrine. A bacitracin sterile dressing was applied. Local wound aftercare instructions were discussed and dispensed. The patient was informed of both conservative and future surgical procedures to prevent recurrence. Tylenol or Motrin was recommended for pain or discomfort (61136) , Pt DEFERS matricectomy.? * Procedure Codes:?62184 DEBRI DE NAIL, 6 OR MORE, Modifiers: XS 15163 Avulsion Plate, Modifiers: T5 * Follow Up:?2 Weeks,prn * Images: * Sign off status: Completed true * Provider:Mildred Mills DPM Date:?2023 Generated for Roge armendariz/Eugenie/María on:?12/16/2024 10:01 AM EDT History and Physical Notes * HPI (History of Present Illness) Category Sub-Category Detail Notes Category Not es Painful Nails Treatments: Topical Antifung al, Formula 7, relates adherence to recom tx Pt States Last PCP Visit: Date:: 01/14/2024 Examination Category Sub-Category Detail Notes Category Not es Ingrown Nail INSPECTION: Reveals nail inc urvation, pain on palpation, groove hypertrophy , groove ischemia, Bilateral nail borders , , T5 Dermatologic VERRUCA: Vascular DP PULSES (B): 2/4, B/L PT PULSES (B): 2/4, B/L CAPILLARY FILL TIME: 3 secs. per digit, b/l TEMPERTURE GRADIENT (C): warm to cool, p roximal to distal TROPHIC CONDITION-TEXTURE/EL ASTICITY/TURGOR/HAIR GROWTH (B): absent EDEMA (C): no edema Nails NAILS are: elongated,overgr own,dystrophic,greater than 3mm thick,discolored and friable with crumbly malodorous subungual debris, with pain on palpation,, TA, T2, T3, T1, T7, T8
[2024-12-16 10:16] LABS: Basophils Percent Auto 0.6 % (0-2); Eosinophils Absolute Auto 0.1 X10*3/uL (0.0-0.4); Hematocrit 42.7 % (37.0-47.0); Hemoglobin 13.2 g/dl (12.0-16.0); Imm Gran Abs Auto 0.01 X10*3/uL (0.00-0.03); Imm Gran Pct Auto 0.2 % (0.0-0.4); Lymphocytes Percent Auto 41.9 % (20-40); MANUAL DIFF FLAG SCAN; Mean Corpuscular HGB Conc 30.9 g/dl (31.0-35.0); Mean Corpuscular Hemoglobin 20.3 pg (27.0-33.0); Mean Corpuscular Volume 65.6 fL (80.0-98.0); Monocytes Absolute Auto 0.4 X10*3/uL (0.1-1.2); Monocytes Percent Auto 8.7 % (2-11); Neutrophils Absolute Auto 2.3 x10*3/uL (2.0-8.3); Neutrophils Percent Auto 47.6 % (45-73); PLT CLUMP 1; Red Blood Count 6.51 X10*6/uL (4.20-5.50); Red Cell Distribution Width 17.2 % (11.0-16.0); SCAN SMEAR FLAG 1
[2024-12-16 10:17] LABS: White Blood Count 4.8 X10*3/uL (4.8-10.8)
[2024-12-16 10:37] LABS: Platelet Count 197 X10*3/uL (160-400)
[2024-12-16 10:40] LABS: SLIDE REVIEW VERIFIED
[2024-12-16 12:02] LABS: Anion Gap 11 (12-20)
[2024-12-16 12:05] LABS: Alanine Aminotransferase 21 U/L (0-31); Albumin Level 4.5 g/dL (3.5-5.0); Aspartate Amino Transferase 29 U/L (5-31); Bilirubin Total 0.4 mg/dL (0.0-1.0); Blood Urea Nitrogen 18 mg/dL (9-16); Calcium 9.7 mg/dL (8.4-10.2); Carbon Dioxide 28 mmol/L (22-29); Chloride 105 mmol/L (96-108); Cholesterol 260 mg/dL (<200); Estimated Glomerular Filt Rate > 60; Glucose Fasting 103 mg/dL (60-99); HDL Cholesterol 81 mg/dL (>40); LDL Cholesterol Calculated 162 mg/dL (<100); Potassium 4.3 mmol/L (3.3-5.1); Sodium 140 mmol/L (135-145); TSH reflex Free T4 1.31 uIU/mL (0.32-4.0); Total Protein 7.3 g/dL (6.5-8.0); Triglycerides 88 mg/dL (<150); Vitamin D 25-OH Total 27.9 ng/mL (>30)
[2024-12-16 12:10] LABS: Alkaline Phosphatase 89 U/L (39-117)
== END 2024-12-16 09:08 | disposition home or self-care (01) ==
LOC: HO.HMGCLDS 09:07
PROVIDERS: PCP Internal Medicine; Visit Provider Internal Medicine
DX: Z00.00 Encounter for general adult medical examination without abnormal findings (principal); E78.5 Hyperlipidemia, unspecified; E55.9 Vitamin D deficiency, unspecified
CPT/HCPCS: 36415; 80053; 80061; 82306; 84443; 85025

== ENCOUNTER 2025-01-27 08:14 | Outpatient (AMB) | payer MEDICARE, SELFPAY ==
[2025-01-27 08:16] VITALS: BP 132/76; PULSE 69; RESP 18; TEMP 36.6; O2SAT 99; BMI 28.9
--- NOTE | 2025-01-27 08:16 | A.OFFPC_ITS ---
Vital Signs 01/27/25 08:16 Height 5 ft 1 in Weight 153 lb BMI 28.9 BP 132/76 Blood Pressure Location Lt brachial Position Sitting Respiration 18 Pulse 69 Pulse Source Pulse Oximeter Temp 97.9 F Temp Source Oral Pulse Oximetry (%) 99 Oxygen Delivery Method Room Air Intake Visit Reasons: PE Intake Note: Pt is here today for PE. Allergies acetaminophen [Percocet] Adverse Reaction (Unknown, Verified 01/27/25 08:19) nausea oxycodone [Percocet] Adverse Reaction (Unknown, Verified 01/27/25 08:19) nausea Medication List - Last Reconciled 01/27/25 by Sharon Fleming MD cholecalciferol (vitamin D3) 250 mcg PO DAILY lactobacillus combination no.4 (Probiotic) 3,000 mmu cells PO DAILY magnesium 200 mg PO BEDTIME vitamin B complex 1 tab PO DAILY Tobacco use date assessed: 01/27/25 Fall risk assessment: No Falls in past year Last assessed Fall Risk: 01/27/25 Dental Screening Dental Screen Date: 01/27/25 Did you have a dental visit in the last 12 months?: Yes Did you have a dental problem in the last 6 months where you did not have access to dental care?: No Was dental information given to patient?: Patient has dentist HPI PE HPI Details Patient presents for physical PFSH Medical History (Updated 01/27/25 @ 17:29 by Sharon Fleming MD) Multiple thyroid nodules Enlarged thyroid Arthritis Back pain Thalassanemia Colon cancer screening Normal breast exam Vitamin D deficiency Hyperlipidemia Thrombocytopenia Annual physical exam Surgical History Hx of tonsillectomy Hx of right knee surgery Hx of cataract surgery Hx of section Family History Father No problems noted. Mother Diabetes Hypertension Stroke Social History Household Members: None Housing: House Are you a primary career specialist to a significant other at home: No Do you presently have visiting nurse or other home services: No Alcohol intake: current Alcohol intake frequency: 0-2 drinks per day Patient Tobacco Use Status: Former Tobacco user Years Smoked: 20 years e-Cigarette/Vaping Use: Never Used service: No Current occupational status: retired Cognitive needs: No Hearing needs: No Vision needs: No Questionnaire PHQ-9 Over the last 2 weeks, how often have you been bothered by any of the following problems? 1. Little interest or pleasure in doing things: not at all 2. Feeling down, depressed, or hopeless: not at all 3. Trouble falling or staying asleep, or sleeping too much: not at all 4. Feeling tired or having little energy: not at all 5. Poor appetite or overeating: not at all 6. Feeling bad about yourself - or that you are a failure or have let yourself or your family down: not at all 7. Trouble concentrating on things, such as reading the newspaper or watching television: not at all 8. Moving or speaking so slowly that other people could have noticed. Or the opposite - being so fidgety or restless that you have been moving around a lot more than usual: not at all 9. Thoughts that you would be better off or of hurting yourself in some way: not at all Total score: 0 Depression Screening Interpretation: Negative Depression Screening Done: Yes 72754 - PHQ-9 Billing: Yes Source: Developed by Drs. Sang Rhoades, Jackie Bright, Volodymyr Izaguirre and colleagues, with an educational nataliia from [employer]. Thrive Questionnaire Date Thrive assessed: 01/27/25 I am a: Patient What is your living situation today?: I have a steady place to live Within the past 12 months, did the food you bought not last and you didn't have the money to get more?: Never true Within the past 12 months, did you worry whether your food would run out before you got money to buy more?: Never true Do you have trouble paying for medicines?: No Do you have trouble getting transportation to medical appointments?: No Do you have trouble paying your heating and electricity bill?: No Do you have trouble taking care of your child, family member or friend?: No Do you have trouble with day-to-day activities such as bathing, preparing meals, shopping, managing finances, etc.?: No Are you currently unemployed and looking for a job?: No Are you interested in more education?: No Please select the resources that you would like help with: None THRIVE Score: 0 AUDIT C Alcohol Use Questionnaire (AUDIT-C) 1. How often do you have a drink containing alcohol?: Monthly or less 2. How many drinks containing alcohol do you have on a typical day when you are drinking?: 1 or 2 3. How often do you have six or more drinks on one occasion?: Never Total Score: 1 ZANE-7 AMB Questionnaire ZANE-7 Date ZANE - 7 assessed: 01/27/25 Feeling nervous, anxious, or on edge: 0 = Not at all Not being able to stop or control worryin = Not at all Worrying too much about different things: 0 = Not at all Trouble relaxin = Not at all Being so restless that it is hard to sit still: 0 = Not at all Becoming easily annoyed or irritable: 0 = Not at all Feeling afraid as if something awful might happen: 0 = Not at all Total ZANE-7 score (0-4 normal; 5-9 mild; 10-14 moderate; 15-21 severe): 0 Source: Developed by Drs. Sang Rhoades, Jackie Bright, Volodymyr Izaguirre and colleagues, with an educational nataliia from [employer]. ZANE-7 Assessment Billing ZANE-7 Assessment Tool: ZANE-7 Assessment 59862 Review of Systems Const All systems reviewed & are unremarkable except as noted in HPI and below Eyes Reports no additional complaints ENT Reports no additional complaints Card Reports no additional complaints Resp Reports no additional complaints GI Reports no additional complaints Reports no additional complaints Physical exam (Primary Care) Vital Signs: Last Vital Signs Temp 97.9 F 01/27/25 08:16 Pulse 69 01/27/25 08:16 Resp 18 01/27/25 08:16 BP 132/76 01/27/25 08:16 Pulse Ox 99 01/27/25 08:16 Oxygen Delivery Method Room Air 01/27/25 08:16 BMI result Body Mass Index 28.9 Tobacco/Smoking Status: Tobacco use Status Tobacco use date assessed 01/27/25 01/27/25 08:24 Patient Tobacco Use Status Former Tobacco user 01/27/25 08:16 e-Cigarette/Vaping Use Never Used 01/27/25 08:16 PHQ-9: PHQ-9 Score PHQ-9: Total score 0 01/27/25 08:24 Depression Screening Interpretation: Negative Thrive Assessment: Date of Thrive Assessment Date Thrive assessed 01/27/25 01/27/25 08:24 Const General: no acute distress HENMT Head: Yes normal to inspection Ears: hearing grossly normal bilaterally Throat: Yes posterior oropharynx normal Eyes General: appearance normal, both eyes and all related structures Neck Neck: Yes no lymphadenopathy and Yes supple Resp Effort & Inspection: normal respiratory effort Auscultation: clear to auscultation bilaterally Cardio Rhythm: regular rhythm Heart sounds: S1 normal heart sound present and S2 normal heart sound present GI Inspection: Yes normal to inspection Palpation (GI): Soft to palpation Percussion: Yes normal to percussion Auscultation: normal bowel sounds Coding Level of Care Code Est Pt Prev Care >65y(42891) Diagnoses Multiple thyroid nodules E04.2 Thrombocytopenia D69.6 Hyperlipidemia E78.5 Vitamin D deficiency E55.9 Colon cancer screening Z12.11 Additional Codes ZANE-7 Assessment Billing - ZANE-7 Assessment Tool: ZAEN-7 Assessment 23701 ([id number]) PHQ-9 - 65863 - PHQ-9 Billing: Yes ([id number]) Assessment & Plan Assessment & Plan (1) Multiple thyroid nodules: Comment: Multinodular thyroid goiter diagnosed December 2023, patient did not see endocrinology despite being referred to Code(s): E04.2 - Nontoxic multinodular goiter Category: Medical Plan: Obtain repeat thyroid ultrasound to evaluate for any change in the nodule size or need for endocrinological follow-up (2) Thrombocytopenia: Code(s): D69.6 - Thrombocytopenia, unspecified Category: Medical Plan: Monitor CBC (3) Hyperlipidemia: Comment: On low-cholesterol diet, pt declined statin 12/23, normal carotid artery ultrasound 12/2023 Code(s): E78.5 - Hyperlipidemia, unspecified Category: Medical Plan: Continue low-cholesterol diet (4) Vitamin D deficiency: Code(s): E55.9 - Vitamin D deficiency, unspecified Category: Medical Plan: Continue vitamin-D. (5) Colon cancer screening: Comment: Negative Cologuard October 2021, by insurance Code(s): Z12.11 - Encounter for screening for malignant neoplasm of colon Category: Medical Plan: Check Cologuard report Orders: Orders US thyroid Today E04.2 - Nontoxic multinodular goiter Complete Blood Count Auto Diff 1 Year D69.6 - Thrombocytopenia, unspecified, E04.9 - Nontoxic goiter, unspecified, E55.9 - Vitamin D deficiency, unspecified, E78.5 - Hyperlipidemia, unspecified Vitamin D 25-OH Total 1 Year D69.6 - Thrombocytopenia, unspecified, E04.9 - Nontoxic goiter, unspecified, E55.9 - Vitamin D deficiency, unspecified, E78.5 - Hyperlipidemia, unspecified TSH reflex Free T4 1 Year D69.6 - Thrombocytopenia, unspecified, E04.9 - Nontoxic goiter, unspecified, E55.9 - Vitamin D deficiency, unspecified, E78.5 - Hyperlipidemia, unspecified Comprehensive [place]. Panel Fast 1 Year D69.6 - Thrombocytopenia, unspecified, E04.9 - Nontoxic goiter, unspecified, E55.9 - Vitamin D deficiency, unspecified, E78.5 - Hyperlipidemia, unspecified IRON PROFILE 1 Year D69.6 - Thrombocytopenia, unspecified, E04.9 - Nontoxic goiter, unspecified, E55.9 - Vitamin D deficiency, unspecified, E78.5 - Hyperlipidemia, unspecified Lipid Panel 1 Year D69.6 - Thrombocytopenia, unspecified, E04.9 - Nontoxic goiter, unspecified, E55.9 - Vitamin D deficiency, unspecified, E78.5 - Hyperlipidemia, unspecified Referrals Endocrinology Referral E04.2 - Nontoxic multinodular goiter
--- OUTSIDE RECORDS SUMMARY | 2025-01-27 08:19 | XMS_ITS | Patient Health Record ---
[facility] Address [address] [place] [address] Care Team Providers Care Comfort Station Attendant Name Role Phone Sharon Fleming MD Primary Care Provider Unavaila paolo Mills Elvira Unavailable [phone] Allergies Allergen (clinical drug ingredient) Drug/Non Drug Allergy documented on EMR Reaction Allergy Type Onset Date Status acetaminophen / oxycodone Percocet Unknown Drug Allergy Active Seasonal IC Unknown Drug Allergy Activ e Reason For Referral No Information Medications Medication SIG (Take, Route, Frequency, Duration) Notes Start Date End Date Status Vitamin B Complex Ac tive Vitamin D3 Active Ammonium Lactate 12 % 1 application Exte rnally to affected areas of dry skin to feet except for between the toes Twice a day for 30 days Active Hair Skin Nails - as directed Orally Active Magnesium Active Probiotic Active Formula 7 The Solution [...] Problem Acquired hammer toe of right foot (4180850832818404) Other hammer toe(s) (acquired), right foot (M20.41) Active confirmed Problem Acquired hallux valgus (83789400) Hallux valgus (acquired), left foot (M20.12) Active confirmed Problem Acquired hammer toe of left foot (2000520742701135) Other hammer toe(s) (acquired), left foot (M20.42) Active confirmed Problem Plantar wart (80230069) Plantar wart (B07.0) Active confirmed Problem Localized, primary osteoarthritis of the ankle and/or foot (833093607) Primary osteoarthrit is, right ankle and foot (M19.071) Active confirmed Problem Acquired hallux valgus (18854010) Hallux valgus (acquired), right foot (M20.11) Active confirmed Vital Signs Blood pressure diastolic 80 mm Hg 12/16/2024 Height 5ft1in in 12/16/2024 Blood pressure systolic 130 mm Hg 12/16/2024 Weight 145 lbs 12/16/2024 BMI 27.39 kg/m2 12/16/2024 Procedures Procedure Date Ordered Date Performed Result Body Sit e 81075-PSUBHAK NAIL, 6 OR MORE 04/19/2024 N/A 45414-Ylksglgm Plate 04/19/2024 N/A 67508-XXCXWCF NAIL, 6 OR MORE 08/19/2024 N/A 40821-HKMVHDT NAIL, 6 OR MORE 12/16/2024 N/A 19844-Nzptltwc Plate 12/16/2024 N/A 79440-Zxhkcdya Plate Each Additional 12/16/2024 N/A Encounters Encounter Location Date Provider Diagnosis [address] [address] 04/19/2024 Elvira Black Tinea unguium B35.1 ; Ingrowing nail L60.0 ; Pain in right toe(s) M79.674 and Pain in left toe(s) M79.[address] [address] 08/19/2024 Elvira Black Tinea unguium B35.1 ; Xerosis of skin L85.3 ; Pain in right toe(s) M79.674 and Pain in left toe(s) M79.[address] [address] 12/16/2024 Elvira Black Xerosis of skin L85.3 ; Ingrown nail L60.0 ; Tinea unguium B35.1 ; Pain in right toe(s) M79.674 and Pain in left toe(s) M79.675 [facility] [address] [address] 02/10/2024 Elvira Mills Assessments Encounter Date Diagnosis (ICD Code) Assessment Notes Treatment Notes Treatment Clinical Notes Section Notes 04/19/2024 Tinea unguium (ICD-10 - B35.1) 04/19/2024 Ingrowing nail (ICD-10 - L60.0) 08/19/2024 Tinea unguium (ICD-10 - B35.1) 08/19/2024 Xerosis of skin (ICD-10 - L85.3) 12/16/2024 Ingrown nail (ICD-10 - L60.0) 12/16/2024 Xerosis of skin (ICD-10 - L85.3) 12/16/2024 Tinea unguium (ICD-10 - B35.1) 08/19/2024 Pain in right toe(s) (ICD-10 - M79.674) 04/19/2024 Pain in right toe(s) (ICD-10 - M79.674) 04/19/2024 Pain in left toe(s) (ICD-10 - M79.675) 08/19/2024 Pain in left toe(s) (ICD-10 - M79.675) 12/16/2024 Pain in right toe(s) (ICD-10 - M79.674) 12/16/2024 Pain in left toe(s) (ICD-10 - M79.675) Plan Of Treatment Pending Test Test Name Order Date 84183-GGRHCVY NAIL, 6 OR MORE 04/13/2020 99316-MYQFFCE NAIL, 6 OR MORE 07/13/2020 50244-LWPUGEO NAIL, 6 OR MORE 11/20/2020 84964-ZKKSTTV NAIL, 6 OR MORE 03/22/2021 60973-MFSUISW NAIL, 6 OR MORE 07/23/2021 03189-XREGVFM NAIL, 6 OR MORE 11/26/2021 97777-YAUUAPC NAIL, 6 OR MORE 03/25/2022 46081-PFWRCSR NAIL, 6 OR MORE 07/22/2022 77925-AULJKNC NAIL, 6 OR MORE 02/03/2023 78407-VNRPFCZ NAIL, 6 OR MORE 08/11/2023 04559-YGALRIH NAIL, 6 OR MORE 04/19/2024 21409-VJDNDWP NAIL, 6 OR MORE 08/19/2024 84796-OZQGKAU NAIL, 6 OR MORE 12/16/2024 92733-Vmbz Destruction, 1-14 08/11/2023 59546-Jfbxlxfo Plate 04/19/2024 56770-Jzqmmumr Plate 03/25/2022 09004-Hniljdwj Plate 07/23/2021 48920-Neardmnq Plate 03/23/2020 12620-Vnmzghrb Plate 03/22/2021 92824-Hlljyigz Plate 02/03/2023 08548-Ffrlgobs Plate 12/16/2024 79125-Fnkbyfbd Plate Each Additional 52772-Dlwweyml Plate Each Additional 12/2022 38756- Debride <25 sq cm 04/13/2020 Next Appt Details Provider Name:Elvira Mills , 04/18/2025 09:15:00 AM, [address] [place], [address], Insurance Providers Payer Name Payer Address Payer Phone Subscriber Number Group Number Insured Name Patient Relationship to Insured Coverage Start Date Coverage End Date BlueCare 65 Medicare Preferred [address] [place] [address] [phone] [id number] Lakesha Betancourt Self - patient is the insured Medical (General) History Medical History History ICD Code Back,Hip,and Knee pain Cataracts crown on big tooth Back pain Surgical History Surgery Date(Month/Year) cataract-lens implants [facility] [place]- 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
== END 2025-01-27 09:06 | disposition home or self-care (01) ==
LOC: HO.HMCC 08:15
PROVIDERS: PCP Internal Medicine; Visit Provider Internal Medicine
DX: Z00.00 Encounter for general adult medical examination without abnormal findings (principal); E04.2 Nontoxic multinodular goiter; D69.6 Thrombocytopenia, unspecified; E78.5 Hyperlipidemia, unspecified; E55.9 Vitamin D deficiency, unspecified; Z12.11 Encounter for screening for malignant neoplasm of colon

== ENCOUNTER → 2025-01-27 08:14 | Outpatient (BNVA) | payer MEDICARE, SELFPAY | PROVIDERS: PCP Internal Medicine; Visit Provider Internal Medicine | DX: Z00.00 Encounter for general adult medical examination without abnormal findings (principal); E04.2 Nontoxic multinodular goiter; D69.6 Thrombocytopenia, unspecified; E78.5 Hyperlipidemia, unspecified; E55.9 Vitamin D deficiency, unspecified; Z79.899 Other long term (current) drug therapy | CPT/HCPCS: 96127; 99397 ==

== ENCOUNTER 2025-02-01 11:38 | Outpatient (REF) | payer MEDICARE, SELFPAY ==
--- OUTSIDE RECORDS SUMMARY | 2025-02-01 13:14 | XMS_ITS | Patient Health Record ---
[facility] Address [address] [place] [address] Care Team Providers Care Supervisor [employer] Name Role Phone Sharon Fleming MD Primary Care Provider Unavaila paolo Mills Elvira Unavailable [phone] Allergies Allergen (clinical drug ingredient) Drug/Non Drug [...] Problem Acquired hammer toe of right foot (9456145584232528) Other hammer toe(s) (acquired), right foot (M20.41) Active confirmed Problem Acquired hallux valgus (97202794) Hallux valgus (acquired), left foot (M20.12) Active confirmed Problem Acquired hammer toe of left foot (0886242850940433) Other hammer toe(s) (acquired), left foot (M20.42) Active confirmed Problem Plantar wart (93538258) Plantar wart (B07.0) Active confirmed Problem Localized, primary osteoarthritis of the ankle and/or foot (340686861) Primary osteoarthrit is, right ankle and foot (M19.071) Active confirmed Problem Acquired hallux valgus (87758727) Hallux valgus (acquired), right foot (M20.11) Active confirmed Vital Signs Blood pressure diastolic 80 mm Hg 12/16/2024 Height 5ft1in in 12/16/2024 Blood pressure systolic 130 mm Hg 12/16/2024 Weight 145 lbs 12/16/2024 BMI 27.39 kg/m2 12/16/2024 Procedures Procedure Date Ordered Date Performed Result Body Sit e 67528-UZJXSGY NAIL, 6 OR MORE 04/19/2024 N/A 06878-Xpdgiivq Plate 04/19/2024 N/A 11856-YGRNCLR NAIL, 6 OR MORE 08/19/2024 N/A 16043-PKUAQOX NAIL, 6 OR MORE 12/16/2024 N/A 70477-Fwsgcbkh Plate 12/16/2024 N/A 34640-Cqadsxtz Plate Each Additional 12/16/2024 N/A Encounters Encounter Location Date Provider Diagnosis [address] [address] 04/19/2024 Elvira Black Tinea unguium B35.1 ; Ingrowing nail L60.0 ; Pain in right toe(s) M79.674 and Pain in left toe(s) M79.[address] [address] 08/19/2024 Elvira Black Tinea unguium B35.1 ; Xerosis of skin L85.3 ; Pain in right toe(s) M79.674 and Pain in left toe(s) M79.[address] [address] 12/16/2024 Elviar Black Xerosis of skin L85.3 ; Ingrown nail L60.0 ; Tinea unguium B35.1 ; Pain in right toe(s) M79.674 and Pain in left toe(s) M79.675 [facility] [address] [address] 02/10/2024 Elvira Mills Assessments Encounter Date Diagnosis (ICD Code) Assessment Notes Treatment Notes Treatment Clinical Notes Section Notes 12/16/2024 Ingrown nail (ICD-10 - L60.0) 12/16/2024 Xerosis of skin (ICD-10 - L85.3) 08/19/2024 Tinea unguium (ICD-10 - B35.1) 08/19/2024 Xerosis of skin (ICD-10 - L85.3) 04/19/2024 Tinea unguium (ICD-10 - B35.1) 04/19/2024 Ingrowing nail (ICD-10 - L60.0) 04/19/2024 Pain in right toe(s) (ICD-10 - M79.674) 12/16/2024 Tinea unguium (ICD-10 - B35.1) 08/19/2024 Pain in right toe(s) (ICD-10 - M79.674) 08/19/2024 Pain in left toe(s) (ICD-10 - M79.675) 12/16/2024 Pain in right toe(s) (ICD-10 - M79.674) 04/19/2024 Pain in left toe(s) (ICD-10 - M79.675) 12/16/2024 Pain in left toe(s) (ICD-10 - M79.675) Plan Of Treatment Pending Test Test Name Order Date 25399-VJLAHFB NAIL, 6 OR MORE 04/13/2020 41176-DXTVZRY NAIL, 6 OR MORE 07/13/2020 43705-JQGOOYX NAIL, 6 OR MORE 11/20/2020 46894-LZTELEV NAIL, 6 OR MORE 03/22/2021 54055-DLBLIEV NAIL, 6 OR MORE 07/23/2021 00816-WOYSJLM NAIL, 6 OR MORE 11/26/2021 02591-JQEGPIF NAIL, 6 OR MORE 03/25/2022 61765-ACUMZQX NAIL, 6 OR MORE 07/22/2022 76858-XGYUUJT NAIL, 6 OR MORE 02/03/2023 30630-EHBUCUT NAIL, 6 OR MORE 08/11/2023 33202-GQEWYMJ NAIL, 6 OR MORE 04/19/2024 04781-MWTKHLG NAIL, 6 OR MORE 08/19/2024 04827-HEVBOLP NAIL, 6 OR MORE 12/16/2024 07384-Esio Destruction, 1-14 08/11/2023 35170-Bjjgndct Plate 04/19/2024 59730-Trhkpzls Plate 03/25/2022 39097-Pssywcqe Plate 07/23/2021 14713-Nzqhcraq Plate 03/23/2020 50531-Llyijyty Plate 03/22/2021 09208-Mhrpsekp Plate 02/03/2023 54267-Paqfcbeq Plate 12/16/2024 47122-Ayaoadas Plate Each Additional 37843-Vgavvimd Plate Each Additional 12/2022 82071- Debride <25 sq cm 04/13/2020 Next Appt Details Provider Name:Elvira Mills , 04/18/2025 09:15:00 AM, [address] [place], [address], Insurance Providers Payer Name Payer Address Payer Phone Subscriber Number Group Number Insured Name Patient Relationship to Insured Coverage Start Date Coverage End Date BlueCare 65 Medicare Preferred [address] [place] [address] [phone] [id number] Lakesha Betancourt Self - patient is the insured Medical (General) History Medical History History ICD Code Back,Hip,and Knee pain Cataracts crown on big tooth Back pain Surgical History Surgery Date(Month/Year) cataract-lens implants [facility] [place] removal from neck 01/2024 Hospitalization History Reason Date(Month/Year) [facility] [place]- Severe dehydration 06/23
== END 2025-02-01 11:39 | disposition home or self-care (01) ==
LOC: HO.MAMMO 11:38
PROVIDERS: PCP Internal Medicine; Visit Provider Internal Medicine
DX: Z12.31 Encounter for screening mammogram for malignant neoplasm of breast (principal)
CPT/HCPCS: 77063; 77067

== ENCOUNTER → 2025-02-01 12:00 | Outpatient (BNV) | payer MEDICARE, SELFPAY | PROVIDERS: PCP Internal Medicine; Visit Provider Internal Medicine | DX: Z12.31 Encounter for screening mammogram for malignant neoplasm of breast (principal) | CPT/HCPCS: 77063; 77067 ==

== ENCOUNTER 2025-03-07 10:16 | Outpatient (REF) | payer MEDICARE, SELFPAY ==
--- NOTE | ~2025-03-07 | US_ITS ---
EXAMINATION: US THYROID CLINICAL INFORMATION: Nontoxic Multinodular goiter. COMPARISON: 06/22/2024 TECHNIQUE: Linear transducer grayscale and color Doppler examination with attention to the region of the thyroid. FINDINGS: SIZE: Measurements of the thyroid lobes and nodules are given in sagittal, anteroposterior and transverse dimensions respectively. Right Thyroid Lobe: 5.9 x 3.4 x 1.7 cm, volume 17.8 mL. (Previously 13.7 mL) Parenchyma: The gland echotexture is heterogeneous. Thyroid vascularity is normal. Left Thyroid Lobe: 5.2 x 2.2 x 1.6 cm, volume 9.5 mL. (Unchanged) Parenchyma: The gland echotexture is heterogeneous. Thyroid vascularity is normal. Isthmus: 0.6 cm in maximum AP dimension. Estimated total number of nodules greater than or equal to 1 cm: 4. Water [employer] nodules are described as follows: 1. Location: Right upper pole. Size: 1.3 x 0.7 x 1.1 cm, volume 0.5 mL. (Previously 0.57 mL) Nodule characteristics: Composition: Spongiform (0). ACR TI-RADS total points: 0 ACR TI-RADS category: 1 (previously categorized as TR category 4) 2. Location: Right mid pole. Size: 0.6 x 0.5 x 0.45 cm, volume 0.08 mL. (Previously not seen) Nodule characteristics: Composition: Solid (2). Echogenicity: Isoechoic (1). Shape: Taller than wide (3). Margins: Smooth (0). Echogenic Foci: None (0). ACR TI-RADS total points: 6 ACR TI-RADS category: 4 (new from prior). 3. Location: Left upper pole. Size: 1.5 x 1.1 x 1.2 cm, volume 1.1 mL. (Previously 0.57 mL) Nodule characteristics: Composition: Mixed cystic and solid (1). Echogenicity: Very hypoechoic (3). Shape: Not taller than wide (0). Margins: Smooth (0). Echogenic Foci: None (0). ACR TI-RADS total points: 4 ACR TI-RADS category: 4 4. Location: [Mid pole laterally. Size: 0.9 x 1.0 x 0.7 cm, volume 0.30 mL. (Previously not seen) Nodule characteristics: Composition: Spongiform (0). ACR TI-RADS total points: 0 ACR TI-RADS category: 1 5. Location: Left upper pole. Size: 1.4 x 1.1 x 1.1 cm, volume 0.9 mL. (Previously 2.5 mL) Nodule characteristics: Composition: Solid (2). Echogenicity: Isoechoic (1). Shape: Not taller than wide (0). Margins: Smooth (0). Echogenic Foci: Punctate echogenic foci (3). ACR TI-RADS total points: 6 ACR TI-RADS category: 4 (previously categorized as TR category 4) NODES: No lymphadenopathy is seen in the tissue surrounding the thyroid gland. US/US thyroid IMPRESSION: 1. There is a new 0.7 cm TR category 4 nodule in the right mid pole. No follow-up recommended. 2. There is a 1.5 cm TR category 4 nodule in the left upper pole, increased significantly in size (0.57 mL to 1.1 mL). FNA advised. 3. There is a 1.4 cm TR category 4 nodule in the left upper pole, significantly decreased in size suggesting benignity. Follow-up advised. 4. There are spongiform nodules in the right upper pole, and left midpole laterally. No follow-up recommended. 5. Thyroid parenchyma is heterogeneous suggesting thyroiditis. ----- ACR TI-RADS RECOMMENDATION REFERENCE: Ultrasound-guided fine-needle aspiration, followup ultrasound, no further follow up. * TR1 (0 point) and TR2 (2 points): No FNA or follow up. * TR3 (3 points): FNA if more than or equal to 2.5 cm in maximum dimension, followup ultrasound in 1, 3 and 5 years if 1.5 to 2.4 cm in maximum dimension. * TR4 (4-6 points): FNA if more than or equal to 1.5 cm in maximum dimension, followup ultrasound in 1, 2, 3 and 5 years if 1 to 1.4 cm in maximum dimension. * TR5 (more than or equal to 7 points): FNA if more than or equal to 1 cm in maximum dimension, followup ultrasound every year for 5 years if 0.5 to 0.9 cm in maximum dimension. * TR3, TR4 or TR5 nodules that are below the size threshold for followup receive no follow up. Electronically signed by: Den Strong MD 03/07/2025 12:51 PM EDT
== END 2025-03-07 10:17 | disposition home or self-care (01) ==
LOC: HO.HMGCX 10:16
PROVIDERS: Absent Provider Student in an Organized Health Care Education/Training Program; PCP Internal Medicine; Visit Provider Internal Medicine
DX: E04.2 Nontoxic multinodular goiter (principal)
CPT/HCPCS: 76536

== ENCOUNTER → 2025-03-07 10:33 | Outpatient (BNV) | payer MEDICARE, SELFPAY | PROVIDERS: Absent Provider Student in an Organized Health Care Education/Training Program; PCP Internal Medicine; Visit Provider Radiology Diagnostic Radiology | DX: E04.2 Nontoxic multinodular goiter (principal) | CPT/HCPCS: 76536 ==

== ENCOUNTER 2025-03-18 08:09 | Outpatient (AMB) | payer MEDICARE, SELFPAY ==
--- OUTSIDE RECORDS SUMMARY | 2025-03-18 08:13 | XMS_ITS | Patient Health Record ---
[facility] Address [address] [place] [address] Care Team Providers Care Security Guard Supervisor Name Role Phone Sharon Fleming MD Primary Care Provider Unavaila paolo Mills Elvira Unavailable [phone] Allergies Allergen (clinical drug ingredient) Drug/Non Drug [...] except for between the toes Twice a day; Duration: 30 days Active Hair Skin Nails - [...] Problem Acquired hammer toe of right foot (8427649522402998) Other hammer toe(s) (acquired), right foot (M20.41) Active confirmed Problem Acquired hallux valgus (74532281) Hallux valgus (acquired), left foot (M20.12) Active confirmed Problem Acquired hammer toe of left foot (5927415726552772) Other hammer toe(s) (acquired), left foot (M20.42) Active confirmed Problem Plantar wart (B07.0) Active confirmed Problem Localized, primary osteoarthritis of the ankle and/or foot (305173576) Primary osteoarthrit is, right ankle and foot (M19.071) Active confirmed Problem Acquired hallux valgus (80328687) Hallux valgus (acquired), right foot (M20.11) Active confirmed Vital Signs Blood pressure diastolic 80 mm Hg 12/16/2024 Height 5ft1in in 12/16/2024 Blood pressure systolic 130 mm Hg 12/16/2024 Weight 145 lbs 12/16/2024 BMI 27.39 kg/m2 12/16/2024 Procedures Procedure Date Ordered Date Performed Result Body Sit e 61124-VWDVZKI NAIL, 6 OR MORE 04/19/2024 N/A 81503-Bqgrlvyi Plate 04/19/2024 N/A 81126-GQETWSC NAIL, 6 OR MORE 08/19/2024 N/A 43500-CDPNNUH NAIL, 6 OR MORE 12/16/2024 N/A 77425-Uwfhtixa Plate 12/16/2024 N/A 12166-Kgateemd Plate Each Additional 12/16/2024 N/A Encounters Encounter Location Date Provider Diagnosis [address] [address] 04/19/2024 Elvira Black Tinea unguium B35.1 ; Ingrowing nail L60.0 ; Pain in right toe(s) M79.674 and Pain in left toe(s) M79.[address] [address] 08/19/2024 Elvira Black Tinea unguium B35.1 ; Xerosis of skin L85.3 ; Pain in right toe(s) M79.674 and Pain in left toe(s) M79.[address] [address] 12/16/2024 Elvira Black Xerosis of skin L85.3 [...] Treatment Pending Test Test Name Order Date 77462-UMHWUCW NAIL, 6 OR MORE 04/13/2020 99863-NSNINUH NAIL, 6 OR MORE 07/13/2020 91504-NXUOGNK NAIL, 6 OR MORE 11/20/2020 36290-KHYKATR NAIL, 6 OR MORE 03/22/2021 77609-VTZUZDO NAIL, 6 OR MORE 07/23/2021 72261-XAYUNAF NAIL, 6 OR MORE 11/26/2021 44493-ZRYXQZT NAIL, 6 OR MORE 03/25/2022 38492-DRYVNWC NAIL, 6 OR MORE 07/22/2022 44521-ITHFEPJ NAIL, 6 OR MORE 02/03/2023 23891-BEJQHUD NAIL, 6 OR MORE 08/11/2023 99125-SIPSGZI NAIL, 6 OR MORE 04/19/2024 01915-JTZDOYJ NAIL, 6 OR MORE 08/19/2024 05731-RSXWKDY NAIL, 6 OR MORE 12/16/2024 73001-Doac Destruction, 1-14 08/11/2023 91998-Bajfmvdz Plate 04/19/2024 40830-Vrehzgzc Plate 03/25/2022 48137-Srjgikxe Plate 07/23/2021 29897-Esetzvde Plate 03/23/2020 97801-Xgxvzxbk Plate 03/22/2021 45248-Jxilvdaa Plate 02/03/2023 70127-Bncofgnl Plate 12/16/2024 77684-Elnyywfa Plate Each Additional 98719-Mbncmvab Plate Each Additional 12/2022 42680- Debride <25 sq cm 04/13/2020 Next Appt Details Provider Name:Elvira Mills , 04/18/2025 09:15:00 AM, [address] [place], [address], Insurance Providers Payer Name Payer Address Payer Phone Subscriber Number Group Number Insured Name Patient Relationship to Insured Coverage Start Date Coverage End Date [facility] 63 Medicare Preferred [address] [place] [address] [phone] [id number] Lakesha Betancourt Self - patient is the insured Medical (General) History Medical History History ICD Code Back,Hip,and Knee pain Cataracts crown on big tooth Back pain Surgical History Surgery Date(Month/Year) cataract-lens implants [place] [facility] [place] [facility] [place] from [place]24 [place]ization History Reason Date(Month/Year) [facility] [place] [facility] [place] 06/23
[2025-03-18 08:27] VITALS: BP 144/82; PULSE 69; O2SAT 98; BMI 28.9
--- NOTE | 2025-03-18 08:27 | A.OFFVIS_ITS ---
Vital Signs 03/18/25 08:27 Height 5 ft 1 in Weight 152 lb 12.485 oz BMI 28.9 BP 144/82 H Blood Pressure Location Lt brachial Position Sitting Pulse 69 Pulse Source Pulse Oximeter Pulse Oximetry (%) 98 Oxygen Delivery Method Room Air Intake Visit Reasons: Nontoxic multinodular goiter Intake Note: New patient present today for Nontoxic multinodular goiter. Paper Products Supervisor Required: No Accompanied by: Self / Same As Patient Allergies acetaminophen (Percocet) Adverse Reaction (Unknown, Verified 01/27/25 08:19) nausea oxycodone (Percocet) Adverse Reaction (Unknown, Verified 01/27/25 08:19) nausea Medication List - Last Reconciled 03/18/25 by Brenda Simon MD cholecalciferol (vitamin D3) 250 mcg PO DAILY lactobacillus combination no.4 (Probiotic) 3,000 mmu cells PO DAILY magnesium 200 mg PO BEDTIME vitamin B complex 1 tab PO DAILY HPI Comments Details: 69-year-old female coming in today for initial evaluation of nontoxic multinodular goiter. 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 This has significantly decreased in size compared to previous ultrasound from 2.5 cm. Patient currently denies heat or cold intolerance, diarrhea or constipation, hair loss, palpitation, anxiety, weight changes, mood changes, low energy, changes in appearance of eyes or vision changes, tremors, increased diaphoresis or dry skin. ? Patient denies any difficulty swallowing, pain on swallowing or difficulty breathing. Intermittent hoarseness Patient denies any history of childhood neck radiation. Denies having ever used lithium, amiodarone. takes biotin supplements Patient denies any family history of thyroid cancer or thyroid disease. 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 This ultrasound also showed multiple thyroid nodules, hair multiple nodules were seen which met criteria for biopsy especially the left lower 2.5 cm TR 4 nodule. However this shrunk on the mostly this ultrasound in March 2025. 01/20/2024: CT soft tissue neck also showed the mass consistent most likely with a paraganglioma measuring 3.6 X2.5 X 5 cm. Located at the left angle of the mandible. s/p resection 03/15/24 : with Dr. Agosto vascular surgeon , path consistent with paraganglioma No family history of pheochromocytoma or paragangliom No sudden in the family no excessive anxiety No episodic symptims except once in a while she will get hot flashes, palpitations she has had a CT scan of abd in Jun 2023 [facility] showed slight pizarro but normal adrenal glands Physical exam General: sitting comfortably in no acute distress HEENT: normocephalic/atraumatic, Neck: supple, palpable 1 cm right-sided nodule, palpable 1 cm left-sided nodule Cardiac: normal heart sounds Pulm: normal breath sounds B/L, no added breath sounds Abd: not distended, no tenderness Extremities: no edema, no signs of myxedema Laboratory Tests 12/16/24 09:15 TSH 1.31 US THYROID 03/07/25 CLINICAL INFORMATION: Nontoxic Multinodular goiter. COMPARISON: 06/22/2024 TECHNIQUE: Linear transducer grayscale and color Doppler examination with attention to the region of the thyroid. FINDINGS: SIZE: Measurements of the thyroid lobes and nodules are given in sagittal, anteroposterior and transverse dimensions respectively. Right Thyroid Lobe: 5.9 x 3.4 x 1.7 cm, volume 17.8 mL. (Previously 13.7 mL) Parenchyma: The gland echotexture is heterogeneous. Thyroid vascularity is normal. Left Thyroid Lobe: 5.2 x 2.2 x 1.6 cm, volume 9.5 mL. (Unchanged) Parenchyma: The gland echotexture is heterogeneous. Thyroid vascularity is normal. Isthmus: 0.6 cm in maximum AP dimension. Estimated total number of nodules greater than or equal to 1 cm: 4. [employer] nodules are described as follows: 1. Location: Right upper pole. Size: 1.3 x 0.7 x 1.1 cm, volume 0.5 mL. (Previously 0.57 mL) Nodule characteristics: Composition: Spongiform (0). ACR TI-RADS total points: 0 ACR TI-RADS category: 1 (previously categorized as TR category 4) 2. Location: Right mid pole. Size: 0.6 x 0.5 x 0.45 cm, volume 0.08 mL. (Previously not seen) Nodule characteristics: Composition: Solid (2). Echogenicity: Isoechoic (1). Shape: Taller than wide (3). Margins: Smooth (0). Echogenic Foci: None (0). ACR TI-RADS total points: 6 ACR TI-RADS category: 4 (new from prior). 3. Location: Left upper pole. Size: 1.5 x 1.1 x 1.2 cm, volume 1.1 mL. (Previously 0.57 mL) Nodule characteristics: Composition: Mixed cystic and solid (1). Echogenicity: Very hypoechoic (3). Shape: Not taller than wide (0). Margins: Smooth (0). Echogenic Foci: None (0). ACR TI-RADS total points: 4 ACR TI-RADS category: 4 4. Location: [Mid pole laterally. Size: 0.9 x 1.0 x 0.7 cm, volume 0.30 mL. (Previously not seen) Nodule characteristics: Composition: Spongiform (0). ACR TI-RADS total points: 0 ACR TI-RADS category: 1 5. Location: Left upper pole. Size: 1.4 x 1.1 x 1.1 cm, volume 0.9 mL. (Previously 2.5 mL) Nodule characteristics: Composition: Solid (2). Echogenicity: Isoechoic (1). Shape: Not taller than wide (0). Margins: Smooth (0). Echogenic Foci: Punctate echogenic foci (3). ACR TI-RADS total points: 6 ACR TI-RADS category: 4 (previously categorized as TR category 4) NODES: No lymphadenopathy is seen in the tissue surrounding the thyroid gland. US/US thyroid IMPRESSION: 1. There is a new 0.7 cm TR category 4 nodule in the right mid pole. No follow-up recommended. 2. There is a 1.5 cm TR category 4 nodule in the left upper pole, increased significantly in size (0.57 mL to 1.1 mL). FNA advised. 3. There is a 1.4 cm TR category 4 nodule in the left upper pole, significantly decreased in size suggesting benignity. Follow-up advised. 4. There are spongiform nodules in the right upper pole, and left midpole laterally. No follow-up recommended. 5. Thyroid parenchyma is heterogeneous suggesting thyroiditis. US THYROID 01/05/24 CLINICAL INFORMATION: Multinodular thyroid goiter. COMPARISON: None available. TECHNIQUE: Linear transducer grayscale and color Doppler examination with attention to the region of the thyroid. FINDINGS: SIZE: Measurements of the thyroid lobes and nodules are given in sagittal, anteroposterior and transverse dimensions respectively. Right Thyroid Lobe: 4.9 x 2.8 x 1.9 cm, volume 13.7 mL. Parenchyma: The gland echotexture is heterogeneous. Thyroid vascularity is normal. Left Thyroid Lobe: 2.4 x 2.4 x 1.9 cm, volume 5.71 mL. Parenchyma: The gland echotexture is heterogeneous. Thyroid vascularity is normal. Isthmus: 0.8 cm in maximum AP dimension. Estimated total number of nodules greater than or equal to 1 cm: 5. [employer] nodules are described as follows: 1. Location: Right mid. Size: 2.4 x 2.4 x 1.9 cm, volume 5.71 mL. Nodule characteristics: Composition: Solid/almost completely solid (2). Echogenicity: Isoechoic (1). Shape: Taller than wide (3). Margins: Ill-defined (0). Echogenic Foci: None (0). ACR TI-RADS total points: 6 ACR TI-RADS category: 4 2. Location: Right lower pole medial. Size: 1.4 x 1.1 x 1.3 cm, volume 0.98 mL. Nodule characteristics: Composition: Solid (2). Echogenicity: Hypoechoic (2). Shape: Not taller than wide (0). Margins: Ill-defined (0). Echogenic Foci: Punctate echogenic foci (3). ACR TI-RADS total points: 7 ACR TI-RADS category: 5 3. Location: Left upper. Size: 1.2 x 0.9 x 1.0 cm, volume 0.57 mL. Nodule characteristics: Composition: Solid/almost completely solid (2). Echogenicity: Hypoechoic (2). Shape: Not taller than wide (0). Margins: Smooth (0). Echogenic Foci: Macrocalcifications (1). ACR TI-RADS total points: 5 ACR TI-RADS category: 4 4. Location: Left lower isthmus. Size: 1.3 x 0.7 x 1.1 cm, volume 0.52 mL. Nodule characteristics: Composition: Solid/almost completely solid (2). Echogenicity: Isoechoic (1). Shape: Not taller than wide (0). Margins: Ill-defined (0). Echogenic Foci: None (0). ACR TI-RADS total points: 3 ACR TI-RADS category: 3 5. Location: Left lower. Size: 2.5 x 1.3 x 1.5 cm, volume 2.55 mL. Nodule characteristics: Composition: Solid/almost completely solid (2). Echogenicity: Isoechoic (1). Shape: Not taller than wide (0). Margins: Ill-defined (0). Echogenic Foci: Macrocalcifications (1). ACR TI-RADS total points: 4 ACR TI-RADS category: 4 NODES: There is a 5.5 x 2.7 x 4.4 cm heterogeneous, hypoechoic complex solid mass with extensive internal vascularity in the left neck at level 2. Differential considerations include abnormal lymph node, carotid body tumor or other neck mass. MRI recommended for further evaluation. US/US thyroid IMPRESSION: 1. Multinodular thyroid gland. Evaluation limited as difficult to discern precise nodule margins. Left lower 2.5 cm TR 4 nodule, right mid to 0.4 cm TR 4 nodule and right lower 1.4 cm TR 5 nodule meet criteria for biopsy. Fine-needle aspiration of at least the largest 2 nodules recommended. 2. A 5.5 cm heterogeneous, hypoechoic complex solid mass with extensive internal vascularity in the left neck at level 2. Differential considerations include abnormal lymph node, carotid body tumor or other neck mass. MRI recommended for further evaluation. This study was presented today January 07, 2024 for interpretation. PSA staff will provide results to referring provider at this time. CT SOFT TISSUE NECK WITH CONTRAST 01/20/24 CLINICAL INFORMATION: Localized swelling, mass and lump, neck. COMPARISON: Thyroid ultrasound 01/05/2024 TECHNIQUE: Following the intravenous administration of 60 mL of Omnipaque 350 intravenous contrast, helical imaging was performed in the axial plane with generation of coronal and sagittal reformatted images. This CT examination was performed using dose optimization techniques as appropriate, variously including the following: *Automated exposure control *Adjustment of mA and/or kV according to patient size (this includes techniques or standardized protocols for targeted exams where dose is matched to indication/reason for exam; i.e. extremities or head) *Use of iterative reconstruction technique DLP: 270 mGy-cm FINDINGS: A 3.6 cm X 2.5 cm X5 0.0 cm (AP X lateral X SI) strongly enhancing lesion with mild heterogeneous enhancement resides in the region of the left carotid space partially splaying the internal and external carotid arteries and projecting posteromedial to the carotid bifurcation. The lesion is without associated calcification or adjacent inflammatory changes. Elsewhere in the neck, no lymphadenopathy is identified. The mass above corresponds to the heterogeneous, hypoechoic complex solid mass with extensive internal vascularity noted on the comparison thyroid ultrasound of 01/05/2024. The thyroid demonstrates bilateral low density nodules measuring up to approximately 11 mm in maximum dimension. A single dominant nodule measuring 11 mm in dimension is present anteriorly within the middle segment of the right lobe of the thyroid. A 7 mm low-density nodule is dominant within the right lobe of the thyroid within the middle segment laterally. Within the incidentally visualized intracranial structures, no abnormalities are identified though this examination is not tailored for optimal visualization of intracranial structures. Bilateral ocular lens replacements are noted. The mass above results in mild extrinsic rightward deformation of the pharynx. The larynx and pharynx are otherwise normal in appearance. The parotid, submandibular and visualized sublingual glands are normal in appearance. Multifocal dental amalgam is present and gives rise to scattering artifact partially obscuring visualization of adjacent transaxial structures. Mild scattered calcific plaques are present within the transverse aorta. Minimal calcific plaque is noted within the left carotid bulb. The incidentally visualized lung apices are clear. Minimal opacification of mastoid air cells at the mastoid tip is noted on the left and are of uncertain clinical significance. The remainder the paranasal sinuses, mastoid air cells and middle ear cavities are clear. Moderate posterior endplate disc-osteophyte complexes are partially visualized at C4-C5 and C5-C6. CT/CT soft tissue neck w IV con IMPRESSION: 1. Single 3.6 cm X 2.5 cm X 5.0 cm (AP X lateral X SI) mass in the region of the left carotid bifurcation with extensive internal vascularity corresponding to the mass noted on the comparison thyroid ultrasound of 01/05/2024 located the at the level of the left angle of the mandible. 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 No additional cervical lymphadenopathy identified. The differential diagnosis includes a carotid sheath schwannoma or enhancing lymph node. The location of this lesion with splaying of the carotid bulb is suggestive of a carotid body paraganglioma. Consider further evaluation with unenhanced and IV contrast-enhanced MRI of the neck which may reveal signal characteristics for a specific tumor entity and may better delineate the precise location of adjacent vascularity. 2. Multiple bilateral thyroid nodules measuring up to 11 mm in maximum dimension. The dominant nodule is present within the middle segment of the right lobe of the thyroid measuring 11 mm in maximum dimension. As noted on the comparison thyroid ultrasound of 01/05/2024 bilateral thyroid nodules on the basis of their sonographic characteristics warrant histologic sampling. Please refer to the examination of 01/05/2024 for related findings and impressions. 3. Partially visualized moderate posterior endplate disc-osteophyte complexes at C4-C5 and C5-C6. CT ABDOMEN AND PELVIS WITH CONTRAST Jun 2023 CLINICAL INFORMATION: Abdominal pain COMPARISON: None available. TECHNIQUE: Multidetector volumetric images were obtained from the superior aspect of the liver through the pubic symphysis following administration 85 mL of Omnipaque 350 intravenous contrast. Sagittal and coronal reformatted images were obtained on the technologist's workstation. This CT examination was performed using dose optimization techniques as appropriate, variously including the following: *Automated exposure control *Adjustment of mA and/or kV according to patient size (this includes techniques or standardized protocols for targeted exams where dose is matched to indication/reason for exam; i.e. extremities or head) *Use of iterative reconstruction technique DLP: 427 mGy-cm FINDINGS: Visualized lung bases are well aerated. The liver is mildly enlarged. There are a few subcentimeter hypodense foci within the liver which are too small to accurately characterize but statistically cysts. The gallbladder is normal in appearance. There is mild fatty atrophy of the pancreas. The spleen is normal in size. Small anterior splenule. The adrenal glands are unremarkable. Symmetrically enhancing kidneys. Bilateral parapelvic cysts are noted, more prominent within the left kidney. There is no hydronephrosis of either kidney. Normal caliber loops of small and large bowel. Normal appendix. There is circumferential mucosal thickening of the distal sigmoid colon and rectum with associated perirectal fat stranding. Small amount of free pelvic fluid is noted. Normal caliber abdominal aorta demonstrating mild atherosclerotic disease. Refluxing nondilated left ovarian vein noted. No retroperitoneal lymphadenopathy. Small fat-containing umbilical hernia. The bladder is normal in appearance. Coarsely calcified fibroid noted within an otherwise unremarkable appearing uterus. No inguinal lymphadenopathy. Mild diffuse degenerative changes of the spine. CT/CT abdomen pelvis w IV con IMPRESSION: Circumferential mucosal thickening of the distal sigmoid colon and rectum with associated perirectal fat stranding. 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 Fleischner guidelines were followed. [facility] Medical History (Updated 03/18/25 @ 09:12 by Brenda Siomn MD) Paraganglioma Multiple thyroid nodules Enlarged thyroid Arthritis Back pain Thalassanemia Colon cancer screening Normal breast exam Vitamin D deficiency Hyperlipidemia Thrombocytopenia Annual physical exam Surgical History Hx of tonsillectomy Hx of right knee surgery Hx of cataract surgery Hx of section Family History Father No problems noted. Mother Diabetes Hypertension Stroke Social History Household Members: None Housing: House Are you a primary care assistant to a significant other at home: No Do you presently have visiting nurse or other home services: No Alcohol intake: current Alcohol intake frequency: 0-2 drinks per day Patient Tobacco Use Status: Former Tobacco user Years Smoked: 20 years e-Cigarette/Vaping Use: Never Used service: No Current occupational status: retired Cognitive needs: No Hearing needs: No Vision needs: No Physical Exam Vital Signs: Last Vital Signs Pulse 69 03/18/25 08:27 BP 144/82 H 03/18/25 08:27 Pulse Ox 98 03/18/25 08:27 Oxygen Delivery Method Room Air 03/18/25 08:27 BMI result Body Mass Index 28.9 Assessment & Plan Assessment & Plan (1) Multinodular goiter: Code(s): E04.2 - Nontoxic multinodular goiter Category: Medical Plan: 69-year-old female with no family history of thyroid cancer, with no personal history of head or neck radiation who is coming in today to establish care for nontoxic multinodular goiter. She had an ultrasound done initially in December 2023 due to left neck mass which showed multiple thyroid nodules. At that time she was found to have a left level 25.5 cm carotid body tumor as mentioned below, status post resection March 2024 which turned out to be a paraganglioma. She did well postoperatively. Most recent thyroid ultrasound repeated March 2025, I reviewed the images myself which showed a right superior 1.3 cm spongiform nodule, her right midpole 0.6 cm solid isoechoic taller than wide TR 4 category nodule, a left superior 1.5 cm mixed cystic solid very hypoechoic TR 4 category nodule which has increased significantly in size, a left mid pole 0.9 cm spongiform nodule, another left inferior 1.4 cm solid isoechoic nodule with punctate echogenic foci, TR 4 category. This has significantly decreased in size compared to previous ultrasound from 2.5 cm. I explained that it is common to have thyroid nodules. About 95% of the time these nodules are benign. However if the nodule is > 1 cm in size or suspicious on ultrasound then a fine need aspiration biopsy is recommended. We discussed that a FNAB involves 4-5 passes with a small gauge needle and material obtained is sent off for cytology.If the cytopathology is benign then the nodule will be followed annually with repeat ultrasounds. However if it is suspicious or malignant, we will need to discuss further management. Indeterminate cytology can be further investigated with repeat FNA, genetic testing or empiric lobectomy. Malignant cytology is managed with either lobectomy or total thyroidectomy. We discussed briefly that thyroid cancer is, in most patients, an indolent disease that does not affect mortality. We will arrange for FNA of the left superior 1.5 cm thyroid nodule at next available opening and patient will follow up with me in clinic thereafter for results and further decision making. She does not have any significant compressive symptoms. Normal TSH from December 2024. Plan: -scheduled for FNA of the left superior 1.5 cm thyroid nodule and a follow up 2 weeks after to discuss results (2) Paraganglioma: Code(s): D44.7 - Neoplasm of uncertain behavior of aortic body and other paraganglia Category: Medical Plan: 69-year-old female with a history of left neck paraganglioma status post resection in March 2024 who did well postoperatively. Prior to resection no metanephrine normetanephrine levels were tested. She does not have any history of episodic palpitations, any history of adrenal crisis. She did have a CT abdomen from June 2023 which I reviewed today, which showed slightly full or bilateral Apri adrenal glands but no nodules appreciated. No strong family history of paraganglioma/pheochromocytoma. I will check her chromogranin a levels as well as plasma metanephrine and normetanephrine levels. The paraganglioma was most likely nonsecretory given that she did well postoperatively and did not require any alpha block at before exam. However patients with a history of head and neck paragangliomas, we have to think about underlying genetic syndromes, such as SDHD, SDHB mutations. At this time I will do secreting retesting but in the near future we will also discuss surveillance imaging. Plan: -ordered plasma metanephrine, normetanephrine levels -ordered chromogranin a levels Plan I spent 60 minutes in reviewing the record, seeing the patient and documenting in the medical record. Orders: Orders Metanephrines, Plasma Today D44.7 - Neoplasm of uncertain behavior of aortic body and other paraganglia US biopsy thyroid Today E04.2 - Nontoxic multinodular goiter Chromogranin A Today D44.7 - Neoplasm of uncertain behavior of aortic body and other paraganglia Patient Instructions: do blood work We will book you for a biopsy of your thyroid nodules and a follow up after in clinic to discuss results Coding Level of Care Code New Pt Level 5 (30401) Diagnoses Multinodular goiter E04.2 Paraganglioma D44.7 Time Spent (min) 60
== END 2025-03-18 09:48 | disposition home or self-care (01) ==
LOC: HO.ENCR 08:10
PROVIDERS: PCP Internal Medicine; Visit Provider Student in an Organized Health Care Education/Training Program
DX: D44.7 Neoplasm of uncertain behavior of aortic body and other paraganglia (principal); E04.2 Nontoxic multinodular goiter
CPT/HCPCS: 99205

== ENCOUNTER 2025-03-18 08:09 | Outpatient (REF) | payer MEDICARE, SELFPAY ==
[2025-03-24 07:53] LABS: Metanephrine, Free 31 pg/mL (<=57); Normetanephrines, Free 57 pg/mL (<=148); Total Metanephrine, Free 88 pg/mL (<=205)
== END 2025-03-18 08:10 | disposition home or self-care (01) ==
LOC: HO.LAB 08:09
PROVIDERS: PCP Internal Medicine; Visit Provider Student in an Organized Health Care Education/Training Program
DX: E04.2 Nontoxic multinodular goiter (principal); D44.7 Neoplasm of uncertain behavior of aortic body and other paraganglia; Z79.899 Other long term (current) drug therapy
CPT/HCPCS: 36415; 83835; 86316; 99202

== ENCOUNTER 2025-03-25 07:39 | Outpatient (REF) | payer MEDICARE, SELFPAY ==
--- NOTE | ~2025-03-25 | MM_ITS ---
EXAMINATION: MM DIAGNOSTIC DIGITAL BREAST TOMOSYNTHESIS, RIGHT CLINICAL INFORMATION: Callback from screening for asymmetry in the right axilla. COMPARISON: Comparison made to multiple prior, most recent February 01, 2025, and most remote September 30, 2017. TECHNIQUE: Digital breast tomosynthesis is performed in MLO view along with computer-aided detection (CAD). Synthesized 2D images are generated from the tomosynthesis. Spot compression, the images were also obtained. FINDINGS: BREAST COMPOSITION: There are scattered areas of fibroglandular density (ACR BI-RADS breast composition Category b). RIGHT BREAST: Previously suggested asymmetry in the right axilla appears to represent part of the axillary lymph node that has been present in prior studies as far back as 2018. No suspicious features. MM/MM tomosynthesis added views R IMPRESSION: RIGHT BREAST: Benign, no mammographic evidence of malignancy. Patient may return to routine screening mammogram in 12 months. ASSESSMENT: BI-RADS 2 - Benign Findings RECOMMENDATION: 1 year F/U Results were provided to the patient at time of visit by the technologist. This patient's information was entered into a reminder system with a target due date for their next mammogram. Electronically signed by: Renata Ryan MD 03/25/2025 08:48 AM EDT
--- OUTSIDE RECORDS SUMMARY | 2025-03-25 07:42 | XMS_ITS | Patient Health Record ---
[facility] Address [address] [place] [address] Care Team Providers Care Data Warehouse Developer Name Role Phone Sharon Fleming MD Primary Care Provider Unavaila paolo Mills Elvira Unavailable [phone] Allergies Allergen (clinical drug ingredient) Drug/Non Drug [...] Problem Acquired hammer toe of right foot (3207837386236863) Other hammer toe(s) (acquired), right foot (M20.41) Active confirmed Problem Acquired hallux valgus (34164790) Hallux valgus (acquired), left foot (M20.12) Active confirmed Problem Acquired hammer toe of left foot (1660269858740428) Other hammer toe(s) (acquired), left foot (M20.42) Active confirmed Problem Plantar wart (06440058) Plantar wart (B07.0) Active confirmed Problem Localized, primary osteoarthritis of the ankle and/or foot (499573635) Primary osteoarthrit is, right ankle and foot (M19.071) Active confirmed Problem Acquired hallux valgus (63847566) Hallux valgus (acquired), right foot (M20.11) Active confirmed Vital Signs Blood pressure diastolic 80 mm Hg 12/16/2024 Height 5ft1in in 12/16/2024 Blood pressure systolic 130 mm Hg 12/16/2024 Weight 145 lbs 12/16/2024 BMI 27.39 kg/m2 12/16/2024 Procedures Procedure Date Ordered Date Performed Result Body Sit e 02676-UUQLQAZ NAIL, 6 OR MORE 04/19/2024 N/A 60921-Lnzwaoqf Plate 04/19/2024 N/A 73544-RQHEVTT NAIL, 6 OR MORE 08/19/2024 N/A 75996-HNCSWOX NAIL, 6 OR MORE 12/16/2024 N/A 36168-Enpkfqxl Plate 12/16/2024 N/A 27698-Lapkzwjn Plate Each Additional 12/16/2024 N/A Encounters Encounter Location Date Provider Diagnosis [address] [address] 04/19/2024 Elvira Black Tinea unguium B35.1 ; Ingrowing nail L60.0 ; Pain in right toe(s) M79.674 and Pain in left toe(s) M79.[address] [address] 08/19/2024 Elvira Black Tinea unguium B35.1 ; Xerosis of skin L85.3 ; Pain in right toe(s) M79.674 and Pain in left toe(s) M79.[address] [address] 12/16/2024 Elvira Black Xerosis of skin L85.3 [...] Treatment Pending Test Test Name Order Date 08650-QAXEOOI NAIL, 6 OR MORE 04/13/2020 89530-SCOIXDQ NAIL, 6 OR MORE 07/13/2020 42761-RFLASXO NAIL, 6 OR MORE 11/20/2020 65769-AHELVWT NAIL, 6 OR MORE 03/22/2021 88840-WIMCGRQ NAIL, 6 OR MORE 07/23/2021 41703-FSNIGEN NAIL, 6 OR MORE 11/26/2021 70167-EKCLNWF NAIL, 6 OR MORE 03/25/2022 54709-ERQRIYG NAIL, 6 OR MORE 07/22/2022 94368-QLQHMTD NAIL, 6 OR MORE 02/03/2023 69887-LGXYQIG NAIL, 6 OR MORE 08/11/2023 00563-JSTHEJN NAIL, 6 OR MORE 04/19/2024 06445-CLFNXWA NAIL, 6 OR MORE 08/19/2024 19381-WSJNEYB NAIL, 6 OR MORE 12/16/2024 83698-Inqm Destruction, 1-14 08/11/2023 45158-Ubvufdsq Plate 04/19/2024 63495-Uasbhfet Plate 03/25/2022 75103-Dqvpjhra Plate 07/23/2021 41865-Vzqioxaz Plate 03/23/2020 11967-Kohcfdgb Plate 03/22/2021 41904-Sysvztyv Plate 02/03/2023 41637-Shqxetbd Plate 12/16/2024 80969-Nccnkxvo Plate Each Additional 26997-Couuitfv Plate Each Additional 12/2022 36018- Debride <25 sq cm 04/13/2020 Next Appt Details Provider Name:Elvira Mills , 04/18/2025 09:15:00 AM, [address] [place], [address], Insurance Providers Payer Name Payer Address Payer Phone Subscriber Number Group Number Insured Name Patient Relationship to Insured Coverage Start Date Coverage End Date [facility] 65 Medicare Preferred [address] [place] [address] [phone] [id number] Lakesha Betancourt Self - patient is the insured Medical (General) History Medical History History ICD Code Back,Hip,and Knee pain Cataracts crown on big tooth Back pain Surgical History Surgery Date(Month/Year) cataract-lens [place] [facility] [place]24 Hospitalization History Reason Date(Month/Year[place] [facility] [place] Severe [place] 06/23
== END 2025-03-25 07:40 | disposition home or self-care (01) ==
LOC: HO.MAMMO 07:39
PROVIDERS: PCP Internal Medicine; Visit Provider Internal Medicine
DX: N64.89 Other specified disorders of breast (principal)
CPT/HCPCS: 77061; 77065

== ENCOUNTER → 2025-03-25 08:00 | Outpatient (BNV) | payer MEDICARE, SELFPAY | PROVIDERS: PCP Internal Medicine; Visit Provider Radiology Body Imaging | DX: R92.8 Other abnormal and inconclusive findings on diagnostic imaging of breast (principal) | CPT/HCPCS: 77065; G0279 ==

== ENCOUNTER 2025-04-06 07:43 | Outpatient (REF) | payer MEDICARE, SELFPAY ==
--- OUTSIDE RECORDS SUMMARY | 2025-04-06 07:45 | XMS_ITS | Patient Health Record ---
[facility] Address [address] [place] [address] Care Team Providers Care Associate Financial Planner Name Role Phone Sharon Fleming MD Primary Care Provider Unavaila paolo Mills Elvira Unavailable [phone] Allergies Allergen (clinical drug ingredient) Drug/Non Drug [...] Problem Acquired hammer toe of right foot (0125126930367083) Other hammer toe(s) (acquired), right foot (M20.41) Active confirmed Problem Acquired hallux valgus (43852596) Hallux valgus (acquired), left foot (M20.12) Active confirmed Problem Acquired hammer toe of left foot (7467807564845935) Other hammer toe(s) (acquired), left foot (M20.42) Active confirmed Problem Plantar wart (84570302) Plantar wart (B07.0) Active confirmed Problem Localized, primary osteoarthritis of the ankle and/or foot (503211374) Primary osteoarthrit is, right ankle and foot (M19.071) Active confirmed Problem Acquired hallux valgus (40523692) Hallux valgus (acquired), right foot (M20.11) Active confirmed Vital Signs Blood pressure diastolic 80 mm Hg 12/16/2024 Height 5ft1in in 12/16/2024 Blood pressure systolic 130 mm Hg 12/16/2024 Weight 145 lbs 12/16/2024 BMI 27.39 kg/m2 12/16/2024 Procedures Procedure Date Ordered Date Performed Result Body Sit e 72244-CQOQGWF NAIL, 6 OR MORE 04/19/2024 N/A 53223-Jfetjxdb Plate 04/19/2024 N/A 12614-JHPSNPQ NAIL, 6 OR MORE 08/19/2024 N/A 92454-UKWAKYE NAIL, 6 OR MORE 12/16/2024 N/A 09725-Colkogbw Plate 12/16/2024 N/A 81468-Ssmeiorj Plate Each Additional 12/16/2024 N/A Encounters Encounter Location Date Provider Diagnosis [address] [address] 04/19/2024 Elvira Black Tinea unguium B35.1 ; Ingrowing nail L60.0 ; Pain in right toe(s) M79.674 and Pain in left toe(s) M79.[address] [address] 08/19/2024 Elvira Black Tinea unguium B35.1 ; Xerosis of skin L85.3 ; Pain in right toe(s) M79.674 and Pain in left toe(s) M79.[address] [address] 12/16/2024 Elvira Black Xerosis of skin L85.3 [...] Treatment Pending Test Test Name Order Date 19495-VTOAOZK NAIL, 6 OR MORE 04/13/2020 83048-LOFTERC NAIL, 6 OR MORE 07/13/2020 12242-BBMYLDU NAIL, 6 OR MORE 11/20/2020 59767-MFLPLSL NAIL, 6 OR MORE 03/22/2021 06307-MIPPJBB NAIL, 6 OR MORE 07/23/2021 94651-XXOEHGB NAIL, 6 OR MORE 11/26/2021 77253-NLALAYL NAIL, 6 OR MORE 03/25/2022 64326-UPUUEJF NAIL, 6 OR MORE 07/22/2022 26796-ACSEIQE NAIL, 6 OR MORE 02/03/2023 61882-VCXZKUR NAIL, 6 OR MORE 08/11/2023 06624-ZCOBAFB NAIL, 6 OR MORE 04/19/2024 74400-HJDZSAU NAIL, 6 OR MORE 08/19/2024 80232-SNIDABF NAIL, 6 OR MORE 12/16/2024 13642-Ywol Destruction, 1-14 08/11/2023 71016-Iglliabt Plate 04/19/2024 96460-Snudhjtr Plate 03/25/2022 27253-Glyiawkc Plate 07/23/2021 32913-Hzcoifyt Plate 03/23/2020 90888-Fkqkqlfp Plate 03/22/2021 54508-Hfifotgg Plate 02/03/2023 75719-Wentsrbm Plate 12/16/2024 66255-Jgjdfkce Plate Each Additional 97751-Ezyyqkon Plate Each Additional 12/2022 37314- Debride <25 sq cm 04/13/2020 Next Appt Details Provider Name:Elvira Mills , 04/18/2025 09:15:00 AM, [address] [place], [address], Insurance Providers Payer Name Payer Address Payer Phone Subscriber Number Group Number Insured Name Patient Relationship to Insured Coverage Start Date Coverage End Date [facility] 65 Medicare Preferred [address] [place] [address] [phone] [id number] Lakesha Betancourt Self - patient is the insured Medical (General) History Medical History History ICD Code Back,Hip,and Knee pain Cataracts crown on big tooth Back pain Surgical History Surgery Date(Month/Year) cataract-lens implants [facility] [facility] [place] 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
--- NOTE | 2025-04-06 08:37 | PM.PROC ---
Brief Operative Note Date of procedure: 04/06/25 Pre-op diagnosis: left superior 1.5 cm thyroid nodule FNA biopsy Post-op diagnosis: same Procedure: THYROID FINE NEEDLE ASPIRATION PROCEDURE NOTE ? PROCEDURE PERFORMED: Ultrasound-guided FNA of thyroid nodule ? OPERATORS: Dr. Brenda Simon ? INDICATION: left superior 1.5 cm thyroid nodule ; FNA performed to assess for malignancy ? DESCRIPTION OF PROCEDURE: The indications for FNA (to assess for malignancy) were reviewed with the patient in detail. Potential complications (e.g., bleeding, infection, damage to local structures, absence of clear diagnosis after FNA) were reviewed. Alternatives to FNA including conservative observation or surgery were described. The patient understood and agreed to proceed. This was documented by the signing of the written informed consent form. A time-out was performed to confirm the patient's identity and the site of planned FNA. The nodule of interest was identified using ultrasound (14 MHz linear array probe). The site of FNA was then draped in the usual fashion and carefully cleaned and prepared using alcohol swabs. The skin at the previously-identified site of needle insertion was iced and sprayed with numbing spray. Under ultrasound guidance, __5 passes were performed using a 1.5-inch, 25-gauge needle, and sample was obtained via capillary action. The needle tip was clearly visualized to be within the nodule at the time of sampling for _5_ of 5__ passes. The patient tolerated the procedure well. There were no immediate complications. A small adhesive bandage was applied, and the patient was advised to take acetaminophen (rather than NSAIDs) for any discomfort and to report any signs of inflammation/infection or marked swelling. IMPRESSION: Technically successful ultrasound-guided fine needle aspiration of left superior 1.5 cm thyroid nodule FNA biopsy . PLAN: The patient was advised that I will provide follow-up regarding the cytology result and any subsequent plans. Brenda Simon MD Endocrinology Attending Condition: stable Disposition: same day
== END 2025-04-06 07:44 | disposition home or self-care (01) ==
LOC: HO.US 07:43
PROVIDERS: PCP Internal Medicine; Visit Provider Student in an Organized Health Care Education/Training Program
DX: E04.2 Nontoxic multinodular goiter (principal)
CPT/HCPCS: 10005; 88173

== ENCOUNTER → 2025-04-06 07:43 | Outpatient (BNV) | payer MEDICARE, SELFPAY | PROVIDERS: PCP Internal Medicine; Visit Provider Student in an Organized Health Care Education/Training Program | DX: E04.1 Nontoxic single thyroid nodule (principal) | CPT/HCPCS: 10005 ==

== ENCOUNTER 2025-04-20 13:57 | Outpatient (AMB) | payer MEDICARE, SELFPAY ==
[2025-04-20 14:00] VITALS: BP 142/74; PULSE 77; O2SAT 98; BMI 29.5
--- NOTE | 2025-04-20 14:00 | MHC.OFFVIS ---
Vital Signs 04/20/25 14:00 Height 5 ft 1 in Weight 156 lb 1.396 oz BMI 29.5 BP 142/74 H Blood Pressure Location Lt brachial Position Sitting Pulse 77 Pulse Source Pulse Oximeter Pulse Oximetry (%) 98 Oxygen Delivery Method Room Air Intake Visit Reasons: Biopsy Results Intake Note: Patient present today for biopsy results. User Support Analyst Required: No Accompanied by: Self / Same As Patient Allergies acetaminophen (Percocet) Adverse Reaction (Unknown, Verified 04/20/25 14:06) nausea oxycodone (Percocet) Adverse Reaction (Unknown, Verified 04/20/25 14:06) nausea Medication List - Last Reconciled 04/20/25 by Brenda Simon MD cholecalciferol (vitamin D3) 250 mcg PO DAILY lactobacillus combination no.4 (Probiotic) 3,000 mmu cells PO DAILY magnesium 200 mg PO BEDTIME vitamin B complex 1 tab PO DAILY HPI Comments Details: 69-year-old female coming in today for initial evaluation of nontoxic multinodular goiter. 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 This has significantly decreased in size compared to previous ultrasound from 2.5 cm. Patient currently denies heat or cold intolerance, diarrhea or constipation, hair loss, palpitation, anxiety, weight changes, mood changes, low energy, changes in appearance of eyes or vision changes, tremors, increased diaphoresis or dry skin. ? Patient denies any difficulty swallowing, pain on swallowing or difficulty breathing. Intermittent hoarseness Patient denies any history of childhood neck radiation. Denies having ever used lithium, amiodarone. takes biotin supplements Patient denies any family history of thyroid cancer or thyroid disease. Interval history 04/06/2025: Status post FNA of the left superior 1.5 cm nodule which came back as nondiagnostic. Byron category 1. However while I was doing the ultrasound during the biopsy this looked like a mixed cystic solid nodule, hypoechoic, TR 3 category. We will hold on on repeating the biopsy for now. Would plan on ultrasound surveillance. 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 This ultrasound also showed multiple thyroid nodules, hair multiple nodules were seen which met criteria for biopsy especially the left lower 2.5 cm TR 4 nodule. However this shrunk on the mostly this ultrasound in March 2025. 01/20/2024: CT soft tissue neck also showed the mass consistent most likely with a paraganglioma measuring 3.6 X2.5 X 5 cm. Located at the left angle of the mandible. s/p resection 03/15/24 : with Dr. Agosto vascular surgeon , path consistent with paraganglioma No family history of pheochromocytoma or paragangliom No sudden in the family no excessive anxiety No episodic symptims except once in a while she will get hot flashes, palpitations she has had a CT scan of abd in Jun 2023 [facility] showed slight pizarro but normal adrenal glands Interval history 03/18/2025: Normal plasma metanephrine normetanephrine levels Physical exam General: sitting comfortably in no acute distress HEENT: normocephalic/atraumatic, Neck: supple, palpable 1 cm right-sided nodule, palpable 1 cm left-sided nodule Cardiac: normal heart sounds Pulm: normal breath sounds B/L, no added breath sounds Abd: not distended, no tenderness Extremities: no edema, no signs of myxedema Laboratory Tests 12/16/24 09:15 TSH 1.31 Laboratory Tests 03/18/25 10:01 Plasma Free Metaneph 31 Plasma Free Normeta 57 Plas Total Metaneph 88 Laboratory Tests 03/18/25 10:01 Chromogranin A 117 US THYROID 03/07/25 CLINICAL INFORMATION: Nontoxic Multinodular goiter. COMPARISON: 06/22/2024 TECHNIQUE: Linear transducer grayscale and color Doppler examination with attention to the region of the thyroid. FINDINGS: SIZE: Measurements of the thyroid lobes and nodules are given in sagittal, anteroposterior and transverse dimensions respectively. Right Thyroid Lobe: 5.9 x 3.4 x 1.7 cm, volume 17.8 mL. (Previously 13.7 mL) Parenchyma: The gland echotexture is heterogeneous. Thyroid vascularity is normal. Left Thyroid Lobe: 5.2 x 2.2 x 1.6 cm, volume 9.5 mL. (Unchanged) Parenchyma: The gland echotexture is heterogeneous. Thyroid vascularity is normal. Isthmus: 0.6 cm in maximum AP dimension. Estimated total number of nodules greater than or equal to 1 cm: 4. 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 Location: Right upper pole. Size: 1.3 x 0.7 x 1.1 cm, volume 0.5 mL. (Previously 0.57 mL) Nodule characteristics: Composition: Spongiform (0). ACR TI-RADS total points: 0 ACR TI-RADS category: 1 (previously categorized as TR category 4) 2. Location: Right mid pole. Size: 0.6 x 0.5 x 0.45 cm, volume 0.08 mL. (Previously not seen) Nodule characteristics: Composition: Solid (2). Echogenicity: Isoechoic (1). Shape: Taller than wide (3). Margins: Smooth (0). Echogenic Foci: None (0). ACR TI-RADS total points: 6 ACR TI-RADS category: 4 (new from prior). 3. Location: Left upper pole. Size: 1.5 x 1.1 x 1.2 cm, volume 1.1 mL. (Previously 0.57 mL) Nodule characteristics: Composition: Mixed cystic and solid (1). Echogenicity: Very hypoechoic (3). Shape: Not taller than wide (0). Margins: Smooth (0). Echogenic Foci: None (0). ACR TI-RADS total points: 4 ACR TI-RADS category: 4 4. Location: [Mid pole laterally. Size: 0.9 x 1.0 x 0.7 cm, volume 0.30 mL. (Previously not seen) Nodule characteristics: Composition: Spongiform (0). ACR TI-RADS total points: 0 ACR TI-RADS category: 1 5. Location: Left upper pole. Size: 1.4 x 1.1 x 1.1 cm, volume 0.9 mL. (Previously 2.5 mL) Nodule characteristics: Composition: Solid (2). Echogenicity: Isoechoic (1). Shape: Not taller than wide (0). Margins: Smooth (0). Echogenic Foci: Punctate echogenic foci (3). ACR TI-RADS total points: 6 ACR TI-RADS category: 4 (previously categorized as TR category 4) NODES: No lymphadenopathy is seen in the tissue surrounding the thyroid gland. US/US thyroid IMPRESSION: 1. There is a new 0.7 cm TR category 4 nodule in the right mid pole. No follow-up recommended. 2. There is a 1.5 cm TR category 4 nodule in the left upper pole, increased significantly in size (0.57 mL to 1.1 mL). FNA advised. 3. There is a 1.4 cm TR category 4 nodule in the left upper pole, significantly decreased in size suggesting benignity. Follow-up advised. 4. There are spongiform nodules in the right upper pole, and left midpole laterally. No follow-up recommended. 5. Thyroid parenchyma is heterogeneous suggesting thyroiditis. US THYROID 01/05/24 CLINICAL INFORMATION: Multinodular thyroid goiter. COMPARISON: None available. TECHNIQUE: Linear transducer grayscale and color Doppler examination with attention to the region of the thyroid. FINDINGS: SIZE: Measurements of the thyroid lobes and nodules are given in sagittal, anteroposterior and transverse dimensions respectively. Right Thyroid Lobe: 4.9 x 2.8 x 1.9 cm, volume 13.7 mL. Parenchyma: The gland echotexture is heterogeneous. Thyroid vascularity is normal. Left Thyroid Lobe: 2.4 x 2.4 x 1.9 cm, volume 5.71 mL. Parenchyma: The gland echotexture is heterogeneous. Thyroid vascularity is normal. Isthmus: 0.8 cm in maximum AP dimension. Estimated total number of nodules greater than or equal to 1 cm: 5. 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 Location: Right mid. Size: 2.4 x 2.4 x 1.9 cm, volume 5.71 mL. Nodule characteristics: Composition: Solid/almost completely solid (2). Echogenicity: Isoechoic (1). Shape: Taller than wide (3). Margins: Ill-defined (0). Echogenic Foci: None (0). ACR TI-RADS total points: 6 ACR TI-RADS category: 4 2. Location: Right lower pole medial. Size: 1.4 x 1.1 x 1.3 cm, volume 0.98 mL. Nodule characteristics: Composition: Solid (2). Echogenicity: Hypoechoic (2). Shape: Not taller than wide (0). Margins: Ill-defined (0). Echogenic Foci: Punctate echogenic foci (3). ACR TI-RADS total points: 7 ACR TI-RADS category: 5 3. Location: Left upper. Size: 1.2 x 0.9 x 1.0 cm, volume 0.57 mL. Nodule characteristics: Composition: Solid/almost completely solid (2). Echogenicity: Hypoechoic (2). Shape: Not taller than wide (0). Margins: Smooth (0). Echogenic Foci: Macrocalcifications (1). ACR TI-RADS total points: 5 ACR TI-RADS category: 4 4. Location: Left lower isthmus. Size: 1.3 x 0.7 x 1.1 cm, volume 0.52 mL. Nodule characteristics: Composition: Solid/almost completely solid (2). Echogenicity: Isoechoic (1). Shape: Not taller than wide (0). Margins: Ill-defined (0). Echogenic Foci: None (0). ACR TI-RADS total points: 3 ACR TI-RADS category: 3 5. Location: Left lower. Size: 2.5 x 1.3 x 1.5 cm, volume 2.55 mL. Nodule characteristics: Composition: Solid/almost completely solid (2). Echogenicity: Isoechoic (1). Shape: Not taller than wide (0). Margins: Ill-defined (0). Echogenic Foci: Macrocalcifications (1). ACR TI-RADS total points: 4 ACR TI-RADS category: 4 NODES: There is a 5.5 x 2.7 x 4.4 cm heterogeneous, hypoechoic complex solid mass with extensive internal vascularity in the left neck at level 2. Differential considerations include abnormal lymph node, carotid body tumor or other neck mass. MRI recommended for further evaluation. US/US thyroid IMPRESSION: 1. Multinodular thyroid gland. Evaluation limited as difficult to discern precise nodule margins. Left lower 2.5 cm TR 4 nodule, right mid to 0.4 cm TR 4 nodule and right lower 1.4 cm TR 5 nodule meet criteria for biopsy. Fine-needle aspiration of at least the largest 2 nodules recommended. 2. A 5.5 cm heterogeneous, hypoechoic complex solid mass with extensive internal vascularity in the left neck at level 2. Differential considerations include abnormal lymph node, carotid body tumor or other neck mass. MRI recommended for further evaluation. This study was presented today January 07, 2024 for interpretation. PSA staff will provide results to referring provider at this time. CT SOFT TISSUE NECK WITH CONTRAST 01/20/24 CLINICAL INFORMATION: Localized swelling, mass and lump, neck. COMPARISON: Thyroid ultrasound 01/05/2024 TECHNIQUE: Following the intravenous administration of 60 mL of Omnipaque 350 intravenous contrast, helical imaging was performed in the axial plane with generation of coronal and sagittal reformatted images. This CT examination was performed using dose optimization techniques as appropriate, variously including the following: *Automated exposure control *Adjustment of mA and/or kV according to patient size (this includes techniques or standardized protocols for targeted exams where dose is matched to indication/reason for exam; i.e. extremities or head) *Use of iterative reconstruction technique DLP: 270 mGy-cm FINDINGS: A 3.6 cm X 2.5 cm X5 0.0 cm (AP X lateral X SI) strongly enhancing lesion with mild heterogeneous enhancement resides in the region of the left carotid space partially splaying the internal and external carotid arteries and projecting posteromedial to the carotid bifurcation. The lesion is without associated calcification or adjacent inflammatory changes. Elsewhere in the neck, no lymphadenopathy is identified. The mass above corresponds to the heterogeneous, hypoechoic complex solid mass with extensive internal vascularity noted on the comparison thyroid ultrasound of 01/05/2024. The thyroid demonstrates bilateral low density nodules measuring up to approximately 11 mm in maximum dimension. A single dominant nodule measuring 11 mm in dimension is present anteriorly within the middle segment of the right lobe of the thyroid. A 7 mm low-density nodule is dominant within the right lobe of the thyroid within the middle segment laterally. Within the incidentally visualized intracranial structures, no abnormalities are identified though this examination is not tailored for optimal visualization of intracranial structures. Bilateral ocular lens replacements are noted. The mass above results in mild extrinsic rightward deformation of the pharynx. The larynx and pharynx are otherwise normal in appearance. The parotid, submandibular and visualized sublingual glands are normal in appearance. Multifocal dental amalgam is present and gives rise to scattering artifact partially obscuring visualization of adjacent transaxial structures. Mild scattered calcific plaques are present within the transverse aorta. Minimal calcific plaque is noted within the left carotid bulb. The incidentally visualized lung apices are clear. Minimal opacification of mastoid air cells at the mastoid tip is noted on the left and are of uncertain clinical significance. The remainder the paranasal sinuses, mastoid air cells and middle ear cavities are clear. Moderate posterior endplate disc-osteophyte complexes are partially visualized at C4-C5 and C5-C6. CT/CT soft tissue neck w IV con IMPRESSION: 1. Single 3.6 cm X 2.5 cm X 5.0 cm (AP X lateral X SI) mass in the region of the left carotid bifurcation with extensive internal vascularity corresponding to the mass noted on the comparison thyroid ultrasound of 01/05/2024 located the at the level of the left angle of the mandible. 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 No additional cervical lymphadenopathy identified. The differential diagnosis includes a carotid sheath schwannoma or enhancing lymph node. The location of this lesion with splaying of the carotid bulb is suggestive of a carotid body paraganglioma. Consider further evaluation with unenhanced and IV contrast-enhanced MRI of the neck which may reveal signal characteristics for a specific tumor entity and may better delineate the precise location of adjacent vascularity. 2. Multiple bilateral thyroid nodules measuring up to 11 mm in maximum dimension. The dominant nodule is present within the middle segment of the right lobe of the thyroid measuring 11 mm in maximum dimension. As noted on the comparison thyroid ultrasound of 01/05/2024 bilateral thyroid nodules on the basis of their sonographic characteristics warrant histologic sampling. Please refer to the examination of 01/05/2024 for related findings and impressions. 3. Partially visualized moderate posterior endplate disc-osteophyte complexes at C4-C5 and C5-C6. CT ABDOMEN AND PELVIS WITH CONTRAST Jun 2023 CLINICAL INFORMATION: Abdominal pain COMPARISON: None available. TECHNIQUE: Multidetector volumetric images were obtained from the superior aspect of the liver through the pubic symphysis following administration 85 mL of Omnipaque 350 intravenous contrast. Sagittal and coronal reformatted images were obtained on the technologist's workstation. This CT examination was performed using dose optimization techniques as appropriate, variously including the following: *Automated exposure control *Adjustment of mA and/or kV according to patient size (this includes techniques or standardized protocols for targeted exams where dose is matched to indication/reason for exam; i.e. extremities or head) *Use of iterative reconstruction technique DLP: 427 mGy-cm FINDINGS: Visualized lung bases are well aerated. The liver is mildly enlarged. There are a few subcentimeter hypodense foci within the liver which are too small to accurately characterize but statistically cysts. The gallbladder is normal in appearance. There is mild fatty atrophy of the pancreas. The spleen is normal in size. Small anterior splenule. The adrenal glands are unremarkable. Symmetrically enhancing kidneys. Bilateral parapelvic cysts are noted, more prominent within the left kidney. There is no hydronephrosis of either kidney. Normal caliber loops of small and large bowel. Normal appendix. There is circumferential mucosal thickening of the distal sigmoid colon and rectum with associated perirectal fat stranding. Small amount of free pelvic fluid is noted. Normal caliber abdominal aorta demonstrating mild atherosclerotic disease. Refluxing nondilated left ovarian vein noted. No retroperitoneal lymphadenopathy. Small fat-containing umbilical hernia. The bladder is normal in appearance. Coarsely calcified fibroid noted within an otherwise unremarkable appearing uterus. No inguinal lymphadenopathy. Mild diffuse degenerative changes of the spine. CT/CT abdomen pelvis w IV con IMPRESSION: Circumferential mucosal thickening of the distal sigmoid colon and rectum with associated perirectal fat stranding. 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 Fleischner guidelines were followed. [facility] Medical History (Updated 03/18/25 @ 09:12 by Brenda Simon MD) Paraganglioma Multiple thyroid nodules Enlarged thyroid Arthritis Back pain Thalassanemia Colon cancer screening Normal breast exam Vitamin D deficiency Hyperlipidemia Thrombocytopenia Annual physical exam Surgical History Hx of tonsillectomy Hx of right knee surgery Hx of cataract surgery Hx of section Family History Father No problems noted. Mother Diabetes Hypertension Stroke Social History Household Members: None Housing: House Are you a primary dialysis patient care technician to a significant other at home: No Do you presently have visiting nurse or other home services: No Alcohol intake: current Alcohol intake frequency: 0-2 drinks per day Patient Tobacco Use Status: Former Tobacco user Years Smoked: 20 years e-Cigarette/Vaping Use: Never Used service: No Current occupational status: retired Cognitive needs: No Hearing needs: No Vision needs: No Physical Exam Vital Signs: Last Vital Signs Pulse 77 04/20/25 14:00 BP 142/74 H 04/20/25 14:00 Pulse Ox 98 04/20/25 14:00 Oxygen Delivery Method Room Air 04/20/25 14:00 BMI result Body Mass Index 29.5 Assessment & Plan Assessment & Plan (1) Paraganglioma: Code(s): D44.7 - Neoplasm of uncertain behavior of aortic body and other paraganglia Category: Medical Plan: 69-year-old female with a history of left neck paraganglioma status post resection in March 2024 who did well postoperatively. Prior to resection no metanephrine normetanephrine levels were tested. She does not have any history of episodic palpitations, any history of adrenal crisis. She did have a CT abdomen from June 2023 which I reviewed today, which showed slightly full bilateral adrenal glands but no nodules appreciated. No strong family history of paraganglioma/pheochromocytoma. 03/18/2025 showed normal plasma metanephrine normetanephrine levels plus normal chromogranin a levels. This is reassuring that the paraganglioma was most likely nonsecretory. Also given that she did well postoperatively and did not require any alpha block at before exam. However patients with a history of head and neck paragangliomas, we have to think about underlying genetic syndromes, such as SDHD, SDHB mutations. Germline testing is recommended so that if mutations are detected pick and help guide surveillance imaging for both patient as well as screening for family members. I will refer her to [facility] genetics for germline testing for paraganglioma/pheochromocytoma. Plan: -referral placed to [facility] for germline testing for paraganglioma/pheochromocytoma (2) Multinodular goiter: Code(s): E04.2 - Nontoxic multinodular goiter Category: Medical Plan: 69-year-old female with no family history of thyroid cancer, with no personal history of head or neck radiation who is coming in today to establish care for nontoxic multinodular goiter. She had an ultrasound done initially in December 2023 due to left neck mass which showed multiple thyroid nodules. At that time she was found to have a left level 25.5 cm carotid body tumor as mentioned below, status post resection March 2024 which turned out to be a paraganglioma. She did well postoperatively. Most recent thyroid ultrasound repeated March 2025, I reviewed the images myself which showed a right superior 1.3 cm spongiform nodule, her right midpole 0.6 cm solid isoechoic taller than wide TR 4 category nodule, a left superior 1.5 cm mixed cystic solid very hypoechoic TR 4 category nodule which has increased significantly in size, a left mid pole 0.9 cm spongiform nodule, another left inferior 1.4 cm solid isoechoic nodule with punctate echogenic foci, TR 4 category. This has significantly decreased in size compared to previous ultrasound from 2.5 cm. 04/06/2025: Status post FNA of the left superior 1.5 cm nodule which came back as nondiagnostic. Byron category 1. However while I was doing the ultrasound during the biopsy this looked like a mixed cystic solid nodule, hypoechoic, TR 3 category. We will hold on on repeating the biopsy for now. Would plan on ultrasound surveillance. At this point I discussed with her that we will plan to repeat an ultrasound in 1 year. She does not have any significant compressive symptoms. Normal TSH from December 2024. Plan: -ordered thyroid ultrasound to be done in March 2026 with follow up in April 2026 -ordered TSH with a reflex free T4 to be done prior to follow up in 1 year in April 2026 Plan See above Orders: Orders TSH reflex Free T4 03/13/26 E04.2 - Nontoxic multinodular goiter US thyroid 03/13/26 E04.2 - Nontoxic multinodular goiter Referrals Genetics Referral D44.7 - Neoplasm of uncertain behavior of aortic body and other paraganglia Coding Level of Care Code Est Pt Level 3 (88801) Diagnoses Paraganglioma D44.7 Multinodular goiter E04.2
--- OUTSIDE RECORDS SUMMARY | 2025-04-20 14:54 | XMS_ITS | Patient Health Record ---
[facility] Address [address] [place] [address] Care Team Providers Care Bundle Clerk Name Role Phone Sharon Fleming MD Primary Care Provider Unavaila Elvira Figueredo Unavailable [phone] Allergies Allergen (clinical drug ingredient) Drug/Non Drug Allergy documented on EMR Reaction Allergy Type Onset Date Status acetaminophen / oxycodone Percocet Unknown Drug Allergy Active Seasonal IC Unknown Drug Allergy Activ e Reason For Referral No Information Medications Medication SIG (Take, Route, Frequency, Duration) Notes Start Date End Date Status Multivitamin Active Magnesium Active Biotin Active Ammonium Lactate 12 % 1 application Externally to affected areas of dry skin to feet except for between the toes Twice a day; Duration: 30 days Active Vitamin B Complex Ac tive Formula 7 The Solution 1 % 1 application Externally Once a day Active Hair Skin Nails - as directed Orally Not-Taking Vitamin D3 Active Probiotic Active Immunizations Vaccine Route Administration Date Status Comme nts Influenza Unknown 04/18/2025 Refused Social History Tobacco Use: Social History Observation [...] (Standard) Question Answer Notes Tobacco use: Nonsmoker AUDIT-C (Standard) Question Answer Notes Did you have a drink contain ing alcohol in the past year? Yes How often did you have a dri nk containing alcohol in the past year? Monthly or less (1 point) How many drinks did you have on a typical day when you were drinking in the past year? 1 or 2 drinks (0 point) How often did you have six o r more drinks on one occasion in the past year? Less than monthly (1 point) Points 2 Interpretation Negative Problems Problem Type SNOMED Code ICD Code Onset Dates Problem Status W/U Status Risk Notes Problem Acquired hallux rigidus (7391668) Hallux rigidus, right foot (M20.21) Active confirmed Chronic problem, Worse (4) Problem Arthritis (3175347) Arthritis (M19.90) Active confirmed Vital Signs Blood pressure diastolic 80 mm Hg 04/18/2025 Height 5ft1in in 04/18/2025 Blood pressure systolic 128 mm Hg 04/18/2025 Weight 150 lbs 04/18/2025 BMI 28.34 kg/m2 04/18/2025 Procedures Procedure Date Ordered Date Performed Result Body Sit e 04902-ZQIMSOA NAIL, 6 OR MORE 08/19/2024 N/A 10960-RMLRNUF NAIL, 6 OR MORE 12/16/2024 N/A 71120-Uaocexfr Plate 12/16/2024 N/A 05015-Umgkiilj Plate Each Additional 12/16/2024 N/A 51616-HUTETVG NAIL, 6 OR MORE 04/18/2025 N/A Encounters Encounter Location Date Provider Diagnosis [address] [address] 08/19/2024 Elvira Black Tinea unguium B35.1 ; Xerosis of skin L85.3 ; Pain in right toe(s) M79.674 and Pain in left toe(s) M79.[address] [address] 12/16/2024 Elvira Black Xerosis of skin L85.3 ; Ingrown nail L60.0 ; Tinea unguium B35.1 ; Pain in right toe(s) M79.674 and Pain in left toe(s) M79.[address] [address] 04/18/2025 Elvira Black Tinea unguium B35.1 ; Pain in right toe(s) M79.674 ; Pain in left toe(s) M79.675 ; Pain in right foot M79.671 ; Pain in right ankle and joints of right foot M25.571 ; Hallux rigidus, right foot M20.21 and Arthritis M19.90 Assessments Encounter Date Diagnosis (ICD Code) Assessment Notes Treatment Notes Treatment Clinical Notes Section Notes 08/19/2024 Tinea unguium (ICD-10 - B35.1) 12/16/2024 Ingrown nail (ICD-10 - L60.0) 12/16/2024 Xerosis of skin (ICD-10 - L85.3) 04/18/2025 Tinea unguium (ICD-10 - B35.1) 08/19/2024 Xerosis of skin (ICD-10 - L85.3) 12/16/2024 Tinea unguium (ICD-10 - B35.1) 04/18/2025 Pain in right toe(s) (ICD-10 - M79.674) 08/19/2024 Pain in right toe(s) (ICD-10 - M79.674) 08/19/2024 Pain in left toe(s) (ICD-10 - M79.675) 04/18/2025 Pain in left toe(s) (ICD-10 - M79.675) 12/16/2024 Pain in right toe(s) (ICD-10 - M79.674) 12/16/2024 Pain in left toe(s) (ICD-10 - M79.675) 04/18/2025 Pain in right ankle and joints of right foot (ICD-10 - M25.571) 04/18/2025 Pain in right foot (ICD-10 - M79.671) 04/18/2025 Hallux rigidus, right foot (ICD-10 - M20.21) Chronic problem, Worse (4) 04/18/2025 Arthritis (ICD-10 - M19.90) Plan Of Treatment Pending Test Test Name Order Date 52678-QKPFQGH NAIL, 6 OR MORE 04/13/2020 38409-OJFWRZZ NAIL, 6 OR MORE 07/13/2020 38835-BOVDYTV NAIL, 6 OR MORE 11/20/2020 76226-ZKOXUID NAIL, 6 OR MORE 03/22/2021 94421-XCSSFOH NAIL, 6 OR MORE 07/23/2021 32855-KGOUQIZ NAIL, 6 OR MORE 11/26/2021 60193-JSGYWQV NAIL, 6 OR MORE 03/25/2022 58920-CJAALQZ NAIL, 6 OR MORE 07/22/2022 31463-GEIXJJD NAIL, 6 OR MORE 02/03/2023 32806-IVCLFPU NAIL, 6 OR MORE 08/11/2023 06212-QHLBMTK NAIL, 6 OR MORE 04/19/2024 46431-KPBZGZK NAIL, 6 OR MORE 08/19/2024 08233-NLABHCP NAIL, 6 OR MORE 12/16/2024 25370-ZYFNHJE NAIL, 6 OR MORE 04/18/2025 11261-Mnip Destruction, 1-14 08/11/2023 99088-Mxqgxwsv Plate 04/19/2024 98434-Afpsllqa Plate 03/25/2022 17703-Yhtudtik Plate 07/23/2021 60368-Omjzhnlw Plate 03/23/2020 31202-Ivsdgsnn Plate 03/22/2021 29281-Mupgqmlc Plate 02/03/2023 17589-Erzajwmz Plate 12/16/2024 05717-Nlrxndcf Plate Each Additional 24398-Ujilshmq Plate Each Additional 12/2022 46763- Debride <25 sq cm 04/13/2020 Next Appt Details Provider Name:Elvira Mills , 09/12/2025 09:15:00 AM, [address] [place], [address], Insurance Providers Payer Name Payer Address Payer Phone Subscriber Number Group Number Insured Name Patient Relationship to Insured Coverage Start Date Coverage End Date [employer] 65 Medicare Preferred [address] [place] [address] [phone] [id number] Lakesha Betancourt Self - patient is the insured Medical (General) History Medical History History ICD Code Back,Hip,and Knee pain Cataracts crown on big tooth Back pain Other hammer toe(s) (acquired), right fo ot M20.41 Primary osteoarthritis, right ankle and foot M19.071 Other hammer toe(s) (acquired), left rob t M20.42 Hallux valgus (acquired), left foot M20. 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
== END 2025-04-20 14:34 | disposition home or self-care (01) ==
LOC: HO.ENCR 13:57
PROVIDERS: PCP Internal Medicine; Visit Provider Student in an Organized Health Care Education/Training Program
DX: D44.7 Neoplasm of uncertain behavior of aortic body and other paraganglia (principal); E04.2 Nontoxic multinodular goiter
CPT/HCPCS: 99213

== ENCOUNTER → 2025-04-20 13:57 | Outpatient (BNVA) | payer MEDICARE, SELFPAY | PROVIDERS: PCP Internal Medicine; Visit Provider Student in an Organized Health Care Education/Training Program | DX: Z71.2 Person consulting for explanation of examination or test findings (principal); E04.2 Nontoxic multinodular goiter; D44.7 Neoplasm of uncertain behavior of aortic body and other paraganglia | CPT/HCPCS: 99212 ==